=== PATIENT | female | born 1970 | race African-American/Black ===

== ENCOUNTER 2017-01-29 14:23 | Observation (INO) | payer OTHER ==
[2017-01-29 15:45] LABS: ABSOLUTE BASOPHILS # (AUTO) 0.1 10^3/uL (0.0-0.2); ABSOLUTE EOSINOPHILS # (AUTO) 0.2 10^3/uL (0.0-0.6); ABSOLUTE MONOCYTES (AUTO) 0.5 10^3/uL (0.1-1.4); ABSOLUTE NEUT (AUTO) 2.2 10^3/uL (1.7-8.2); BASOPHILS % (AUTO) 1.7 % (0-2); EOSINOPHILS % (AUTO) 3.6 % (0-6); HEMATOCRIT 23.4 % (36.0-47.0); HGB HCT DIFFERENCE -2.4; LYMPHOCYTES % (AUTO) 39.6 % (13-45); MEAN CORPUSCULAR HEMOGLOBIN 16.6 pg (27.0-33.4); MONOCYTES % (AUTO) 10.8 % (3-13); RED BLOOD COUNT 4.22 10^6/uL (3.72-5.28); RED CELL DISTRIBUTION WIDTH 20.4 % (11.5-14.0); SEGMENTED NEUTROPHILS % (AUTO) 44.3 % (42-78); WHITE BLOOD COUNT 5.1 10^3/uL (4.0-10.5)
[2017-01-29 16:16] LABS: ANISOCYTOSIS 2+; MICROCYTOSIS 3+
[2017-01-29 16:17] LABS: BURR CELLS SLIGHT; HYPOCHROMASIA 2+; OVALOCYTES 2+; POIKILOCYTOSIS 3+; ROULEAUX SLIGHT; TARGET CELLS SLIGHT
[2017-01-29 16:18] LABS: MEAN CORPUSCULAR VOLUME 55 fl (80-97)
[2017-01-29 16:24] LABS: FERRITIN 3.46 ng/mL (6.2-137.0)
[2017-01-29] MEDS ORDERED: NORMAL SALINE 250 ML IV PRN ×2 (16:26)
[2017-01-29 16:55] LABS: FOLATE 9.53 ng/mL (>2.76)
[2017-01-29] MEDS ORDERED: FUROSEMIDE INJ/PF 20 MG/2 ML SDV IV PRN (18:34)
[2017-01-30 02:00] LABS: ABSOLUTE BASOPHILS # (AUTO) 0.1 10^3/uL (0.0-0.2); ABSOLUTE EOSINOPHILS # (AUTO) 0.2 10^3/uL (0.0-0.6); ABSOLUTE LYMPHOCYTES (AUTO) 2.7 10^3/uL (0.5-4.7); ABSOLUTE MONOCYTES (AUTO) 0.8 10^3/uL (0.1-1.4); ABSOLUTE NEUT (AUTO) 3.2 10^3/uL (1.7-8.2); BASOPHILS % (AUTO) 1.6 % (0-2); EOSINOPHILS % (AUTO) 2.6 % (0-6); HEMOGLOBIN 8.4 g/dL (12.0-15.5); HGB HCT DIFFERENCE -1.8; LYMPHOCYTES % (AUTO) 38.1 % (13-45); MEAN CORPUSCULAR HEMOGLOBIN 18.5 pg (27.0-33.4); MEAN CORPUSCULAR HGB CONC 31.1 g/dL (32.0-36.0); RED BLOOD COUNT 4.55 10^6/uL (3.72-5.28); RED CELL DISTRIBUTION WIDTH 22.3 % (11.5-14.0); SEGMENTED NEUTROPHILS % (AUTO) 45.7 % (42-78)
[2017-01-30 02:41] LABS: MEAN CORPUSCULAR VOLUME 59 fl (80-97)
[2017-01-30 02:54] LABS: ACANTHOCYTES 1+; ANISOCYTOSIS 3+; BURR CELLS SLIGHT; MICROCYTOSIS 4+; OVALOCYTES 2+; POIKILOCYTOSIS 3+; TOXIC GRANULATION 1+
[2017-01-30 02:55] LABS: TARGET CELLS 1+; TEAR DROP CELLS SLIGHT
[2017-01-30 04:26] VITALS: BP 125/58
[2017-01-30 15:04] LABS: PATH REVIEW PATHOLOGIST REVIEWED
== END 2017-01-30 04:35 | disposition home or self-care (01) ==
LOC: 2N 14:23
PROVIDERS: ADMIT Internal Medicine; ATTEND Internal Medicine
PROC: 30233N1 Transfusion of Nonautologous Red Blood Cells into Peripheral Vein, Percutaneous Approach (ICD-10-PCS; principal; 2017-01-29)
DX: D64.9 Anemia, unspecified (principal)
CPT/HCPCS: 86900; 86901; 36415 ×2; 36430; 86850; 82607; 82728; 82746; 83540; 83550; 85025 ×2; 85045; 84466; 86920; G0378 ×2; G0379; P9016; J1940

== ENCOUNTER → 2017-05-22 | Outpatient (CLI) | payer OTHER ==
--- NOTE | 2017-05-22 09:21 | RADIOLOGY REPORT (SQ) ---
EXAM DESCRIPTION: U/S NON-OB PELVIS W/O DOP COMPLETED DATE/TIME: 05/22/2017 8:58 am REASON FOR STUDY: MENORRHAGIA (N92.4) N92.4 EXCESSIVE BLEEDING IN THE PREMENOPAUSAL PERIOD COMPARISON: None. TECHNIQUE: Dynamic and static grayscale images acquired of the pelvis via transabdominal approach an d recorded on PACS. Additional selected color Doppler and spectral images recorded. LIMITATIONS: None. FINDINGS: UTERUS: Enlarged. Markedly heterogenous with multiple nodular masses, the largest measuri ng 7.6 cm. ENDOMETRIAL STRIPE: Poorly visualized. CERVIX: No nabothian cysts. RIGHT OVARY: Ovary not visualized. RIGHT OVARY DOPPLER: Ovary not visualized. LEFT OVARY: Ovary not visualized. LEFT OVARY DOPPLER: Ovary not visualized. FREE FLUID: None noted. OTHER: No other significant finding. MEASUREMENTS: UTERUS: 8.6 x 10.7 x 12.0 cm. ENDOMETRIAL STRIPE: Not visualized. RIGHT OVARY: Not visualized. LEFT OVARY: Not visualized. IMPRESSION: ENLARGED UTERUS WITH MARKED HETEROGENEITY AND MULTIPLE LARGE MASSES, MOST LIKELY DUE TO UTERINE FIBROIDS. OVARIES NOT VISUALIZED. TECHNICAL DOCUMENTATION: JOB ID: [id number] [employer]- All Rights Reserved
== END ==
LOC: RAD 07:40
PROVIDERS: ATTEND Internal Medicine
DX: N92.4 Excessive bleeding in the premenopausal period (principal)
CPT/HCPCS: 76856

== ENCOUNTER → 2017-06-13 | Outpatient (CLI) | payer OTHER ==
--- NOTE | 2017-06-13 14:18 | WOMENS IMAGING REPORT ---
EXAM DESCRIPTION: 3D SCREENING MAMMO BILAT COMPLETED DATE/TIME: 06/13/2017 1:29 pm REASON FOR STUDY: ROUTINE SCREENING; Z12.31 Z12.31 ENCNTR SCREEN MAMMOGRAM FOR MALIGNANT NEOPLASM O F MARC COMPARISON: 01/01/2016 and 10/28/2014. TECHNIQUE: Standard craniocaudal and mediolateral oblique views of each breast recorded using digita l acquisition and breast tomosynthesis. LIMITATIONS: None. FINDINGS: Findings present which are benign by mammographic criteria. No suspicious masses, calcifi cations or architectural distortion. Pertinent benign findings: Stable circumscribed nodule in the right breast and stable benign dermal c alcifications. Read with the assistance of CAD. .[facility] - R2 Cenova Version 1.3 .[facility] Imaging - R2 Cenova Version 1.3 .[facility] Imaging - R2 Cenova Version 2.4 .[facility] - R2 Cenova Version 2.4 .[facility] - R2 Bottom Steep Tender Version 9.2 Benign mammographic findings may include one or more of the following: Smooth masses, popcorn/rim/co arse calcifications, asymmetries, post-procedure changes, and lesions with long-standing stability. IMPRESSION: BENIGN MAMMOGRAPHIC FINDINGS. BIRADS 2 BREAST DENSITY: b. There are scattered areas of fibroglandular density. BIRAD: 2 BENIGN FINDING(S) RECOMMENDATION: RECOMMENDATION: ROUTINE SCREENING COMMENT: The patient has been notified of the results by letter per SA requirements. Additional no tification policies are in place for contacting patient with suspicious or incomplete findings. Quality ID #[id number]: The [employer] recommends an annual screening mammogram for women aged 40 years or over. This facility utilizes a reminder system to ensure that all patients receive reminder letters, and/or direct phone calls for appointments. This includes reminders for routine scr eening mammograms, diagnostic mammograms, or other Breast Imaging Interventions when appropriate. Th is patient will be placed in the appropriate reminder system. The [employer] (ACR) has developed recommendations for screening MRI of the breast s in certain patient populations, to be used in conjunction with mammography. Breast MRI surveillanc e may be appropriate for women with more than 20% lifetime risk of developing breast cancer as deter mined by genetic testing, significant family history of the disease, or history of mantle radiation f or Hodgkins Disease. ACR Practice Guidelines 2008. DBT Technology DBT is a type of tomographic mammography. With conventional mammography, overlapping breast tissue ma y make lesions difficult to detect, even with good compression. DBT uses an x-ray tube that rotates a round the breast, taking images at different angles. These images are then combined to create thin sl ices of the breast that the radiologist can view as a 3D reconstruction. The Hologic unit can perform full-field digital mammograms (2D imaging); or DBT (3D imaging); or both, in a combination mode that quickly performs both the mammogram and the tomosynthesis scan while the breast is still compressed. PQRS 6045F: Fluoroscopic imaging is not utilized for breast tomosynthesis. TECHNICAL DOCUMENTATION: FINDING NUMBER: (1) ASSESSMENT: (1) JOB ID: [id number] [employer]- All Rights Reserved
== END ==
LOC: WI 13:17
PROVIDERS: ATTEND Internal Medicine
DX: Z12.31 Encounter for screening mammogram for malignant neoplasm of breast (principal)
CPT/HCPCS: 77063; G0202; 77067

== ENCOUNTER 2017-11-02 07:42 | Day surgery (SDC) | payer OTHER ==
--- NOTE | 2017-10-25 13:55 | EKG REPORT ---
SEVERITY:- ABNORMAL ECG - SINUS RHYTHM FIRST DEGREE AV BLOCK PROBABLE LEFT ATRIAL ABNORMALITY : Confirmed by: Marline Lindo 25-Oct-2017 13:54:21
[2017-10-25 14:19] LABS: HEMATOCRIT 35.7 % (36.0-47.0); HEMOGLOBIN 11.4 g/dL (12.0-15.5); MEAN CORPUSCULAR HEMOGLOBIN 23.4 pg (27.0-33.4); MEAN CORPUSCULAR HGB CONC 32.1 g/dL (32.0-36.0); MEAN CORPUSCULAR VOLUME 73 fl (80-97); PLATELET COUNT 326 10^3/uL (150-450); RED CELL DISTRIBUTION WIDTH 14.9 % (11.5-14.0)
[2017-10-25 14:31] LABS: APPEARANCE,URINE CLEAR; BILIRUBIN,URINE NEGATIVE (NEGATIVE); COLOR,URINE STRAW; GLUCOSE, URINE NEGATIVE (NEGATIVE); KETONES,URINE NEGATIVE (NEGATIVE); LEUKOCYTE ESTERASE,URINE NEGATIVE (NEGATIVE); NITRITE,URINE NEGATIVE (NEGATIVE); PROTEIN,URINE NEGATIVE (NEGATIVE); URINE SPECIFIC GRAVITY 1.009; UROBILINOGEN,URINE NEGATIVE mg/dL (<2.0)
[2017-10-25 14:42] LABS: ALANINE AMINOTRANSFERASE 30 U/L (9-52); ALBUMIN 4.1 g/dL (3.5-5.0); ALKALINE PHOSPHATASE 92 U/L (38-126); ANION GAP 11 (5-19); ASPARTATE AMINO TRANSFERASE 21 U/L (14-36); BILIRUBIN,DIRECT 0.2 mg/dL (0.0-0.4); BILIRUBIN,TOTAL 0.5 mg/dL (0.2-1.3); BLOOD UREA NITROGEN 9 mg/dL (7-20); CALCIUM 9.4 mg/dL (8.4-10.2); CARBON DIOXIDE 26 mmol/L (22-30); CHLORIDE 104 mmol/L (98-107); GLUCOSE 128 mg/dL (75-110); POTASSIUM 4.5 mmol/L (3.6-5.0); SODIUM 140.9 mmol/L (137-145); TOTAL PROTEIN 7.4 g/dL (6.3-8.2)
--- NOTE | 2017-10-30 15:41 | RADIOLOGY REPORT (SQ) ---
EXAM DESCRIPTION: CHEST PA/LATERAL COMPLETED DATE/TIME: 10/30/2017 3:19 pm REASON FOR STUDY: PRE OP COMPARISON: 04/07/2015 EXAM PARAMETERS: NUMBER OF VIEWS: two views TECHNIQUE: Digital Frontal and Lateral radiographic views of the chest acquired. RADIATION DOSE: NA LIMITATIONS: none FINDINGS: LUNGS AND PLEURA: No opacities, masses or pneumothorax. No pleural effusion. MEDIASTINUM AND HILAR STRUCTURES: No masses or contour abnormalities. HEART AND VASCULAR STRUCTURES: Heart normal size. No evidence for failure. BONES: No acute findings. HARDWARE: None in the chest. OTHER: No other significant finding. IMPRESSION: NO SIGNIFICANT RADIOGRAPHIC FINDING IN THE CHEST. TECHNICAL DOCUMENTATION: JOB ID: [id number] [employer]- All Rights Reserved
[2017-10-30 16:21] LABS: HEMOGLOBIN 10.5 g/dL (12.0-15.5); MEAN CORPUSCULAR HEMOGLOBIN 23.5 pg (27.0-33.4); MEAN CORPUSCULAR HGB CONC 32.7 g/dL (32.0-36.0); MEAN CORPUSCULAR VOLUME 72 fl (80-97); PLATELET COUNT 287 10^3/uL (150-450); RED BLOOD COUNT 4.46 10^6/uL (3.72-5.28); RED CELL DISTRIBUTION WIDTH 15.1 % (11.5-14.0); WHITE BLOOD COUNT 6.5 10^3/uL (4.0-10.5)
[2017-10-30 16:56] LABS: ALANINE AMINOTRANSFERASE 35 U/L (9-52); ALBUMIN 3.6 g/dL (3.5-5.0); ALKALINE PHOSPHATASE 87 U/L (38-126); ANION GAP 11 (5-19); ASPARTATE AMINO TRANSFERASE 26 U/L (14-36); BILIRUBIN,DIRECT 0.1 mg/dL (0.0-0.4); BILIRUBIN,TOTAL 0.2 mg/dL (0.2-1.3); BLOOD UREA NITROGEN 11 mg/dL (7-20); CALCIUM 8.9 mg/dL (8.4-10.2); CARBON DIOXIDE 23 mmol/L (22-30); CHLORIDE 108 mmol/L (98-107); GLUCOSE 132 mg/dL (75-110); POTASSIUM 4.2 mmol/L (3.6-5.0); SODIUM 141.9 mmol/L (137-145); TOTAL PROTEIN 6.5 g/dL (6.3-8.2)
[~2017-11-02 07:42] MED LIST: BUPIVACAINE HCL 0.25% /EPINEPHRINE INJ/PF 30 ML SDV ONE; CEFAZOLIN 1 GM/D5W RTU 1 GM/50 ML RTUPB IV PRN; LACTATED RINGERS 1000 ML IV PRN; LIDOCAINE 0.5% INJ-PF (5 MG/ML) 50 ML SDV SUBCUT PRN; METHYLENE BLUE 50 MG/10 ML AMPULE ONE
[2017-11-02 08:22] LABS: INTERNATIONAL RATION (INR) 0.89; PROTHROMBIN TIME 12.7 SEC (11.4-15.4)
[2017-11-02 08:23] LABS: PARTIAL THROMBOPLASTIN TIME 28.8 SEC (23.5-35.8)
[2017-11-02] MEDS ORDERED: ALBUTEROL SULFATE 0.083% NEB 2.5 MG/3 ML AMPUL NEB ONE ×2 (08:36→09:00)
[2017-11-02] MEDS ORDERED: FAMOTIDINE INJ/PF 20 MG/2 ML SDV IV ONE ×2 (08:37→09:00)
[2017-11-02] MEDS ORDERED: METOCLOPRAMIDE HCL INJ/PF 10 MG/2 ML SDV ONE (08:45)
[2017-11-02] MEDS ORDERED: METOCLOPRAMIDE HCL INJ/PF 10 MG/2 ML SDV IV ONE (09:00)
[2017-11-02] MEDS ORDERED: MIDAZOLAM 2 MG/2 ML INJ ONE (09:05)
[2017-11-02] MEDS ORDERED: DEXMEDETOMIDINE INJ 80 MCG/20 ML VIAL IV ONE (09:05)
[2017-11-02] MEDS ORDERED: ACETAMINOPHEN 100 ML IV ONE ×2 (09:05→15:30)
[2017-11-02] MEDS ORDERED: PROPOFOL INJ 200 MG/20 ML VIAL IV ONE (09:05)
[2017-11-02] MEDS ORDERED: FENTANYL CITRATE INJ/PF 100 MCG/2 ML AMPUL ONE ×2 (09:05→13:38)
[2017-11-02] MEDS ORDERED: HYDROMORPHONE HCL INJ/PF 2 MG/ML AMPULE ONE (09:06)
[2017-11-02] MEDS ORDERED: BUPIVACAINE HCL 0.25% /EPINEPHRINE INJ/PF 30 ML SDV ONE (09:18)
[2017-11-02] MEDS ORDERED: MEPERIDINE HCL/PF INJ 25 MG/1 ML DISP.SYRIN IV PRN (10:15)
[2017-11-02] MEDS ORDERED: ONDANSETRON HCL INJ/PF 4 MG/2 ML SDV IV PRN ×2 (10:15→18:24)
[2017-11-02] MEDS ORDERED: DIPHENHYDRAMINE HCL 50 MG/ML VIAL IV PRN (10:15)
[2017-11-02] MEDS ORDERED: LABETALOL HCL INJ 20 MG/4 ML DISP.SYRIN IV PRN (10:15)
[2017-11-02] MEDS ORDERED: PROMETHAZINE HCL INJ 25 MG/1 ML VIAL IV PRN ×2 (10:15)
[2017-11-02] MEDS ORDERED: FENTANYL CITRATE INJ/PF 100 MCG/2 ML AMPUL IV PRN ×3 (10:15)
[2017-11-02] MEDS ORDERED: EPHEDRINE SULFATE INJ 50 MG/1 ML AMPULE ONE (10:55)
[2017-11-02] MEDS ORDERED: IBUPROFEN 800 MG in NORMAL SALINE 250 ML IV ONE (13:30)
[2017-11-02] MEDS ORDERED: OXYCODONE-ACETAMINOPHEN 5-325 MG TABLET PO PRN (15:03)
[2017-11-02] MEDS: MORPHINE SULFATE 10 MG/ML INJ IV PRN ×2 (16:30→19:48)
[2017-11-02] MEDS ORDERED: ONDANSETRON HCL INJ/PF 4 MG/2 ML SDV ONE (16:39)
[2017-11-02] MEDS ORDERED: SUCCINYLCHOLINE CHLORIDE INJ 200 MG/10 ML VIAL ONE (16:39)
[2017-11-02] MEDS ORDERED: DEXAMETHASONE SOD PHOSPHATE INJ 4 MG/1 ML VIAL ONE (16:39)
[2017-11-02] MEDS ORDERED: ROCURONIUM BROMIDE INJ 50 MG/5 ML VIAL IV ONE (16:39)
[2017-11-02] MEDS ORDERED: LIDOCAINE 2% INJ-PF (20 MG/ML) 2 ML AMPUL ONE (16:39)
[2017-11-02] MEDS ORDERED: NEOSTIGMINE METHYLSULFATE 10 MG/10 ML VIAL ONE (16:39)
[2017-11-02] MEDS ORDERED: GLYCOPYRROLATE INJ 0.4 MG/2 ML VIAL ONE (16:39)
[2017-11-02] MEDS ORDERED: IBUPROFEN 800 MG TABLET PO PRN (16:59)
[2017-11-02] MEDS ORDERED: FUROSEMIDE 20 MG TABLET PO PRN ×2 (16:59→17:03)
[2017-11-02] MEDS ORDERED: ENOXAPARIN SODIUM 120 MG SUBCUT PRN (16:59)
[2017-11-02] MEDS: RINGERS SOLUTION,LACTATED 1,000 ML IV PRN (17:00)
[2017-11-02] MEDS: KETOROLAC TROMETHAMINE INJ/PF 30 MG/1 ML SDV IV SCH (18:41)
[2017-11-02] MEDS ORDERED: ENOXAPARIN SODIUM 120 MG SUBCUT SCH (21:00)
[2017-11-02] MEDS: ENOXAPARIN SODIUM INJ 40 MG/0.4 ML DISP.SYRIN SUBCUT SCH (22:22)
[2017-11-03] MEDS: KETOROLAC TROMETHAMINE INJ/PF 30 MG/1 ML SDV IV SCH ×2 (01:42→10:49)
[2017-11-03] MEDS: RINGERS SOLUTION,LACTATED 1,000 ML IV PRN (02:11)
[2017-11-03] MEDS: LANSOPRAZOLE 30 MG TAB.RAP.DR PO SCH ×2 (05:02→16:54)
[2017-11-03] MEDS: MORPHINE SULFATE 10 MG/ML INJ IV PRN (05:23)
[2017-11-03 05:26] LABS: HEMATOCRIT 28.5 % (36.0-47.0); HEMOGLOBIN 9.1 g/dL (12.0-15.5); MEAN CORPUSCULAR HGB CONC 31.9 g/dL (32.0-36.0); MEAN CORPUSCULAR VOLUME 72 fl (80-97); PLATELET COUNT 277 10^3/uL (150-450); RED BLOOD COUNT 3.96 10^6/uL (3.72-5.28); RED CELL DISTRIBUTION WIDTH 14.9 % (11.5-14.0); WHITE BLOOD COUNT 18.1 10^3/uL (4.0-10.5)
[2017-11-03] MEDS ORDERED: NALOXONE HCL INJ/PF 0.4 MG/1 ML SDV ONE (06:48)
[2017-11-03 06:58] LABS: HEMATOCRIT 26.9 % (36.0-47.0); HEMOGLOBIN 8.6 g/dL (12.0-15.5); MEAN CORPUSCULAR HEMOGLOBIN 23.1 pg (27.0-33.4); MEAN CORPUSCULAR HGB CONC 32.1 g/dL (32.0-36.0); MEAN CORPUSCULAR VOLUME 72 fl (80-97); PLATELET COUNT 265 10^3/uL (150-450); RED BLOOD COUNT 3.73 10^6/uL (3.72-5.28); RED CELL DISTRIBUTION WIDTH 15.2 % (11.5-14.0); WHITE BLOOD COUNT 19.1 10^3/uL (4.0-10.5)
[2017-11-03 07:09] LABS: BLOOD UREA NITROGEN 11 mg/dL (7-20); CALCIUM 8.7 mg/dL (8.4-10.2); GLUCOSE 128 mg/dL (75-110)
[2017-11-03 07:10] LABS: ANION GAP 8 (5-19); CARBON DIOXIDE 24 mmol/L (22-30); CHLORIDE 108 mmol/L (98-107); POTASSIUM 4.1 mmol/L (3.6-5.0); SODIUM 139.6 mmol/L (137-145)
[2017-11-03 07:12] LABS: INTERNATIONAL RATION (INR) 1.05; PARTIAL THROMBOPLASTIN TIME 28.6 SEC (23.5-35.8); PROTHROMBIN TIME 14.4 SEC (11.4-15.4)
[2017-11-03] MEDS ORDERED: NALOXONE HCL INJ/PF 0.4 MG/1 ML SDV IV ONE (07:15)
[2017-11-03 07:22] LABS: CREATINE KINASE MB 1.08 ng/mL (<4.55); NT PRO BNP 301 pg/mL (<125)
[2017-11-03 07:23] LABS: TROPONIN I < 0.012 ng/mL
[2017-11-03 07:47] LABS: ABSOLUTE LYMPHOCYTES# (MANUAL) 2.7 10^3/uL (0.5-4.7); ABSOLUTE MONOCYTES # (MANUAL) 1.1 10^3/uL (0.1-1.4); ABSOLUTE NEUTROPHILS# (MANUAL) 15.3 10^3/uL (1.7-8.2); BASOPHILS % (MANUAL) 0 % (0-2); EOSINOPHILS % (MANUAL) 0 % (0-6); LYMPHOCYTES % (MANUAL) 14 % (13-45); MONOCYTES % (MANUAL) 6 % (3-13); SEGMENTED NEUTROPHILS % (MAN) 80 % (42-78); TOTAL CELLS COUNTED 100
[2017-11-03 07:48] LABS: BURR CELLS SLIGHT; HYPOCHROMASIA SLIGHT; OVALOCYTES 2+; PLATELET COMMENT ADEQUATE; POIKILOCYTOSIS 2+; POLYCHROMASIA 1+; TOXIC VACUOLATION PRESENT
--- NOTE | 2017-11-03 07:53 | EKG REPORT ---
SEVERITY:- ABNORMAL ECG - SINUS RHYTHM FIRST DEGREE AV BLOCK : Confirmed by: Liborio Min MD 03-Nov-2017 07:53:29
[2017-11-03] MEDS ORDERED: (PENDING PHARMACY ID) (Losartan Potassium [Losartan Potassium] 100 MG) PO SCH (10:00)
[2017-11-03] MEDS ORDERED: ENOXAPARIN SODIUM INJ 120 MG/0.8 ML DISP.SYRIN SUBCUT SCH (10:00)
--- NOTE | 2017-11-03 10:30 | RADIOLOGY REPORT (SQ) ---
EXAM DESCRIPTION: CTA CHEST COMPLETED DATE/TIME: 11/03/2017 10:14 am REASON FOR STUDY: rule out pE N92.1 EXCESSIVE AND FREQUENT MENSTRUATION WITH IRREGULAR CYC D25.9 L EIOMYOMA OF UTERUS, UNSPECIFIED COMPARISON: CT chest 05/26/2016 TECHNIQUE: CT scan of the chest performed using helical scanning technique with dynamic intravenous contrast injection. Images reviewed with lung, soft tissue and bone windows. Reconstructed coronal and sagittal MPR images reviewed. Additional 3 dimensional post-processing performed to develop Maximal Intensity Projection images (UT P). All images stored on PACS. All CT scanners at this facility use dose modulation, iterative reconstruction, and/or weight based d osing when appropriate to reduce radiation dose to as low as reasonably achievable (ALARA). [facility]: Dose Right [facility]: CareDose [facility]: Dose Right [facility]: Teradose 4D [facility]: [place] CONTRAST TYPE AND DOSE: contrast/concentration: Isovue 370.00 mg/ml; Total Contrast Delivered: 79.0 ml; Total Saline Delivered: 110.0 ml Contrast bolus adequate for pulmonary arteries and aorta. RENAL FUNCTION: Creatinine 0.72 RADIATION DOSE: CT Rad equipment meets quality standard of care and radiation dose reduction techniq ues were employed. CTDIvol: 2.8 - 39.4 mGy. DLP: 3089 mGy-cm. . LIMITATIONS: None. FINDINGS: LUNGS AND PLEURA: There is atelectasis in the posterior costophrenic sulci bilaterally, an d in the posterior aspect of the right upper lobe. No pleural effusions. No pneumothorax. No pulmonary nodules. Airways are patent. AORTA AND GREAT VESSELS: No aneurysm. No gross evidence of thoracic aortic dissection HEART: No pericardial effusion. No significant coronary artery calcifications. Mild cardiomegaly. PULMONARY ARTERIES: No emboli to the main, right or left lobar, or proximal segmental pulmonary arter ies. HILAR AND MEDIASTINAL STRUCTURES: No identified masses or abnormal nodes. HARDWARE: None in the chest. UPPER ABDOMEN: Post gastric sleeve procedure. Small hiatal hernia. Clips right upper quadrant post cholecystectomy. THYROID AND OTHER SOFT TISSUES: Mild diffuse thyromegaly BONES: No acute or significant finding. 3D MIPS: Confirm above findings. OTHER: No other significant finding. IMPRESSION: No CT angio evidence of acute pulmonary emboli or thoracic aortic dissection Dependent atelectasis bilaterally Mild cardiomegaly COMMENT: Quality ID # 436: Final reports with documentation of one or more dose reduction techniques (e.g., Automated exposure control, adjustment of the mA and/or kV according to patient size, use of iterative reconstruction technique) TECHNICAL DOCUMENTATION: JOB ID: [id number] [employer]- All Rights Reserved
--- NOTE | 2017-11-03 10:36 | RADIOLOGY REPORT (SQ) ---
EXAM DESCRIPTION: CT ABD/PELVIS WITH IV ONLY COMPLETED DATE/TIME: 11/03/2017 10:19 am REASON FOR STUDY: bleeding, operative site N92.1 EXCESSIVE AND FREQUENT MENSTRUATION WITH IRREGULAR CYC D25.9 LEIOMYOMA OF UTERUS, UNSPECIFIED COMPARISON: CT angio chest same date Pelvic ultrasound 05/22/2017 TECHNIQUE: CT scan of the abdomen and pelvis performed using helical scanning technique with dynamic intravenous contrast injection. No oral contrast. Images reviewed with lung, soft tissue, and bone windows. Reconstructed coronal and sagittal MPR images reviewed. Delayed images for evaluation of the urinary system also acquired. All images stored on PACS. All CT scanners at this facility use dose modulation, iterative reconstruction, and/or weight based d osing when appropriate to reduce radiation dose to as low as reasonably achievable (ALARA). [facility]: Dose Right [facility]: CareDose [facility]: Dose Right [facility]: Teradose 4D [facility]: Netpulse CONTRAST TYPE AND DOSE: 79 mm Isovue 370- low osmolar. RENAL FUNCTION: Creatinine 0.72 RADIATION DOSE: 46 mGy. LIMITATIONS: None. FINDINGS: Patient is post hysterectomy. There are benign postsurgical air bubbles along the anterio r abdominal wall fat and inferior aspect of the rectus muscle sheath. Few tiny air bubbles in the sp terrie of Retzius. No incisional or pelvic hematoma. Uterus is surgically absent. Normal size ovaries bilaterally adjacent to the external iliac artery a nd vein on axial image 80. There is an air bubble in the urinary bladder likely from prior Cole catheter. No free pelvic fluid. LOWER CHEST: Bibasilar atelectasis. Mild cardiomegaly. LIVER: Normal size. No masses. No dilated ducts. SPLEEN: Normal size. No focal lesions. PANCREAS: No masses. No significant calcifications. No adjacent inflammation or peripancreatic fluid collections. Pancreatic duct not dilated. GALLBLADDER: Surgically absent ADRENAL GLANDS: No significant masses or asymmetry. RIGHT KIDNEY AND URETER: No solid masses. 2 mm right lower pole intrarenal nonobstructive stone. No hydronephrosis or hydroureter. LEFT KIDNEY AND URETER: No solid masses. 10 mm right lower pole intrarenal nonobstructive stone. No hydronephrosis or hydroureter. AORTA AND VESSELS: No aneurysm. No dissection. Renal arteries, SMA, celiac without stenosis. RETROPERITONEUM: No retroperitoneal adenopathy, hemorrhage or masses. BOWEL AND PERITONEAL CAVITY: No masses or inflammatory changes. No free fluid or peritoneal masses. Post gastric sleeve procedure APPENDIX: Normal. PELVIS: As above ABDOMINAL WALL: No masses. No hernias. BONES: No significant or acute findings. OTHER: No other significant finding. IMPRESSION: Expected benign postoperative changes over the pelvis and low anterior abdominal wall po st recent hysterectomy. No CT findings worrisome for abscess or hematoma. TECHNICAL DOCUMENTATION: JOB ID: [id number] Quality ID # [id number]: Final reports with documentation of one or more dose reduction techniques (e.g., Au tomated exposure control, adjustment of the mA and/or kV according to patient size, use of iterative reconstruction technique) 2010 [employer]- All Rights Reserved
--- NOTE | 2017-11-03 10:45 | PDOC PROGRESS REPORT ---
Subjective Progress Note for:: 11/03/17 Subjective:: had episode of unresponsiveness earlier today after administration of morphine. Now feeling well except for normal post operative pain at incision and some mild nausea. no flatus as yet. Reason For Visit: N92.1 EXCESSIVE AND FREQUENT MENSTRUATION W, D25.9 Physical Exam - Physical Exam Vital Signs: Temp Pulse Resp BP Pulse Ox 98.5 F 82 20 137/68 H 100 11/03/17 08:00 11/03/17 08:00 11/03/17 08:00 11/03/17 08:00 11/03/17 08:00 Pulse Oximeter Continuous Start: 11/02/17 16: 55 Freq: Status: Active Document 11/03/17 04:39 EAL (Rec: 11/03/17 04:39 EAL [email or web address]) Pulse Oximetry Assessment Oxygen Saturation (92-100) 100 Oxygen Flow Rate (L/min) 2 Oxygen Delivery Method Nasal Cannula Fraction of Inspired Oxygen (FIO2) 28 Equipment Usage Equipment in Use Continuous SpO2 Machine # n1 Intake & Output 11/02/17 11/03/17 11/04/17 06:59 06:59 06:59 Intake Total 2750 Output Total 1900 Balance 850 Weight 127.01 kg General appearance: PRESENT: no acute distress, cooperative - abdomen soft and appropriately tender at incision. + BS that are soft. Result Laboratory Results: 11/03/17 06:47 11/03/17 06:47 11/03/17 11/03/17 11/03/17 05:02 06:47 06:47 WBC 18.1 H 19.1 H RBC 3.96 3.73 Hgb 9.1 L 8.6 L Hct 28.5 L 26.9 L MCV 72 L 72 L MCH 23.0 L 23.1 L MCHC 31.9 L 32.1 RDW 14.9 H 15.2 H Plt Count 277 265 Seg Neutrophils % Not Reportable Lymphocytes % Not Reportable Monocytes % Not Reportable Eosinophils % Not Reportable Basophils % Not Reportable Absolute Neutrophils Not Reportable Absolute Lymphocytes Not Reportable Absolute Monocytes Not Reportable Absolute Eosinophils Not Reportable Absolute Basophils Not Reportable Sodium Potassium Chloride Carbon Dioxide Anion Gap BUN Creatinine Est GFR ( Amer) Est GFR (Non-Af Amer) Glucose Calcium Blood Type O POSITIVE Antibody Screen NEGATIVE 11/03/17 06:47 WBC RBC Hgb Hct MCV MCH MCHC RDW Plt Count Seg Neutrophils % Lymphocytes % Monocytes % Eosinophils % Basophils % Absolute Neutrophils Absolute Lymphocytes Absolute Monocytes Absolute Eosinophils Absolute Basophils Sodium 139.6 Potassium 4.1 Chloride 108 H Carbon Dioxide 24 Anion Gap 8 BUN 11 Creatinine 0.72 Est GFR ( Amer) > 60 Est GFR (Non-Af Amer) > 60 Glucose 128 H Calcium 8.7 Blood Type Antibody Screen 11/03/17 06:47 CK-MB (CK-2) 1.08 Troponin I < 0.012 NT-Pro-B Natriuret Pep 301 H Impressions: Chest X-Ray 10/30/17 15:07 IMPRESSION: NO SIGNIFICANT RADIOGRAPHIC FINDING IN THE CHEST. Abdomen/Pelvis CT 11/03/17 00:00 IMPRESSION: Expected benign postoperative changes over the pelvis and low anterior abdominal wall post recent hysterectomy. No CT findings worrisome for abscess or hematoma. Chest/Abdomen CTA 11/03/17 00:00 IMPRESSION: No CT angio evidence of acute pulmonary emboli or thoracic aortic dissection Dependent atelectasis bilaterally Mild cardiomegaly Assessment & Plan - Diagnosis (1) Abnormal uterine bleeding Is this a current diagnosis for this admission?: Yes (2) Leiomyoma of body of uterus Qualifiers: Uterine leiomyoma location: intramural, submucous, and subserous Qualified Code(s): D25.1 - Intramural leiomyoma of uterus; D25.0 - Submucous leiomyoma of uterus; D25.0 - Submucous leiomyoma of uterus; D25.2 - Subserosal leiomyoma of uterus; D25.2 - Subserosal leiomyoma of uterus Is this a current diagnosis for this admission?: Yes (3) Pelvic pain Is this a current diagnosis for this admission?: Yes (4) Anemia Qualifiers: Iron deficiency anemia type: chronic blood loss Is this a current diagnosis for this admission?: Yes (5) Morbid obesity due to excess calories Is this a current diagnosis for this admission?: No - Plan Summary Plan Summary: CT scans both negative for PE or post op hematoma/abscess. Other labs appropriate. Hypotensive event most likely from recent Morphine administration. Continue current managment. Will continue to plan for discharge in AM unless otherwise indicated.
[2017-11-03] MEDS: LOSARTAN POTASSIUM 50 MG TABLET PO SCH (10:49)
[2017-11-03] MEDS: ENOXAPARIN SODIUM INJ 40 MG/0.4 ML DISP.SYRIN SUBCUT SCH ×2 (10:49→21:31)
[2017-11-03] MEDS: IBUPROFEN 800 MG TABLET PO PRN (18:18)
[2017-11-04] MEDS: IBUPROFEN 800 MG TABLET PO PRN ×2 (01:04→11:27)
[2017-11-04] MEDS: LANSOPRAZOLE 30 MG TAB.RAP.DR PO SCH (07:19)
[2017-11-04] MEDS: LOSARTAN POTASSIUM 50 MG TABLET PO SCH (09:50)
[2017-11-04] MEDS: ENOXAPARIN SODIUM INJ 40 MG/0.4 ML DISP.SYRIN SUBCUT SCH (09:51)
[2017-11-04 10:53] VITALS: BP 138/67
--- NOTE | 2017-11-04 10:54 | PDOC DISCHARGE SUMMARY ---
General - Admit/Disc Date/PCP Admission Date/Primary Care Provider: CARRIE HERNANDEZ MD Discharge Date: 11/04/17 - Discharge Diagnosis (1) Abnormal uterine bleeding Is this a current diagnosis for this admission?: Yes (2) Leiomyoma of body of uterus Is this a current diagnosis for this admission?: Yes (3) Pelvic pain Is this a current diagnosis for this admission?: Yes (4) Anemia Is this a current diagnosis for this admission?: Yes (5) Morbid obesity due to excess calories Is this a current diagnosis for this admission?: No - Additional Information Home Medications: Furosemide [Lasix 20 mg Tablet] 1 cap PO DAILY PRN 05/27/16 Esomeprazole Magnesium [Nexium] 40 mg PO BID 10/25/17 Ibuprofen [Motrin 800 mg Tablet] 800 mg PO TID PRN 10/25/17 Enoxaparin Sodium [Lovenox Inj 120 mg/0.8 ml Disp.syrin] 120 mg SUBCUT ASDIR PRN 11/01/17 Losartan Potassium 100 mg PO DAILY 11/01/17 History of Present Illness History of Present Illness: STEVEN CORREIA is a 47 year old female Hospital Course Hospital Course: underwent SHERON w/ b/l salpingectomy. Post operative episode of syncope with negative PE w/u. Otherwise, normal post operative course. Physical Exam - Physical Exam Vital Signs: Temp Pulse Resp BP Pulse Ox 98.4 F 77 20 143/72 H 97 11/04/17 08:40 11/04/17 08:40 11/04/17 08:40 11/04/17 08:40 11/04/17 08:40 Pulse Oximeter Continuous Start: 11/02/17 16: 55 Freq: RTQ4 Status: Active Document 11/04/17 04:00 SFL (Rec: 11/04/17 05:13 SFL [email or web address]) Pulse Oximetry Assessment Oxygen Saturation (92-100) 100 Oxygen Flow Rate (L/min) 2 Oxygen Delivery Method Nasal Cannula Equipment Usage Equipment in Use Continuous Pulse Oximeter 24 Hour Charge Charge Now Continuous SpO2 Machine # 1 Intake & Output 11/03/17 11/04/17 11/05/17 06:59 06:59 06:59 Intake Total 2750 620 Output Total 1900 500 Balance 850 120 Weight 127.01 kg General appearance: PRESENT: no acute distress, cooperative GI/Abdominal exam: PRESENT: soft, tenderness - appropriate post op pain. dressing partially stained. No signs of infection. Result Laboratory Results: 11/03/17 06:47 11/03/17 06:47 11/03/17 06:47 CK-MB (CK-2) 1.08 Troponin I < 0.012 NT-Pro-B Natriuret Pep 301 H Impressions: Chest X-Ray 10/30/17 15:07 IMPRESSION: NO SIGNIFICANT RADIOGRAPHIC FINDING IN THE CHEST. Abdomen/Pelvis CT 11/03/17 00:00 IMPRESSION: Expected benign postoperative changes over the pelvis and low anterior abdominal wall post recent hysterectomy. No CT findings worrisome for abscess or hematoma. Chest/Abdomen CTA 11/03/17 00:00 IMPRESSION: No CT angio evidence of acute pulmonary emboli or thoracic aortic dissection Dependent atelectasis bilaterally Mild cardiomegaly Plan Discharge Plan: will discharge home with normal post operative instructions and precautions. To follow up in 1 week at [facility] for dressing removal and incision check. Time Spent: Less than 30 Minutes
--- NOTE | 2017-11-30 17:09 | OPERATIVE REPORT E ---
Operative Report NAME: STEVEN CORREIA : 1970 AGE: 47Y DATE OF SURGERY: 11/02/2017 ROOM: 212 PREOPERATIVE DIAGNOSES: 1. Abnormal uterine bleeding. 2. Symptomatic fibroids. 3. Anemia. POSTOPERATIVE DIAGNOSES: 1. Abnormal uterine bleeding. 2. Symptomatic fibroids. 3. Anemia. SURGEON: CRISTA REES M.D. ANESTHESIA: Dr. Valerio with general. FINDINGS: A 12-week uterus with multiple fibroids. COMPLICATIONS: None. ESTIMATED BLOOD LOSS: 500 mL. SPECIMENS REMOVED: Uterus, cervix, and fallopian tubes x2. PROCEDURE: Total abdominal hysterectomy with bilateral salpingectomy. PROCEDURE IN DETAIL: Attempt was made for a vaginal approach; however, it was quickly ascertained that the uterus was too large. Therefore, a switch to an open laparotomy approach was taken and the patient was placed in supine position with Cole catheter to gravity. The skin incision was made in a Pfannenstiel fashion and carried through to the underlying layer of fascia with the same scalpel. The fascia was excised and extended laterally. The fascia was dissected from the rectus muscle sharply with Alejandre's. The rectus muscle was divided and the peritoneal cavity was entered bluntly. The bowel was then packed away with moist laparotomy sponges and the patient was placed in Trendelenburg. An Case retractor was placed to assist with visualization. The uterus was grasped on the fundus with a couple of towel clips for manipulation, and beginning with the left fallopian tube, this was transected using the LigaSure. The utero-ovarian ligament was then transected using the LigaSure and the uterine arteries were skeletonized and transected using the LigaSure on the left. This procedure was repeated on the right adnexa, removing the fallopian tube and then transecting the utero-ovarian ligament with the LigaSure and continuing transection and skeletonization of the uterine artery again with the LigaSure until the cervix was palpable. The upper portion of the uterus and all the fibroids were then amputated using a 10-blade scalpel and the cervical stump was grasped with a couple of Ford's. The vaginal cuff angles were then tied off with 2 sutures of 0 Vicryl until the cervix was palpable underneath in the mucosa and the rest of the specimen was then amputated with Adrián's using the cervix as a guide. The vaginal cuff was then closed with interrupted sutures of 0 Vicryl. The pedicles were reinspected and found to be hemostatic. The held sutures were cut and the bowel was unpacked and the fascia was closed in with 0 Vicryl. The subcutaneous layer was closed with plain catgut and the skin was closed with 4-0 Vicryl. Patient tolerated procedure well. Sponge, lap, and needle counts were correct x2, and the patient was taken to recovery in stable condition. DICTATING PHYSICIAN: CRISTA REES M.D. [id number] PHY#: [id number] ID: [id number] JOB#: [id number] ACCT: [id number] cc:CRISTA REES M.D. >
== END 2017-11-04 12:40 | disposition home or self-care (01) ==
LOC: OROUT 07:42 → 2N 14:29 → OROUT 11-04 12:40
PROVIDERS: ATTEND Obstetrics & Gynecology
PROC: 0UT70ZZ Resection of Bilateral Fallopian Tubes, Open Approach (ICD-10-PCS; 2017-11-02)
PROC: 0UT97ZZ Resection of Uterus, Via Natural or Artificial Opening (ICD-10-PCS; 2017-11-02)
PROC: 0UT90ZZ Resection of Uterus, Open Approach (ICD-10-PCS; principal; 2017-11-02 09:30)
DX: N92.1 Excessive and frequent menstruation with irregular cycle (principal); D25.9 Leiomyoma of uterus, unspecified; N80.0 Endometriosis of uterus; N84.0 Polyp of corpus uteri; N83.8 Other noninflammatory disorders of ovary, fallopian tube and broad ligament; R10.2 Pelvic and perineal pain; D50.9 Iron deficiency anemia, unspecified; E11.9 Type 2 diabetes mellitus without complications; I10 Essential (primary) hypertension; G47.33 Obstructive sleep apnea (adult) (pediatric); D86.9 Sarcoidosis, unspecified; K21.9 Gastro-esophageal reflux disease without esophagitis; J45.909 Unspecified asthma, uncomplicated; I51.7 Cardiomegaly; J98.11 Atelectasis; E66.01 Morbid (severe) obesity due to excess calories; Z68.42 Body mass index [BMI] 45.0-49.9, adult; Z79.899 Other long term (current) drug therapy; Z79.1 Long term (current) use of non-steroidal anti-inflammatories (NSAID); Z79.01 Long term (current) use of anticoagulants; Z86.711 Personal history of pulmonary embolism
CPT/HCPCS: 58150; 58260; 93005 ×2; 86900 ×2; 86901 ×2; 36415 ×3; 82553; 86850 ×2; 82962; 84132; 85025; 85027 ×3; 85610; 85730; 81025; 80048; 80053 ×2; 81001; 84484; 83880; 88307 ×2; 71020; 71275; 74177; 93010 ×2; 94762 ×3; J2250; J3490 ×4; J0690; J1100; J3010; J1885 ×2; J2765; J2270 ×2; J2310; J1650 ×3; J1170; J0330; J2405; J7050; J7120 ×2; J2704; S0028; J0131; J1741; Q9968; 944

== ENCOUNTER 2017-11-09 21:52 | Inpatient (IN) | payer OTHER ==
--- NOTE | 2017-11-09 22:14 | ER Document Report ---
ED General - General Chief Complaint: Shortness Of Breath Stated Complaint: SHORTNESS OF BREATH Time Seen by Provider: 11/09/17 22:13 Notes: Patient is a 47 year old female who is POD 7 from a SHERON with Dr Coleman. She presents today complaining of chest pain, shortness of breath and generalized weakness that started today. She admits to a h/o PE's and is on home lovenox. She states today she woke up from a nap and felt like her BP was really low and felt drained. She states she took a nap and then woke up this evening with chest discomfort and tightness in her chest. She states given her history of PE she wanted to come to the ED. She also admits to a h/o anemia requiring Fe and blood transfusions over the past year PMH: HTN, anemia, h/o PE PSH: gastric bypass, SHERON, right ankle reconstruction SH: denies tobacco use, etoh or drug use TRAVEL OUTSIDE OF THE [place] IN LAST 30 DAYS: No - Related Data Allergies/Adverse Reactions: No Known Allergies Allergy (Verified 11/09/17 21:53) Past Medical History - Social History Smoking Status: Unknown if Ever Smoked Family History: Reviewed & Not Pertinent, Other Patient has suicidal ideation: No Patient has homicidal ideation: No - Past Medical History Cardiac Medical History: Reports: Hx Hypertension Denies: Hx Coronary Artery Disease, Hx Heart Attack Pulmonary Medical History: Reports: Hx Pneumonia Denies: Hx Asthma, Hx Bronchitis, Hx COPD - SARCOID Neurological Medical History: Denies: Hx Cerebrovascular Accident, Hx Seizures Endocrine Medical History: Reports: Hx Diabetes Mellitus Type 2 Renal/ Medical History: Reports: Hx Kidney Stones. Denies: Hx Peritoneal Dialysis GI Medical History: Reports: Hx Gastroesophageal Reflux Disease Musculoskeltal Medical History: Reports Hx Arthritis Past Surgical History: Reports: Hx Abdominal Surgery, Hx Breast Surgery, Hx Cholecystectomy, Hx Gastric Bypass Surgery, Hx Orthopedic Surgery - steel plate to rle. - Immunizations Immunizations up to date: Yes Hx Diphtheria, Pertussis, Tetanus Vaccination: Yes Review of Systems - Review of Systems Constitutional: See HPI EENT: No symptoms reported Cardiovascular: No symptoms reported Respiratory: See HPI Gastrointestinal: See HPI Female Genitourinary: See HPI Neurological/Psychological: No symptoms reported -: Yes All other systems reviewed and negative Physical Exam - Vital signs Vitals: Pulse Ox 100 11/09/17 22:23 - Notes Notes: PHYSICAL EXAM GENERAL: Alert, interacts well. HEAD: Normocephalic, atraumatic. NECK: Full range of motion. Supple. Trachea midline. LUNGS: Clear to auscultation bilaterally, no wheezes, rales, or rhonchi. No respiratory distress. HEART: Regular rate and rhythm. No murmurs, gallops, or rubs. ABDOMEN: Soft, obese, nondistended, minimal tendnerss over incision without induration, purulent drainage or erythema. No guarding, rebound, or rigidity.. Bowel sounds present in all 4 quadrants. EXTREMITIES: Moves all 4 extremities spontaneously. No edema, radial and dorsalis pedis pulses 2/4 bilaterally. No cyanosis. NEUROLOGICAL: Alert and oriented x4. Normal speech. PSYCH: Normal affect, normal mood. SKIN: Warm, dry, normal turgor. No rashes or lesions noted. Course - Re-evaluation Re-evalutation: 11/10/17 02:30 Patient is a 47 year old female who is hemodynamically stable, no acute distress and afebrile. Vital signs stable without evidence of tachycardia, hypotension. CBC with anemia at hgb of 7.7 down from 8.4 at discharge. No indication for transfusion at this time. Chemistry stable without electrolyte abnormalities, troponins negative without EKG changes. Low clinical suspicion for ACS given clinical history, exam, EKG without ST elevations or depressions, and negative initial troponin. HEART score less than or equal to 3. CXR without evidence of pneumothorax or pneumonia. No widened mediastinum. Aortic dissection also seems unlikely given history, symmetric pulses, CXR, and vitals. CTA negative, patient resting comfortablly without evidence of tachypnea , tachycardia or hypoxia. Given patiens anemia and presentation, she is preferring admission. She has been admitted to Dr. Bell on OBGYN - Vital Signs Vital signs: Temp Pulse Resp BP Pulse Ox 83 20 112/68 100 11/10/17 03:54 11/10/17 03:54 11/10/17 03:54 11/10/17 03:54 - Laboratory Result Diagrams: 11/09/17 22:45 11/09/17 22:45 Laboratory results interpreted by me: 11/09/17 11/09/17 22:45 22:45 RBC 3.33 L Hgb 7.7 L Hct 23.8 L MCV 72 L MCH 23.1 L RDW 15.5 H Glucose 124 H Creatine Kinase 385 H Albumin 3.2 L - Diagnostic Test Radiology reviewed: Image reviewed, Reports reviewed - EKG Interpretation by Me EKG shows normal: Sinus rhythm Rate: Normal Rhythm: NSR When compared to previous EKG there are: No significant change Discharge - Discharge Clinical Impression: Anemia Qualifiers: Anemia type: unspecified type Qualified Code(s): D64.9 - Anemia, unspecified Condition: Stable Disposition: ADMITTED INPATIENT Admitting Provider: [facility] Admitted: Post
--- NOTE | 2017-11-09 22:42 | RADIOLOGY REPORT (SQ) ---
EXAM DESCRIPTION: CHEST SINGLE VIEW COMPLETED DATE/TIME: 11/09/2017 10:32 pm REASON FOR STUDY: chest pain COMPARISON: 10/30/2017 EXAM PARAMETERS: NUMBER OF VIEWS: One view. TECHNIQUE: Single frontal radiographic view of the chest acquired. RADIATION DOSE: NA LIMITATIONS: None. FINDINGS: LUNGS AND PLEURA: No acute opacities, masses or pneumothorax. No pleural effusion. MEDIASTINUM AND HILAR STRUCTURES: Stable. HEART AND VASCULAR STRUCTURES: Stable. BONES: No acute findings. HARDWARE: None in the chest. OTHER: No other significant finding. IMPRESSION: NO ACUTE RADIOGRAPHIC FINDING IN THE CHEST. TECHNICAL DOCUMENTATION: JOB ID: [id number] [place]-72 2010 [employer]- All Rights Reserved
[2017-11-09 23:02] LABS: ABSOLUTE BASOPHILS # (AUTO) 0.1 10^3/uL (0.0-0.2); ABSOLUTE EOSINOPHILS # (AUTO) 0.4 10^3/uL (0.0-0.6); ABSOLUTE LYMPHOCYTES (AUTO) 2.3 10^3/uL (0.5-4.7); ABSOLUTE MONOCYTES (AUTO) 0.8 10^3/uL (0.1-1.4); ABSOLUTE NEUT (AUTO) 5.2 10^3/uL (1.7-8.2); BASOPHILS % (AUTO) 1.3 % (0-2); EOSINOPHILS % (AUTO) 4.5 % (0-6); HEMATOCRIT 23.8 % (36.0-47.0); LYMPHOCYTES % (AUTO) 25.8 % (13-45); MEAN CORPUSCULAR HEMOGLOBIN 23.1 pg (27.0-33.4); MEAN CORPUSCULAR HGB CONC 32.4 g/dL (32.0-36.0); MEAN CORPUSCULAR VOLUME 72 fl (80-97); MONOCYTES % (AUTO) 8.9 % (3-13); PLATELET COUNT 357 10^3/uL (150-450); RED BLOOD COUNT 3.33 10^6/uL (3.72-5.28); RED CELL DISTRIBUTION WIDTH 15.5 % (11.5-14.0); SEGMENTED NEUTROPHILS % (AUTO) 59.5 % (42-78); TOTAL CELLS COUNTED % (AUTO) 100 %; WHITE BLOOD COUNT 8.7 10^3/uL (4.0-10.5)
[2017-11-09 23:07] LABS: HEMOGLOBIN 7.7 g/dL (12.0-15.5)
[2017-11-09 23:16] LABS: ALANINE AMINOTRANSFERASE 21 U/L (9-52); ALBUMIN 3.2 g/dL (3.5-5.0); ALKALINE PHOSPHATASE 73 U/L (38-126); ANION GAP 6 (5-19); ASPARTATE AMINO TRANSFERASE 22 U/L (14-36); BILIRUBIN,DIRECT 0.3 mg/dL (0.0-0.4); BILIRUBIN,TOTAL 0.4 mg/dL (0.2-1.3); BLOOD UREA NITROGEN 9 mg/dL (7-20); CALCIUM 8.8 mg/dL (8.4-10.2); CARBON DIOXIDE 30 mmol/L (22-30); CHLORIDE 105 mmol/L (98-107); CREATINE KINASE 385 U/L (30-135); GLUCOSE 124 mg/dL (75-110); POTASSIUM 3.8 mmol/L (3.6-5.0); SODIUM 140.6 mmol/L (137-145); TOTAL PROTEIN 6.3 g/dL (6.3-8.2)
[2017-11-09 23:27] LABS: CREATINE KINASE MB 0.66 ng/mL (<4.55); TROPONIN I 0.015 ng/mL
[2017-11-10] MEDS ORDERED: OXYCODONE-ACETAMINOPHEN 5-325 MG TABLET PO ONE (00:35)
--- NOTE | 2017-11-10 01:58 | RADIOLOGY REPORT (SQ) ---
EXAM DESCRIPTION: CTA of the chest per PE protocol with contrast. CLINICAL HISTORY: post op(hysterectomy), h/o PE, shortness of breath and chest pain. COMPARISON: None Available. TECHNIQUE: CTA of the chest obtained following the uncomplicated intravenous administration of 98.4 mL Isovue-370. 3-D/MIP reformatted images of the chest available for evaluation. FINDINGS: Chest: Mediastinal windows demonstrate an adequate contrast bolus. No pulmonary embolus identified in the main, left, right, or lobar pulmonary arterial branches. Suboptimal evaluation of the segmental and subsegmental pulmonary arterial branch arterial branches due to contrast bolus timing and respiratory motion artifact. Visualized thyroid gland is unremarkable. Great vessels have normal anatomic configuration. No cardiomegaly, coronary artery atherosclerosis, or pericardial effusion. No abnormalities of the esophagus. Scattered mediastinal lymph nodes are not enlarged by CT criteria. Lung windows demonstrate mild dependent atelectasis. No lobar consolidation, pneumothorax, or pleural effusion. No abnormalities of the visualized trachea or airways. Limited images of the upper abdomen demonstrate no abnormalities of the visualized liver, spleen, pancreas, or right adrenal gland. No destructive osseous lesions. DLP: 1426.74 mGycm IMPRESSION: 1. No acute pulmonary embolus identified. Suboptimal evaluation of the segmental and subsegmental pulmonary dural branches due to contrast bolus timing and respiratory motion artifact. This exam was performed according to our departmental dose-optimization program, which includes automated exposure control, adjustment of the mA and/or kV according to patient size and/or use of iterative reconstruction technique.
[2017-11-10] MEDS ORDERED: OXYCODONE-ACETAMINOPHEN 5-325 MG TABLET PO PRN ×2 (05:21→06:17)
[2017-11-10] MEDS ORDERED: RINGERS SOLUTION,LACTATED 1,000 ML IV PRN (05:23)
[2017-11-10] MEDS ORDERED: IBUPROFEN 800 MG TABLET PO PRN ×2 (06:17)
[2017-11-10] MEDS ORDERED: ENOXAPARIN SODIUM 120 MG SUBCUT PRN (06:17)
[2017-11-10] MEDS ORDERED: FUROSEMIDE 20 MG TABLET PO PRN (06:17)
[2017-11-10] MEDS ORDERED: NORMAL SALINE 250 ML IV PRN (06:29)
[2017-11-10] MEDS ORDERED: DIPHENHYDRAMINE HCL 50 MG CAPSULE PO ONE (06:35)
[2017-11-10] MEDS ORDERED: LANSOPRAZOLE 30 MG TAB.RAP.DR PO ONE (07:00)
--- NOTE | 2017-11-10 07:08 | HISTORY AND PHYSICAL E ---
History and Physical NAME: STEVEN CORREIA : 1970 AGE: 47Y ADMITTED: 11/10/2017 ROOM: 209 HISTORY OF PRESENT ILLNESS: She is a 47-year-old female who is 7 days out from abdominal hysterectomy with Dr. Coleman. She presents complaining of chest pain, shortness of breath, weakness, and feeling drained. PAST MEDICAL HISTORY: Significant for: 1. Anemia. 2. History of pulmonary embolism. PAST SURGICAL HISTORY: Includes: 1. Gastric bypass. 2. SHERON. 3. Right ankle surgery. SOCIAL HISTORY: She denies alcohol or drug use. ALLERGIES: No known drug allergies. FAMILY HISTORY: Not relevant. CARDIAC HISTORY: Includes a history of hypertension. PULMONARY HISTORY: Includes history of pneumonia and PE. REVIEW OF SYSTEMS: CARDIAC: Above mentioned PE and pneumonia. LUNGS: Likewise. PHYSICAL EXAMINATION: VITAL SIGNS: Pulse is 83, respirations 20, blood pressure 112/68, pulse ox is 100. GENERAL: She is alert, oriented, appropriate. HEENT: Unremarkable. NECK: Supple. LUNGS: Clear. HEART: Regular rate and rhythm. ABDOMEN: Obese with tenderness around the incision as expected. EXTREMITIES: No clubbing, cyanosis, or edema. NEUROLOGICAL: She is intact. LABORATORY WORK: Anemia of 7.7, hemoglobin and hematocrit of 23.8. EKG is normal sinus rhythm. CT shows no PE. ASSESSMENT: Anemia after hysterectomy. PLAN: The patient desires to be admitted. We will do that and evaluate the need for blood transfusion versus iron transfusion. DICTATING PHYSICIAN: RICHARDSON RAMÍREZ M.D. [id number] Y#: [id number] ID: [id number] JOB#: [id number] ACCT: [id number] cc:RICHARSDON RAMÍREZ M.D. >
--- NOTE | 2017-11-10 09:11 | PDOC CONSULTATION ---
Consultation Consult Date: 11/10/17 Attending physician:: RICHARDSON RAMÍREZ Consult reason:: Severe anemia History of Present Illness Admission Date/PCP: 11/10/17 03:15 CARRIE HERNANDEZ MD Patient complains of: Fatigue, weakness, shortness of breath History of Present Illness: STEVEN CORREIA is a 47 year old female with known history of heavy periods and fibroids, she also has strong family history of breast cancer so she had genetic testing indicating a variant that was concerning for a familial cause of cancer, so ultimately she was plan for hysterectomy because of the menorrhagia, but we recommended bilateral oophorectomy as well to prevent the possibility of ovarian cancer in the future. We saw her initially about 4 months ago when she was severely iron deficient, she was given IV iron in the last few months, her hemoglobin most recently with us in August was 10. But even then she was still iron deficient. She underwent surgery about 1 week ago , had SHERON/BSO, after she got home she felt very weak and tired, she was short of breath, she was brought in, hemoglobin was 7.7. CTA of the chest was done to rule out PE and it did rule that out. Past Medical History Cardiac Medical History: Reports: Hypertension Denies: Congestive Heart Failure, Coronary Artery Disease, Myocardial Infarction Pulmonary Medical History: Reports: Pneumonia Denies: Asthma, Bronchitis, Chronic Obstructive Pulmonary Disease (COPD), Tuberculosis Neurological Medical History: Denies: Seizures Endocrine Medical History: Reports: Diabetes Mellitus Type 2 Renal/ Medical History: Denies: End Stage Renal Disease Malignancy Medical History: Reports: None GI Medical History: Reports: Gastroesophageal Reflux Disease Denies: Cirrhosis Musculoskeltal Medical History: Reports: Arthritis Psychiatric Medical History: Reports: Depression Denies: Bipolar Disorder Hematology: Reports: Anemia, Bleeding Tendencies - Fibroids Past Surgical History Past Surgical History: Reports: Cholecystectomy, Gastric Bypass Surgery, Orthopedic Surgery - steel plate to rle., Other - SHERON/BSO Social History Smoking Status: Never Smoker Frequency of Alcohol Use: None Hx Recreational Drug Use: No Drugs: None Hx Prescription Drug Abuse: No - Advance Directive Resuscitation Status: Full Code Family History Family History: Reviewed & Not Pertinent, Other Parental Family History Reviewed: Yes Children Family History Reviewed: Yes Sibling(s) Family History Reviewed.: Yes Medication/Allergy Home Medications: Furosemide [Lasix 20 mg Tablet] 1 cap PO DAILY PRN 05/27/16 Esomeprazole Magnesium [Nexium] 40 mg PO BID 10/25/17 Ibuprofen [Motrin 800 mg Tablet] 800 mg PO TID PRN 10/25/17 Enoxaparin Sodium [Lovenox Inj 120 mg/0.8 ml Disp.syrin] 120 mg SUBCUT ASDIR PRN 11/01/17 Losartan Potassium 100 mg PO DAILY 11/01/17 Ibuprofen [Motrin 800 mg Tablet] 800 mg PO Q8HP PRN #60 tablet 11/04/17 Oxycodone HCl/Acetaminophen [Percocet 5-325 mg Tablet] 2 tab PO Q6HP PRN #30 tablet 11/04/17 Allergies/Adverse Reactions: No Known Allergies Allergy (Verified 11/10/17 04:52) Review of Systems Constitutional: PRESENT: fatigue, weakness Cardiovascular: PRESENT: dyspnea on exertion Respiratory: PRESENT: dyspnea Gastrointestinal: PRESENT: abdominal pain Integumentary: PRESENT: diaphoresis Neurological: PRESENT: weakness Physical Exam Vital Signs: Temp Pulse Resp BP Pulse Ox 98.8 F 75 16 139/66 H 100 11/10/17 07:37 11/10/17 07:37 11/10/17 07:37 11/10/17 07:37 11/10/17 07:37 General appearance: PRESENT: no acute distress Eye exam: PRESENT: conjunctiva pale Mouth exam: PRESENT: other - OM pale Respiratory exam: PRESENT: clear to auscultation caden. ABSENT: rales, rhonchi, wheezes Cardiovascular exam: PRESENT: RRR. ABSENT: diastolic murmur, rubs, systolic murmur GI/Abdominal exam: PRESENT: normal bowel sounds, soft. ABSENT: distended, guarding, mass, organolmegaly, rebound, tenderness Rectal exam: PRESENT: deferred Neurological exam: PRESENT: alert, awake, oriented to person, oriented to place , oriented to time, oriented to situation, CN II-XII grossly intact. ABSENT: motor sensory deficit Results Impressions: Chest X-Ray 11/09/17 21:53 IMPRESSION: NO ACUTE RADIOGRAPHIC FINDING IN THE CHEST. Chest/Abdomen CTA 11/10/17 00:00 IMPRESSION: 1. No acute pulmonary embolus identified. Suboptimal evaluation of the segmental and subsegmental pulmonary dural branches due to contrast bolus timing and respiratory motion artifact. This exam was performed according to our departmental dose-optimization program, which includes automated exposure control, adjustment of the mA and/or kV according to patient size and/or use of iterative reconstruction technique. 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 If all is stable by tomorrow she should be able to be discharged home with follow-up in our office. She does have follow-up in about 2 weeks anyway. Will follow. - Time Time Spent: Greater than 70 Minutes - Inpatient Certification Based on my medical assessment, after consideration of the patient's comorbidities, presenting symptoms, or acuity I expect that the services needed warrant INPATIENT care.: Yes I certify that my determination is in accordance with my understanding of Medicare's requirements for reasonable and necessary INPATIENT services [42 CFR 412.3e].: Yes Medical Necessity: Other - Transfusion, IV iron, monitoring
[2017-11-10 09:48] LABS: ABSOLUTE RETICS # 0.089 10^6/uL (0.028-0.122); RETICULOCYTE COUNT (AUTO) 2.71 % (0.66-2.85)
[2017-11-10] MEDS ORDERED: FUROSEMIDE INJ/PF 20 MG/2 ML SDV IV PRN (10:00)
[2017-11-10] MEDS ORDERED: ACETAMINOPHEN 325 MG TABLET PO PRN (10:00)
[2017-11-10] MEDS ORDERED: (PENDING PHARMACY ID) (Losartan Potassium [Losartan Potassium] 100 MG) PO SCH (10:00)
[2017-11-10] MEDS ORDERED: FERUMOXYTOL (NON-ESRD) 510 MG/NS 100 ML IV ONE ×2 (10:00)
[2017-11-10] MEDS: LOSARTAN POTASSIUM 50 MG TABLET PO SCH (10:45)
[2017-11-10 11:01] LABS: IRON(TIBC) 26.7 ug/dL (37-170)
[2017-11-10 11:37] LABS: FERRITIN 8.58 ng/mL (6.2-137.0)
[2017-11-10 16:54] LABS: HEMATOCRIT 24.8 % (36.0-47.0); HEMOGLOBIN 8.1 g/dL (12.0-15.5); MEAN CORPUSCULAR HEMOGLOBIN 23.9 pg (27.0-33.4); MEAN CORPUSCULAR HGB CONC 32.7 g/dL (32.0-36.0); MEAN CORPUSCULAR VOLUME 73 fl (80-97); PLATELET COUNT 334 10^3/uL (150-450); RED BLOOD COUNT 3.39 10^6/uL (3.72-5.28); RED CELL DISTRIBUTION WIDTH 16.2 % (11.5-14.0); WHITE BLOOD COUNT 8.4 10^3/uL (4.0-10.5)
[2017-11-10] MEDS: LANSOPRAZOLE 30 MG TAB.RAP.DR PO SCH (18:12)
[2017-11-11] MEDS: OXYCODONE-ACETAMINOPHEN 5-325 MG TABLET PO PRN ×3 (02:22→21:04)
[2017-11-11] MEDS ORDERED: ASPIRIN 81 MG TABLET, CHEWABLE PO ONE (02:42)
[2017-11-11] MEDS ORDERED: ASPIRIN 81 MG TABLET, CHEWABLE ONE (02:58)
[2017-11-11] MEDS ORDERED: ENOXAPARIN SODIUM INJ 40 MG/0.4 ML DISP.SYRIN SUBCUT SCH ×3 (03:30→10:00)
[2017-11-11 03:39] LABS: CREATINE KINASE MB 0.23 ng/mL (<4.55); TROPONIN I 0.013 ng/mL
[2017-11-11] MEDS ORDERED: NORMAL SALINE 250 ML IV PRN (03:39)
[2017-11-11 03:41] LABS: ALANINE AMINOTRANSFERASE 26 U/L (9-52); ALBUMIN 3.1 g/dL (3.5-5.0); ALKALINE PHOSPHATASE 76 U/L (38-126); ANION GAP 7 (5-19); ASPARTATE AMINO TRANSFERASE 20 U/L (14-36); BILIRUBIN,DIRECT 0.2 mg/dL (0.0-0.4); BILIRUBIN,TOTAL 0.7 mg/dL (0.2-1.3); BLOOD UREA NITROGEN 9 mg/dL (7-20); CALCIUM 9.4 mg/dL (8.4-10.2); CARBON DIOXIDE 27 mmol/L (22-30); CHLORIDE 108 mmol/L (98-107); GLUCOSE 113 mg/dL (75-110); SODIUM 142.4 mmol/L (137-145)
--- NOTE | 2017-11-11 03:57 | PDOC PROGRESS REPORT ---
Subjective Progress Note for:: 11/11/17 Subjective:: RN called to eval patient due to Chest pain. No SOB. pt reports heaviness in her chest Reason For Visit: ANEMIA Physical Exam - Physical Exam Vital Signs: Temp Pulse Resp BP Pulse Ox 98.2 F 69 18 143/72 H 100 11/11/17 00:03 11/11/17 00:03 11/11/17 00:03 11/11/17 00:03 11/11/17 00:03 Intake & Output 11/09/17 11/10/17 11/11/17 06:59 06:59 06:59 Intake Total 300 Balance 300 Weight 121.563 kg General appearance: PRESENT: cooperative, mild distress, morbidly obese, well- developed, well-nourished Head exam: PRESENT: atraumatic, normocephalic Cardiovascular exam: PRESENT: irregular rhythm, +S1, +S2, tachycardia Pulses: PRESENT: normal dorsalis pedis pul, +2 pedal pulses bilateral Vascular exam: PRESENT: normal capillary refill GI/Abdominal exam: PRESENT: normal bowel sounds, soft, other - approp ttp. ABSENT: distended, guarding, mass, organolmegaly, rebound, tenderness Rectal exam: PRESENT: deferred Extremities exam: PRESENT: full ROM. ABSENT: calf tenderness, clubbing, pedal edema Musculoskeletal exam: PRESENT: ambulatory Neurological exam: PRESENT: alert, awake, oriented to person, oriented to place , oriented to time, oriented to situation, CN II-XII grossly intact. ABSENT: motor sensory deficit Psychiatric exam: PRESENT: appropriate affect, normal mood. ABSENT: homicidal ideation, suicidal ideation Result Laboratory Results: 11/10/17 16:47 11/11/17 02:58 11/10/17 11/11/17 16:47 02:58 WBC 8.4 RBC 3.39 L Hgb 8.1 L Hct 24.8 L MCV 73 L MCH 23.9 L MCHC 32.7 RDW 16.2 H Plt Count 334 Sodium 142.4 Potassium 4.0 Chloride 108 H Carbon Dioxide 27 Anion Gap 7 BUN 9 Creatinine 0.66 Est GFR ( Amer) > 60 Est GFR (Non-Af Amer) > 60 Glucose 113 H Calcium 9.4 Magnesium Cancelled Total Bilirubin 0.7 AST 20 ALT 26 Alkaline Phosphatase 76 Total Protein 6.0 L Albumin 3.1 L 11/11/17 11/11/17 02:58 02:58 Creatine Kinase 243 H CK-MB (CK-2) 0.23 Troponin I 0.013 NT-Pro-B Natriuret Pep 231 H Impressions: Chest X-Ray 11/09/17 21:53 IMPRESSION: NO ACUTE RADIOGRAPHIC FINDING IN THE CHEST. Chest/Abdomen CTA 11/10/17 00:00 IMPRESSION: 1. No acute pulmonary embolus identified. Suboptimal evaluation of the segmental and subsegmental pulmonary dural branches due to contrast bolus timing and respiratory motion artifact. This exam was performed according to our departmental dose-optimization program, which includes automated exposure control, adjustment of the mA and/or kV according to patient size and/or use of iterative reconstruction technique. Assessment & Plan - Diagnosis (1) Chest pain Qualifiers: Chest pain type: other chest pain Qualified Code(s): R07.89 - Other chest pain; R07.8 - Other chest pain Is this a current diagnosis for this admission?: Yes Plan: EKG done. Cardiac labs done. Dr. Wallace called. Denice noted. REcommend transfer to Tele FLoor. Transfer to Tele Floor. Attempted to contact to Alley (who is carbon dioxide operator for [facility]). RN given orders until I arrived on to see patient. Still unable to reach Dr. Hager since [phone] - now [phone]. We very much appreciate Dr. Wallace's assistance with this patient. (2) Morbid obesity Is this a current diagnosis for this admission?: Yes (3) History of pulmonary embolism Is this a current diagnosis for this admission?: Yes Plan: Recent SHERON/Bilateral Salpingectomy. REviewed with Dr. Harris - recommended Lovenox 120mg BID. (4) Anemia Qualifiers: Anemia type: iron deficiency Iron deficiency anemia type: chronic blood loss Qualified Code(s): D50.0 - Iron deficiency anemia secondary to blood loss (chronic) Is this a current diagnosis for this admission?: Yes Plan: Chronic Anemia - IV iron infusion. Pt given one unit of blood earlier today with good response. S/w Dr. Hanson and recommended to give 2nd unit of blood. I very much appreciate Dr. Hanson for his assistance with this patient. - Time Time Spent with patient: 55minutes Time Spent with patient: 35 or more minutes Medications reviewed and adjusted accordingly: Yes Anticipated discharge: Home - Inpatient Certification Based on my medical assessment, after consideration of the patient's comorbidities, presenting symptoms, or acuity I expect that the services needed warrant INPATIENT care.: Yes I certify that my determination is in accordance with my understanding of Medicare's requirements for reasonable and necessary INPATIENT services [42 CFR 412.3e].: Yes Medical Necessity: Need Close Monitoring Due to Risk of Patient Decompensation, Need For Continuous Telemetry Monitoring, Risk of Complication if Not Cared For in Hospital 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
[2017-11-11 04:09] LABS: INTERNATIONAL RATION (INR) 0.96; PROTHROMBIN TIME 13.4 SEC (11.4-15.4)
[2017-11-11 04:10] LABS: PARTIAL THROMBOPLASTIN TIME 27.3 SEC (23.5-35.8)
[2017-11-11] MEDS ORDERED: CEFAZOLIN 2 GM/D5W RTU 2 GM/50 ML RTUPB IV SCH (06:00)
[2017-11-11] MEDS: LANSOPRAZOLE 30 MG TAB.RAP.DR PO SCH ×2 (08:42→17:27)
[2017-11-11 09:29] LABS: CREATINE KINASE MB 0.32 ng/mL (<4.55); NT PRO BNP 307 pg/mL (<125)
[2017-11-11 09:31] LABS: TROPONIN I < 0.012 ng/mL
[2017-11-11] MEDS: FUROSEMIDE 20 MG TABLET PO SCH (09:39)
[2017-11-11] MEDS: LOSARTAN POTASSIUM 50 MG TABLET PO SCH ×2 (09:40→17:27)
[2017-11-11] MEDS ORDERED: ENOXAPARIN SODIUM INJ 120 MG/0.8 ML DISP.SYRIN SUBCUT ONE (10:30)
--- NOTE | 2017-11-11 11:47 | PDOC PROGRESS REPORT ---
Subjective Progress Note for:: 11/11/17 Subjective:: Yesterday patient received 1 unit of blood as well as IV iron, hemoglobin posttransfusion was in the 8 range, she felt better and is a full walk around the [place] on the second floor, soon after she got back to the room she had fairly severe crushing chest pain and shortness of breath, she was having tachycardia, she appeared in stable to the staff there, JEWEL[employer]DEL [employer]KER was called and patient was transferred to the fourth floor under the medical service, Dr. Hager. Today had a long discussion about her history, she originally had PE in 2015 post gastric sleeve procedure, she was on anticoagulation for over a year and came to us about 4 months ago when she was having severe iron deficiency anemia , at that time we decided on holding anticoagulation because of the bleeding, she had fibroids and was having severe menorrhagia. Ultimately we gave her IV iron, improved her hemoglobin to greater than 10 she was taken for surgery about a week ago for hysterectomy as well as bilateral oophorectomy. The reason we did the oophorectomy was we did genetic testing and she had a concerning mutation that would increase her risk for ovarian cancer in the future, so we decided on recommending bilateral nephrectomy at the time of hysterectomy. She was placed on prophylactic anticoagulation prior to the hysterectomy and she had it after hysterectomy. Reason For Visit: MORBID OBESITY, DM, HTN, POSTOP FROM HYSTERECTOMY Physical Exam Vital Signs: Temp Pulse Resp BP Pulse Ox 98.4 F 69 17 130/72 H 97 11/11/17 10:58 11/11/17 10:58 11/11/17 10:58 11/11/17 10:58 11/11/17 10:58 Intake & Output 11/10/17 11/11/17 11/12/17 06:59 06:59 06:59 Intake Total 418 300 Balance 418 300 Weight 121.563 kg General appearance: PRESENT: no acute distress, well-developed, well-nourished Head exam: PRESENT: atraumatic, normocephalic Eye exam: PRESENT: conjunctiva pink, EOMI, PERRLA. ABSENT: scleral icterus Ear exam: PRESENT: normal external ear exam Mouth exam: PRESENT: moist, tongue midline Neck exam: ABSENT: carotid bruit, JVD, lymphadenopathy, thyromegaly Respiratory exam: PRESENT: clear to auscultation caden. ABSENT: rales, rhonchi, wheezes Cardiovascular exam: PRESENT: RRR. ABSENT: diastolic murmur, rubs, systolic murmur Pulses: PRESENT: normal dorsalis pedis pul Vascular exam: PRESENT: normal capillary refill GI/Abdominal exam: PRESENT: normal bowel sounds, soft. ABSENT: distended, guarding, mass, organolmegaly, rebound, tenderness Rectal exam: PRESENT: deferred Extremities exam: PRESENT: full ROM. ABSENT: calf tenderness, clubbing, pedal edema Neurological exam: PRESENT: alert, awake, oriented to person, oriented to place , oriented to time, oriented to situation, CN II-XII grossly intact. ABSENT: motor sensory deficit Psychiatric exam: PRESENT: appropriate affect, normal mood. ABSENT: homicidal ideation, suicidal ideation Skin exam: PRESENT: dry, intact, warm. ABSENT: cyanosis, rash Results Laboratory Results: 11/10/17 16:47 11/11/17 02:58 11/10/17 11/11/17 11/11/17 16:47 02:58 02:58 WBC 8.4 RBC 3.39 L Hgb 8.1 L Hct 24.8 L MCV 73 L MCH 23.9 L MCHC 32.7 RDW 16.2 H Plt Count 334 Sodium 142.4 Potassium 4.0 Chloride 108 H Carbon Dioxide 27 Anion Gap 7 BUN 9 Creatinine 0.66 Est GFR ( Amer) > 60 Est GFR (Non-Af Amer) > 60 Glucose 113 H Calcium 9.4 Magnesium Cancelled 1.8 Total Bilirubin 0.7 AST 20 ALT 26 Alkaline Phosphatase 76 Total Protein 6.0 L Albumin 3.1 L 11/11/17 11/11/17 11/11/17 02:58 02:58 08:53 Creatine Kinase 243 H 236 H CK-MB (CK-2) 0.23 Troponin I 0.013 NT-Pro-B Natriuret Pep 231 H 11/11/17 08:53 Creatine Kinase CK-MB (CK-2) 0.32 Troponin I < 0.012 NT-Pro-B Natriuret Pep 307 H Impressions: Chest X-Ray 11/09/17 21:53 IMPRESSION: NO ACUTE RADIOGRAPHIC FINDING IN THE CHEST. Chest/Abdomen CTA 11/10/17 00:00 IMPRESSION: 1. No acute pulmonary embolus identified. Suboptimal evaluation of the segmental and subsegmental pulmonary dural branches due to contrast bolus timing and respiratory motion artifact. This exam was performed according to our departmental dose-optimization program, which includes automated exposure control, adjustment of the mA and/or kV according to patient size and/or use of iterative reconstruction technique. Assessment & Plan - Diagnosis (1) Anemia Qualifiers: Anemia type: iron deficiency Iron deficiency anemia type: chronic blood loss Qualified Code(s): D50.0 - Iron deficiency anemia secondary to blood loss (chronic) Is this a current diagnosis for this admission?: Yes Plan: She was given 1 more unit of packed red blood cells this morning because of the continued chest pain, I ordered a repeat CBC, if it is in the 9 range and she is able to walk around the [place] without severe chest pain shortness of breath, that she probably can be discharged tomorrow, she will have follow-up in our office in 2 weeks for repeat labs and further IV iron if needed. Now that she has had a hysterectomy, once we fully normalize her ferritin, she probably will not continue to be anemic. (2) Other pulmonary embolism without acute cor pulmonale Qualifiers: Chronicity: chronic Qualified Code(s): I27.82 - Chronic pulmonary embolism Is this a current diagnosis for this admission?: Yes Plan: She did have PE history in 2015, I have discontinued her full anticoagulation and transition to prophylactic anticoagulation only. She did have a CTA of the chest when she presented on this admission she does not have a current PE. The previous PE was provoked so she was appropriately treated and as long she is prophylaxed while she is inpatient she should not have a repeat occurrence of this. Upon discharge she should not require any anticoagulation. - Time Time Spent with patient: 35 or more minutes Total Critical Time (Minutes): 40 - Inpatient Certification Based on my medical assessment, after consideration of the patient's comorbidities, presenting symptoms, or acuity I expect that the services needed warrant INPATIENT care.: Yes I certify that my determination is in accordance with my understanding of Medicare's requirements for reasonable and necessary INPATIENT services [42 CFR 412.3e].: Yes Medical Necessity: Need Close Monitoring Due to Risk of Patient Decompensation, Need For Continuous Telemetry Monitoring, Risk of Complication if Not Cared For in Hospital
--- NOTE | 2017-11-11 12:44 | PDOC CONSULTATION ---
Consultation Consult Date: 11/11/17 Attending physician:: CARRIE HERNANDEZ Consult reason:: Chest pain History of Present Illness Admission Date/PCP: 11/10/17 04:15 CARRIE HERNANDEZ MD Patient complains of: Chest pain History of Present Illness: STEVEN CORREIA is a 47 year old female with known history of heavy periods and fibroids, she also has strong family history of breast cancer so she had genetic testing indicating a variant that was concerning for a familial cause of cancer, so ultimately she was plan for hysterectomy because of the menorrhagia, but we recommended bilateral oophorectomy as well to prevent the possibility of ovarian cancer in the future. We saw her initially about 4 months ago when she was severely iron deficient, she was given IV iron in the last few months, her hemoglobin most recently with us in August was 10. But even then she was still iron deficient. She underwent surgery about 1 week ago , had SHERON/BSO, after she got home she felt very weak and tired, she was short of breath, she was brought in, hemoglobin was 7.7. CTA of the chest was done to rule out PE and it did rule that out. This history was reviewed and confirmed. Patient describes having had a stress test within the last 1 year which apparently was unremarkable and therefore was cleared for surgery. Patient also describes having had a ultrasound of her heart. Past Medical History Cardiac Medical History: Reports: Hypertension Denies: Congestive Heart Failure, Coronary Artery Disease, Myocardial Infarction Pulmonary Medical History: Reports: Pneumonia Denies: Asthma, Bronchitis, Chronic Obstructive Pulmonary Disease (COPD), Tuberculosis Neurological Medical History: Denies: Seizures Endocrine Medical History: Reports: Diabetes Mellitus Type 2 Renal/ Medical History: Denies: End Stage Renal Disease Malignancy Medical History: Reports: None GI Medical History: Reports: Gastroesophageal Reflux Disease Denies: Cirrhosis Musculoskeltal Medical History: Reports: Arthritis Psychiatric Medical History: Reports: Depression Denies: Bipolar Disorder Hematology: Reports: Anemia, Bleeding Tendencies - Fibroids Past Surgical History Past Surgical History: Reports: Cholecystectomy, Gastric Bypass Surgery, Orthopedic Surgery - steel plate to rle. Social History Information Source: Patient Smoking Status: Never Smoker Frequency of Alcohol Use: None Hx Recreational Drug Use: No Drugs: None Hx Prescription Drug Abuse: No - Advance Directive Resuscitation Status: Full Code Surrogate healthcare decision maker:: Currently full code, patient's daughter, eldest is the surrogate decision-maker Family History Family History: Hypertension, Malignancy, Other - Family history of cancer Parental Family History Reviewed: Yes Children Family History Reviewed: Yes Sibling(s) Family History Reviewed.: Yes Medication/Allergy Home Medications: Enoxaparin Sodium [Lovenox Inj 120 mg/0.8 ml Disp.syrin] 120 mg SUBCUT Q12 11/10 Ibuprofen [Motrin 800 mg Tablet] 800 mg PO Q8HP PRN MDD filled 11/04 for 20ds Losartan Potassium [Cozaar 50 mg Tablet] 100 mg PO DAILY 11/10/17 Oxycodone HCl/Acetaminophen [Percocet 5-325 mg Tablet] 2 tab PO Q6HP PRN MDD filled 11/04 for 4ds 11/10/17 Allergies/Adverse Reactions: No Known Allergies Allergy (Verified 11/10/17 04:52) Review of Systems Review of Systems: Please see history of present illness and past medical history as wall. Constitutional: No fever or chills reported. Head : No recent chronic headaches, recent head injury. Eyes: No recent eye pain, diplopia, redness, discharge, acute visual changes. Ears: No recent chronic ear pain, acute hearing loss, ear discharge. Oral cavity: No recent ulcerations, bleeding, oral cavity discomfort. Neck: No recent acute neck pain reported. Hematologic: No recent easy bruising or bleeding or hematologic malignancy reported. Lymphatic: No recent lymphatic malignancy, chronic lymphadenopathy reported yet Cardiovascular system review: See history of present illness. Respiratory system review: No recent chronic cough, hemoptysis, blood clots in the lungs reported. Mild Shortness of breath on exertion Gastrointestinal system review: Negative for any recent acute or chronic abdominal pain, hematemesis, melena, recent change in bowel habits. History of acid reflux. Genitourinary system review: No recent acute or chronic hematuria, flank pain, UTI etc. reported. History of menorrhagia and is status post surgery now Skin system review: Negative for any recent abnormal bruising, no rash, no pruritus reported. Neurologic: No prior history of strokes, mini strokes, seizure disorder. Psychologic: No history of major psychosis or major depression reported. Musculoskeletal: Minor aches and pains reported. No acute joint swelling reported. Endocrine: No recent polyuria, polydipsia, recent heat or cold intolerance. Physical Exam Vital Signs: Temp Pulse Resp BP Pulse Ox 98.4 F 69 17 130/72 H 97 11/11/17 10:58 11/11/17 10:58 11/11/17 10:58 11/11/17 10:58 11/11/17 10:58 Intake & Output 11/10/17 11/11/17 11/12/17 06:59 06:59 06:59 Intake Total 418 300 Balance 418 300 Weight 121.563 kg Exam: GENERAL: well-nourished and in no acute distress. Alert and oriented x3 HEAD: Atraumatic, normocephalic. EYES: Pupils equal round and reactive to light, extraocular movements intact, sclera anicteric, conjunctiva are normal. ENT: TMs normal, nares patent, oropharynx clear without exudates. Moist mucous membranes. No oral ulcerations or bleeding gums noted NECK: supple without lymphadenopathy. Trachea is central. No cervical or axillary lymphadenopathy noted. Carotids are 2+, JVD WNL LUNGS: Respiration seems nonlabored, no significant accessory muscle action noted. Breath sounds clear to auscultation bilaterally and equal noted. No wheezes rales or rhonchi noted. No significant dullness noted on percussion. CHEST: Palpation of the chest wall shows no significant chest wall tenderness. No other significant abnormalities noted. HEART: [place] [employer], No PSH, 1/6 WALLY aortic area, 1/6 reynolds systolic murmur mitral area, no rubs, no gallops. ABDOMEN: Soft, no significant tenderness appreciated, normoactive bowel sounds. No guarding, no rebound. No rigidity noted . No masses appreciated. EXTREMITIES: Pedal pulses are 1-2+, no calf tenderness noted. No clubbing or cyanosis.trace to 1+ pedal edema noted NEUROLOGICAL: Focused neurological exam showed no significant neurologic deficit. Normal speech, no focal weakness appreciated. PSYCH: Normal mood, normal affect. Judgment and insight within normal limits. SKIN: No significant ecchymosis, rash, ulcerations or signs of pruritus noted. MUSCULOSKELETAL EXAM: No significant joint swelling noted. Results Laboratory Results: 11/10/17 16:47 11/11/17 02:58 11/10/17 11/11/17 11/11/17 16:47 02:58 02:58 WBC 8.4 RBC 3.39 L Hgb 8.1 L Hct 24.8 L MCV 73 L MCH 23.9 L MCHC 32.7 RDW 16.2 H Plt Count 334 Sodium 142.4 Potassium 4.0 Chloride 108 H Carbon Dioxide 27 Anion Gap 7 BUN 9 Creatinine 0.66 Est GFR ( Amer) > 60 Est GFR (Non-Af Amer) > 60 Glucose 113 H Calcium 9.4 Magnesium Cancelled 1.8 Total Bilirubin 0.7 AST 20 ALT 26 Alkaline Phosphatase 76 Total Protein 6.0 L Albumin 3.1 L 11/11/17 11/11/17 11/11/17 02:58 02:58 08:53 Creatine Kinase 243 H 236 H CK-MB (CK-2) 0.23 Troponin I 0.013 NT-Pro-B Natriuret Pep 231 H 11/11/17 08:53 Creatine Kinase CK-MB (CK-2) 0.32 Troponin I < 0.012 NT-Pro-B Natriuret Pep 307 H EKG Comments: Sinus rhythm, no acute ST-T wave changes noted Impressions: Chest X-Ray 11/09/17 21:53 IMPRESSION: NO ACUTE RADIOGRAPHIC FINDING IN THE CHEST. Chest/Abdomen CTA 11/10/17 00:00 IMPRESSION: 1. No acute pulmonary embolus identified. Suboptimal evaluation of the segmental and subsegmental pulmonary dural branches due to contrast bolus timing and respiratory motion artifact. This exam was performed according to our departmental dose-optimization program, which includes automated exposure control, adjustment of the mA and/or kV according to patient size and/or use of iterative reconstruction technique. Assessment & Plan - Diagnosis (1) Chest pain Qualifiers: Chest pain type: other chest pain Qualified Code(s): R07.89 - Other chest pain; R07.8 - Other chest pain Is this a current diagnosis for this admission?: Yes (2) Anemia Qualifiers: Anemia type: iron deficiency Iron deficiency anemia type: chronic blood loss Qualified Code(s): D50.0 - Iron deficiency anemia secondary to blood loss (chronic) Is this a current diagnosis for this admission?: Yes (3) Obesity Qualifiers: Obesity type: unspecified obesity type Obesity classification: unspecified obesity classification Serious obesity comorbidity presence: unspecified whether serious comorbidity present Qualified Code(s): E66.9 - Obesity, unspecified Is this a current diagnosis for this admission?: Yes (4) Gastroesophageal reflux disease Qualifiers: Esophagitis presence: esophagitis presence not specified Qualified Code(s) : K21.9 - Gastro-esophageal reflux disease without esophagitis Is this a current diagnosis for this admission?: Yes - Notes Notes: Chest pain: This is felt to be possibly noncardiac and related to gastroesophageal reflux. Pulmonary embolism was in the differential diagnosis and has been ruled out by a CTA to a reasonable degree. At this point recommend double dose proton pump inhibitor. Will review previous cardiac evaluations. Gastroesophageal reflux disease: Start double dose proton pump inhibitor. Patient will benefit from aggressive weight loss. Patient will also benefit from evaluation of sleep apnea syndrome if this has not been performed in the past. Anemia: Agree with hematology oncology consult and correction of anemia as deemed necessary. Obesity: Patient will benefit from weight loss. This was explained. - Time Time Spent: 30 to 50 Minutes - CODE STATUS was discussed, patient remains full code. Surrogate decision-maker unchanged. Multiple medical problems were addressed. More than 50% of the time spent coordinating care, discussing management plans with involved caregivers. Management plans discussed with involved personnels. Medical decision making was of moderate to high complexity , patient's has multiple comorbidities. Medications reviewed and adjusted accordingly: Yes
[2017-11-11] MEDS ORDERED: GLUCAGON,HUMAN RECOMB 1 MG INJ IM PRN (13:57)
[2017-11-11] MEDS ORDERED: INSULIN LISPRO 100 UNIT/ML 3 ML VIAL SUBCUT PRN (13:57)
[2017-11-11] MEDS ORDERED: DEXTROSE 50%-WATER 25 GM/50 ML DISP.SYRIN IV PRN ×2 (13:57)
[2017-11-11] MEDS ORDERED: DEXTROSE 40% GEL 15 GM TUBE PO PRN ×2 (13:57)
--- NOTE | 2017-11-11 13:57 | PDOC PROGRESS REPORT ---
Subjective Progress Note for:: 11/11/17 Subjective:: Patient was transferred to Dr Argueta service due to GUARD DRIVER service uncomfortable with further management in view of concern regarding bigamy on telemetry and EKG. Patient reported episode of chest pain and fluttering of her heart after walking exercise. She reported similar episode after bowel movement. She described pain as a blow to left side of her chest. She claimed associated difficulty with breathing that resolved after resting for awhile. She denied similar episodes in the past. She admitted to issues of acid reflux, There is history of MJ and she has been without her CPAP machine for awhile. She reported that she was cleared cardiac reese for SHERON with BSO surgery about 1 week ago. Reason For Visit: MORBID OBESITY, DM, HTN, POSTOP FROM HYSTERECTOMY Physical Exam Vital Signs: Temp Pulse Resp BP Pulse Ox 98.4 F 69 17 130/72 H 97 11/11/17 10:58 11/11/17 10:58 11/11/17 10:58 11/11/17 10:58 11/11/17 10:58 Intake & Output 11/10/17 11/11/17 11/12/17 06:59 06:59 06:59 Intake Total 418 300 Balance 418 300 Weight 121.563 kg General appearance: PRESENT: morbidly obese Head exam: PRESENT: atraumatic, normocephalic Mouth exam: PRESENT: moist Respiratory exam: PRESENT: clear to auscultation caden Cardiovascular exam: PRESENT: RRR. ABSENT: diastolic murmur, rubs, systolic murmur Vascular exam: PRESENT: normal capillary refill. ABSENT: pallor GI/Abdominal exam: PRESENT: normal bowel sounds, soft. ABSENT: distended, guarding, mass, organolmegaly, rebound, tenderness Extremities exam: ABSENT: pedal edema Musculoskeletal exam: PRESENT: normal inspection Neurological exam: PRESENT: alert, awake, oriented to person, oriented to place , oriented to time, oriented to situation, CN II-XII grossly intact. ABSENT: motor sensory deficit Psychiatric exam: PRESENT: appropriate affect, normal mood. ABSENT: homicidal ideation, suicidal ideation Skin exam: PRESENT: dry, warm, other - operative site healing satisfactorily Results Laboratory Results: 11/10/17 16:47 11/11/17 02:58 11/10/17 11/11/17 11/11/17 16:47 02:58 02:58 WBC 8.4 RBC 3.39 L Hgb 8.1 L Hct 24.8 L MCV 73 L MCH 23.9 L MCHC 32.7 RDW 16.2 H Plt Count 334 Sodium 142.4 Potassium 4.0 Chloride 108 H Carbon Dioxide 27 Anion Gap 7 BUN 9 Creatinine 0.66 Est GFR ( Amer) > 60 Est GFR (Non-Af Amer) > 60 Glucose 113 H Calcium 9.4 Magnesium Cancelled 1.8 Total Bilirubin 0.7 AST 20 ALT 26 Alkaline Phosphatase 76 Total Protein 6.0 L Albumin 3.1 L 11/11/17 11/11/17 11/11/17 02:58 02:58 08:53 Creatine Kinase 243 H 236 H CK-MB (CK-2) 0.23 Troponin I 0.013 NT-Pro-B Natriuret Pep 231 H 11/11/17 08:53 Creatine Kinase CK-MB (CK-2) 0.32 Troponin I < 0.012 NT-Pro-B Natriuret Pep 307 H Impressions: Chest X-Ray 11/09/17 21:53 IMPRESSION: NO ACUTE RADIOGRAPHIC FINDING IN THE CHEST. Chest/Abdomen CTA 11/10/17 00:00 IMPRESSION: 1. No acute pulmonary embolus identified. Suboptimal evaluation of the segmental and subsegmental pulmonary dural branches due to contrast bolus timing and respiratory motion artifact. This exam was performed according to our departmental dose-optimization program, which includes automated exposure control, adjustment of the mA and/or kV according to patient size and/or use of iterative reconstruction technique. Assessment & Plan - Diagnosis (1) Chest pain Qualifiers: Chest pain type: other chest pain Qualified Code(s): R07.89 - Other chest pain; R07.8 - Other chest pain Is this a current diagnosis for this admission?: Yes Plan: May be due to reflux process but in view of her initial elevated total CK and Troponin I we will rule out for ACS. Also, this may be due to cardia leakage from associated symptomatic arrhythmia. (2) Gastroesophageal reflux disease Qualifiers: Esophagitis presence: esophagitis presence not specified Qualified Code(s) : K21.9 - Gastro-esophageal reflux disease without esophagitis Is this a current diagnosis for this admission?: Yes Plan: May be related to her morbid obesity and MJ. She will benefit from PPI therapy , lifestyle and postural changes (3) MJ on CPAP Is this a current diagnosis for this admission?: Yes Plan: We will institute use of CPAP machine. Patient does not know much about her pressure settings and will not be able to bring her machine for use while in the hospital. (4) Morbid obesity due to excess calories Is this a current diagnosis for this admission?: Yes Plan: She will benefit from caloric restriction and nutritional counseling as well as exercise program for weight management. (5) Diabetes mellitus type 2 in obese Is this a current diagnosis for this admission?: Yes Plan: See covering attending physician orders. (6) HTN (hypertension) Qualifiers: Hypertension type: essential hypertension Qualified Code(s): I10 - Essential (primary) hypertension Is this a current diagnosis for this admission?: Yes Plan: See covering attending physician orders. - Time Time Spent with patient: 35 or more minutes Medications reviewed and adjusted accordingly: Yes Anticipated discharge: Home Within: Other - Inpatient Certification Based on my medical assessment, after consideration of the patient's comorbidities, presenting symptoms, or acuity I expect that the services needed warrant INPATIENT care.: Yes I certify that my determination is in accordance with my understanding of Medicare's requirements for reasonable and necessary INPATIENT services [42 CFR 412.3e].: Yes Medical Necessity: Need Close Monitoring Due to Risk of Patient Decompensation, Need For Continuous Telemetry Monitoring, Risk of Complication if Not Cared For in Hospital Post Hospital Care: D/C Blocker Polishing Documentation - Plan Summary Plan Summary: Rule out for ACS with serial cardiac enzymes. Cardiology input appreciated. Start on CPAP machine usage for MJ management.
[2017-11-11] MEDS ORDERED: NORMAL SALINE 1000 ML 1,000 ML IV PRN (14:01)
[2017-11-11 18:33] LABS: ABSOLUTE BASOPHILS # (AUTO) 0.1 10^3/uL (0.0-0.2); ABSOLUTE EOSINOPHILS # (AUTO) 0.4 10^3/uL (0.0-0.6); ABSOLUTE MONOCYTES (AUTO) 0.7 10^3/uL (0.1-1.4); BASOPHILS % (AUTO) 0.8 % (0-2); EOSINOPHILS % (AUTO) 3.3 % (0-6); HEMATOCRIT 29.3 % (36.0-47.0); HEMOGLOBIN 9.6 g/dL (12.0-15.5); LYMPHOCYTES % (AUTO) 17.6 % (13-45); MEAN CORPUSCULAR HEMOGLOBIN 23.9 pg (27.0-33.4); MEAN CORPUSCULAR HGB CONC 32.8 g/dL (32.0-36.0); MEAN CORPUSCULAR VOLUME 73 fl (80-97); PLATELET COUNT 293 10^3/uL (150-450); RED BLOOD COUNT 4.01 10^6/uL (3.72-5.28); SEGMENTED NEUTROPHILS % (AUTO) 72.3 % (42-78); TOTAL CELLS COUNTED % (AUTO) 100 %; WHITE BLOOD COUNT 11.1 10^3/uL (4.0-10.5)
[2017-11-11 20:59] LABS: CREATINE KINASE MB 0.29 ng/mL (<4.55); TROPONIN I 0.014 ng/mL
[2017-11-11] MEDS ORDERED: ENOXAPARIN SODIUM INJ 120 MG/0.8 ML DISP.SYRIN SUBCUT SCH (22:00)
[2017-11-12] MEDS: OXYCODONE-ACETAMINOPHEN 5-325 MG TABLET PO PRN (04:08)
[2017-11-12 04:50] LABS: ANION GAP 8 (5-19); BLOOD UREA NITROGEN 9 mg/dL (7-20); CALCIUM 9.2 mg/dL (8.4-10.2); CARBON DIOXIDE 27 mmol/L (22-30); CHLORIDE 107 mmol/L (98-107); CHOLESTEROL 166.08 mg/dL (0-200); GLUCOSE 97 mg/dL (75-110); SODIUM 141.6 mmol/L (137-145); TRIGLYCERIDES 122 mg/dL (<150)
[2017-11-12 05:01] LABS: DIRECT LDL 111 mg/dL (<100)
[2017-11-12] MEDS: LANSOPRAZOLE 30 MG TAB.RAP.DR PO SCH ×2 (05:21→17:12)
[2017-11-12 05:53] LABS: ABSOLUTE BASOPHILS # (AUTO) 0.1 10^3/uL (0.0-0.2); ABSOLUTE EOSINOPHILS # (AUTO) 0.3 10^3/uL (0.0-0.6); ABSOLUTE LYMPHOCYTES (AUTO) 2.3 10^3/uL (0.5-4.7); ABSOLUTE MONOCYTES (AUTO) 0.9 10^3/uL (0.1-1.4); ABSOLUTE NEUT (AUTO) 6.7 10^3/uL (1.7-8.2); BASOPHILS % (AUTO) 1.3 % (0-2); EOSINOPHILS % (AUTO) 2.9 % (0-6); HEMATOCRIT 28.6 % (36.0-47.0); HEMOGLOBIN 9.4 g/dL (12.0-15.5); LYMPHOCYTES % (AUTO) 22.2 % (13-45); MEAN CORPUSCULAR HEMOGLOBIN 24.8 pg (27.0-33.4); MEAN CORPUSCULAR HGB CONC 32.9 g/dL (32.0-36.0); MEAN CORPUSCULAR VOLUME 75 fl (80-97); MONOCYTES % (AUTO) 8.5 % (3-13); PLATELET COUNT 355 10^3/uL (150-450); SEGMENTED NEUTROPHILS % (AUTO) 65.1 % (42-78); TOTAL CELLS COUNTED % (AUTO) 100 %; WHITE BLOOD COUNT 10.3 10^3/uL (4.0-10.5)
[2017-11-12 06:23] LABS: CREATINE KINASE MB < 0.22 ng/mL (<4.55); TROPONIN I < 0.012 ng/mL
[2017-11-12] MEDS: ENOXAPARIN SODIUM INJ 40 MG/0.4 ML DISP.SYRIN SUBCUT SCH (09:25)
[2017-11-12] MEDS: FUROSEMIDE 20 MG TABLET PO SCH (09:25)
--- NOTE | 2017-11-12 10:56 | PDOC PROGRESS REPORT ---
Subjective Progress Note for:: 11/12/17 Subjective:: No acute events overnight, patient walked the nguyen yesterday and did well after another unit of blood, she feels pretty good this morning. She really is not passing much blood per vagina at present. Reason For Visit: MORBID OBESITY, DM, HTN, POSTOP FROM HYSTERECTOMY Physical Exam Vital Signs: Temp Pulse Resp BP Pulse Ox 97.5 F 64 19 145/68 H 96 11/12/17 07:12 11/12/17 07:12 11/12/17 07:12 11/12/17 07:12 11/12/17 07:12 Intake & Output 11/11/17 11/12/17 11/13/17 06:59 06:59 06:59 Intake Total 418 1240 Output Total 1000 Balance 418 240 Weight 121.563 kg 121.563 kg General appearance: PRESENT: no acute distress, well-developed, well-nourished Head exam: PRESENT: atraumatic, normocephalic Eye exam: PRESENT: conjunctiva pink, EOMI, PERRLA. ABSENT: scleral icterus Ear exam: PRESENT: normal external ear exam Mouth exam: PRESENT: moist, tongue midline Neck exam: ABSENT: carotid bruit, JVD, lymphadenopathy, thyromegaly Respiratory exam: PRESENT: clear to auscultation caden. ABSENT: rales, rhonchi, wheezes Cardiovascular exam: PRESENT: RRR. ABSENT: diastolic murmur, rubs, systolic murmur Pulses: PRESENT: normal dorsalis pedis pul Vascular exam: PRESENT: normal capillary refill GI/Abdominal exam: PRESENT: normal bowel sounds, soft. ABSENT: distended, guarding, mass, organolmegaly, rebound, tenderness Rectal exam: PRESENT: deferred Extremities exam: PRESENT: full ROM. ABSENT: calf tenderness, clubbing, pedal edema Neurological exam: PRESENT: alert, awake, oriented to person, oriented to place , oriented to time, oriented to situation, CN II-XII grossly intact. ABSENT: motor sensory deficit Psychiatric exam: PRESENT: appropriate affect, normal mood. ABSENT: homicidal ideation, suicidal ideation Skin exam: PRESENT: dry, intact, warm. ABSENT: cyanosis, rash Results Laboratory Results: 11/12/17 05:23 11/12/17 04:05 11/11/17 11/12/17 11/12/17 17:55 04:05 04:05 WBC 11.1 H Cancelled RBC 4.01 Cancelled Hgb 9.6 L Cancelled Hct 29.3 L Cancelled MCV 73 L Cancelled MCH 23.9 L Cancelled MCHC 32.8 Cancelled RDW 18.0 H Cancelled Plt Count 293 Cancelled Seg Neutrophils % 72.3 Cancelled Lymphocytes % 17.6 Cancelled Monocytes % 6.0 Cancelled Eosinophils % 3.3 Cancelled Basophils % 0.8 Cancelled Absolute Neutrophils 8.0 Cancelled Absolute Lymphocytes 2.0 Cancelled Absolute Monocytes 0.7 Cancelled Absolute Eosinophils 0.4 Cancelled Absolute Basophils 0.1 Cancelled Sodium 141.6 Potassium 4.0 Chloride 107 Carbon Dioxide 27 Anion Gap 8 BUN 9 Creatinine 0.63 Est GFR ( Amer) > 60 Est GFR (Non-Af Amer) > 60 Glucose 97 Calcium 9.2 Triglycerides 122 Cholesterol 166.08 LDL Cholesterol Direct 111 H VLDL Cholesterol 24.0 HDL Cholesterol 31 L 11/12/17 05:23 WBC 10.3 RBC 3.80 Hgb 9.4 L Hct 28.6 L MCV 75 L MCH 24.8 L MCHC 32.9 RDW 18.0 H Plt Count 355 Seg Neutrophils % 65.1 Lymphocytes % 22.2 Monocytes % 8.5 Eosinophils % 2.9 Basophils % 1.3 Absolute Neutrophils 6.7 Absolute Lymphocytes 2.3 Absolute Monocytes 0.9 Absolute Eosinophils 0.3 Absolute Basophils 0.1 Sodium Potassium Chloride Carbon Dioxide Anion Gap BUN Creatinine Est GFR ( Amer) Est GFR (Non-Af Amer) Glucose Calcium Triglycerides Cholesterol LDL Cholesterol Direct VLDL Cholesterol HDL Cholesterol 11/11/17 11/11/17 11/11/17 02:58 02:58 08:53 Creatine Kinase 243 H 236 H CK-MB (CK-2) 0.23 Troponin I 0.013 NT-Pro-B Natriuret Pep 231 H 11/11/17 11/11/17 11/11/17 08:53 20:25 20:25 Creatine Kinase 165 H CK-MB (CK-2) 0.32 0.29 Troponin I < 0.012 0.014 NT-Pro-B Natriuret Pep 307 H 11/12/17 11/12/17 11/12/17 04:05 04:05 05:23 Creatine Kinase Cancelled CK-MB (CK-2) Cancelled < 0.22 Troponin I Cancelled < 0.012 NT-Pro-B Natriuret Pep 11/12/17 05:23 Creatine Kinase 123 CK-MB (CK-2) Troponin I NT-Pro-B Natriuret Pep Impressions: Chest X-Ray 11/09/17 21:53 IMPRESSION: NO ACUTE RADIOGRAPHIC FINDING IN THE CHEST. Chest/Abdomen CTA 11/10/17 00:00 IMPRESSION: 1. No acute pulmonary embolus identified. Suboptimal evaluation of the segmental and subsegmental pulmonary dural branches due to contrast bolus timing and respiratory motion artifact. This exam was performed according to our departmental dose-optimization program, which includes automated exposure control, adjustment of the mA and/or kV according to patient size and/or use of iterative reconstruction technique. Assessment & Plan - Diagnosis (1) Anemia Qualifiers: Anemia type: iron deficiency Iron deficiency anemia type: chronic blood loss Qualified Code(s): D50.0 - Iron deficiency anemia secondary to blood loss (chronic) Is this a current diagnosis for this admission?: Yes Plan: Greatly improved, hemoglobin stable over 24 hours, patient should be able to discharge home today with follow-up in our office. (2) Other pulmonary embolism without acute cor pulmonale Qualifiers: Chronicity: chronic Qualified Code(s): I27.82 - Chronic pulmonary embolism Is this a current diagnosis for this admission?: Yes Plan: No further anticoagulation planned
--- NOTE | 2017-11-12 12:00 | PDOC PROGRESS REPORT ---
Subjective Progress Note for:: 11/12/17 Subjective:: Patient seems to be doing better with significant improvement. Patient had received blood transfusion last night. Pt is denying any chest arm or neck discomfort. Patient denying any PND, orthopnea. Patient denied any sustained palpitations, dizziness, syncope, near syncope. Patient denying any fever chills. Patient denying any other significant discomfort. Patient is maintaining sinus rhythm. Occasional VPCs noted but no sustained tachycardia or bradycardia arrhythmias noted. Review of systems: Rest review of systems negative. Medications: Medications have been reviewed. Reason For Visit: MORBID OBESITY, DM, HTN, POSTOP FROM HYSTERECTOMY Physical Exam Vital Signs: Temp Pulse Resp BP Pulse Ox 97.5 F 64 19 145/68 H 96 11/12/17 07:12 11/12/17 07:12 11/12/17 07:12 11/12/17 07:12 11/12/17 07:12 Intake & Output 11/11/17 11/12/17 11/13/17 06:59 06:59 06:59 Intake Total 418 1240 Output Total 1000 Balance 418 240 Weight 121.563 kg 121.563 kg Exam: GENERAL: well-nourished and in no acute distress. Alert and oriented x3 HEAD: Atraumatic, normocephalic. EYES: Pupils equal round and reactive to light, extraocular movements intact, sclera anicteric, conjunctiva are normal. ENT: TMs normal, nares patent, oropharynx clear without exudates. Moist mucous membranes. No oral ulcerations or bleeding gums noted NECK: supple without lymphadenopathy. Trachea is central. No cervical or axillary lymphadenopathy noted. Carotids are 2+, JVD WNL LUNGS: Respiration seems nonlabored, no significant accessory muscle action noted. Breath sounds clear to auscultation bilaterally and equal noted. No wheezes rales or rhonchi noted. No significant dullness noted on percussion. CHEST: Palpation of the chest wall shows no significant chest wall tenderness. No other significant abnormalities noted. HEART: [facility] [employer] SPECIALIST, No PSH, 1/6 WALLY aortic area, 1/6 reynolds systolic murmur mitral area, no rubs, no gallops. ABDOMEN: Soft, no significant tenderness appreciated, normoactive bowel sounds. No guarding, no rebound. No rigidity noted . No masses appreciated. EXTREMITIES: Pedal pulses are 1-2+, no calf tenderness noted. No clubbing or cyanosis.trace to 1+ pedal edema noted NEUROLOGICAL: Focused neurological exam showed no significant neurologic deficit. Normal speech, no focal weakness appreciated. PSYCH: Normal mood, normal affect. Judgment and insight within normal limits. SKIN: No significant ecchymosis, rash, ulcerations or signs of pruritus noted. MUSCULOSKELETAL EXAM: No significant joint swelling noted. Results Laboratory Results: 11/12/17 05:23 11/12/17 04:05 11/11/17 11/12/17 11/12/17 17:55 04:05 04:05 WBC 11.1 H Cancelled RBC 4.01 Cancelled Hgb 9.6 L Cancelled Hct 29.3 L Cancelled MCV 73 L Cancelled MCH 23.9 L Cancelled MCHC 32.8 Cancelled RDW 18.0 H Cancelled Plt Count 293 Cancelled Seg Neutrophils % 72.3 Cancelled Lymphocytes % 17.6 Cancelled Monocytes % 6.0 Cancelled Eosinophils % 3.3 Cancelled Basophils % 0.8 Cancelled Absolute Neutrophils 8.0 Cancelled Absolute Lymphocytes 2.0 Cancelled Absolute Monocytes 0.7 Cancelled Absolute Eosinophils 0.4 Cancelled Absolute Basophils 0.1 Cancelled Sodium 141.6 Potassium 4.0 Chloride 107 Carbon Dioxide 27 Anion Gap 8 BUN 9 Creatinine 0.63 Est GFR ( Amer) > 60 Est GFR (Non-Af Amer) > 60 Glucose 97 Calcium 9.2 Triglycerides 122 Cholesterol 166.08 LDL Cholesterol Direct 111 H VLDL Cholesterol 24.0 HDL Cholesterol 31 L 11/12/17 05:23 WBC 10.3 RBC 3.80 Hgb 9.4 L Hct 28.6 L MCV 75 L MCH 24.8 L MCHC 32.9 RDW 18.0 H Plt Count 355 Seg Neutrophils % 65.1 Lymphocytes % 22.2 Monocytes % 8.5 Eosinophils % 2.9 Basophils % 1.3 Absolute Neutrophils 6.7 Absolute Lymphocytes 2.3 Absolute Monocytes 0.9 Absolute Eosinophils 0.3 Absolute Basophils 0.1 Sodium Potassium Chloride Carbon Dioxide Anion Gap BUN Creatinine Est GFR ( Amer) Est GFR (Non-Af Amer) Glucose Calcium Triglycerides Cholesterol LDL Cholesterol Direct VLDL Cholesterol HDL Cholesterol 11/11/17 11/11/17 11/11/17 02:58 02:58 08:53 Creatine Kinase 243 H 236 H CK-MB (CK-2) 0.23 Troponin I 0.013 NT-Pro-B Natriuret Pep 231 H 11/11/17 11/11/17 11/11/17 08:53 20:25 20:25 Creatine Kinase 165 H CK-MB (CK-2) 0.32 0.29 Troponin I < 0.012 0.014 NT-Pro-B Natriuret Pep 307 H 11/12/17 11/12/17 11/12/17 04:05 04:05 05:23 Creatine Kinase Cancelled CK-MB (CK-2) Cancelled < 0.22 Troponin I Cancelled < 0.012 NT-Pro-B Natriuret Pep 11/12/17 05:23 Creatine Kinase 123 CK-MB (CK-2) Troponin I NT-Pro-B Natriuret Pep EKG Comments: Sinus rhythm without any sustained tacky or bradycardia arrhythmias. Impressions: Chest X-Ray 11/09/17 21:53 IMPRESSION: NO ACUTE RADIOGRAPHIC FINDING IN THE CHEST. Chest/Abdomen CTA 11/10/17 00:00 IMPRESSION: 1. No acute pulmonary embolus identified. Suboptimal evaluation of the segmental and subsegmental pulmonary dural branches due to contrast bolus timing and respiratory motion artifact. This exam was performed according to our departmental dose-optimization program, which includes automated exposure control, adjustment of the mA and/or kV according to patient size and/or use of iterative reconstruction technique. Assessment & Plan - Diagnosis (1) Chest pain Qualifiers: Chest pain type: other chest pain Qualified Code(s): R07.89 - Other chest pain; R07.8 - Other chest pain Is this a current diagnosis for this admission?: Yes (2) Anemia Qualifiers: Anemia type: iron deficiency Iron deficiency anemia type: chronic blood loss Qualified Code(s): D50.0 - Iron deficiency anemia secondary to blood loss (chronic) Is this a current diagnosis for this admission?: Yes (3) Obesity Qualifiers: Obesity type: unspecified obesity type Obesity classification: unspecified obesity classification Serious obesity comorbidity presence: unspecified whether serious comorbidity present Qualified Code(s): E66.9 - Obesity, unspecified Is this a current diagnosis for this admission?: Yes (4) Gastroesophageal reflux disease Qualifiers: Esophagitis presence: esophagitis presence not specified Qualified Code(s) : K21.9 - Gastro-esophageal reflux disease without esophagitis Is this a current diagnosis for this admission?: Yes - Notes Notes: Chest pain: This is felt to be possibly noncardiac and related to gastroesophageal reflux. Pulmonary embolism was in the differential diagnosis and has been ruled out by a CTA to a reasonable degree. At this point recommend double dose proton pump inhibitor. Patient stable without any recurrence. Feel that any further evaluation can be completed as an outpatient. Gastroesophageal reflux disease: Continue double dose proton pump inhibitor. Patient will benefit from aggressive weight loss. Patient will also benefit from evaluation of sleep apnea syndrome if this has not been performed in the past. Anemia: Patient being followed by hematology oncology and had received blood transfusion. Baseline hemoglobin has improved. Obesity: Patient will benefit from weight loss. This was explained. - Time Time with patient: 15-25 minutes - CODE STATUS was discussed, patient remains full code. Surrogate decision-maker unchanged. Multiple medical problems were addressed. More than 50% of the time spent coordinating care, discussing management plans with involved caregivers. Management plans discussed with involved personnels. Medical decision making was of moderate to high complexity , patient's has multiple comorbidities. Medications reviewed and adjusted accordingly: Yes
--- NOTE | 2017-11-12 12:44 | PDOC PROGRESS REPORT ---
Subjective Progress Note for:: 11/12/17 Subjective:: Patient reported feeling much better this morning. No recurrent fluttering feeling in her chest. She denied chest pain or difficulty with breathing. Post blood transfusion total 2 units PRBC. Reason For Visit: MORBID OBESITY, DM, HTN, POSTOP FROM HYSTERECTOMY Physical Exam Vital Signs: Temp Pulse Resp BP Pulse Ox 97.8 F 75 19 147/83 H 96 11/12/17 11:00 11/12/17 11:00 11/12/17 11:00 11/12/17 11:00 11/12/17 11:00 Intake & Output 11/11/17 11/12/17 11/13/17 06:59 06:59 06:59 Intake Total 418 1240 Output Total 1000 Balance 418 240 Weight 121.563 kg 121.563 kg Physical Exam: General appearance: PRESENT: morbidly obese Head exam: PRESENT: atraumatic, normocephalic Mouth exam: PRESENT: moist Respiratory exam: PRESENT: clear to auscultation caden Cardiovascular exam: PRESENT: RRR. ABSENT: diastolic murmur, rubs, systolic murmur Vascular exam: PRESENT: normal capillary refill. ABSENT: pallor GI/Abdominal exam: PRESENT: normal bowel sounds, soft. ABSENT: distended, guarding, mass, organomegaly, rebound, tenderness Extremities exam: ABSENT: pedal edema Musculoskeletal exam: PRESENT: normal inspection Neurological exam: PRESENT: alert, awake, oriented to person, oriented to place , oriented to time, oriented to situation, CN II-XII grossly intact. ABSENT: motor sensory deficit Psychiatric exam: PRESENT: appropriate affect, normal mood. ABSENT: homicidal ideation, suicidal ideation Skin exam: PRESENT: dry, warm, other - operative site healing satisfactorily Results Laboratory Results: 11/12/17 05:23 11/12/17 04:05 11/11/17 11/12/17 11/12/17 17:55 04:05 04:05 WBC 11.1 H Cancelled RBC 4.01 Cancelled Hgb 9.6 L Cancelled Hct 29.3 L Cancelled MCV 73 L Cancelled MCH 23.9 L Cancelled MCHC 32.8 Cancelled RDW 18.0 H Cancelled Plt Count 293 Cancelled Seg Neutrophils % 72.3 Cancelled Lymphocytes % 17.6 Cancelled Monocytes % 6.0 Cancelled Eosinophils % 3.3 Cancelled Basophils % 0.8 Cancelled Absolute Neutrophils 8.0 Cancelled Absolute Lymphocytes 2.0 Cancelled Absolute Monocytes 0.7 Cancelled Absolute Eosinophils 0.4 Cancelled Absolute Basophils 0.1 Cancelled Sodium 141.6 Potassium 4.0 Chloride 107 Carbon Dioxide 27 Anion Gap 8 BUN 9 Creatinine 0.63 Est GFR ( Amer) > 60 Est GFR (Non-Af Amer) > 60 Glucose 97 Calcium 9.2 Triglycerides 122 Cholesterol 166.08 LDL Cholesterol Direct 111 H VLDL Cholesterol 24.0 HDL Cholesterol 31 L 11/12/17 05:23 WBC 10.3 RBC 3.80 Hgb 9.4 L Hct 28.6 L MCV 75 L MCH 24.8 L MCHC 32.9 RDW 18.0 H Plt Count 355 Seg Neutrophils % 65.1 Lymphocytes % 22.2 Monocytes % 8.5 Eosinophils % 2.9 Basophils % 1.3 Absolute Neutrophils 6.7 Absolute Lymphocytes 2.3 Absolute Monocytes 0.9 Absolute Eosinophils 0.3 Absolute Basophils 0.1 Sodium Potassium Chloride Carbon Dioxide Anion Gap BUN Creatinine Est GFR ( Amer) Est GFR (Non-Af Amer) Glucose Calcium Triglycerides Cholesterol LDL Cholesterol Direct VLDL Cholesterol HDL Cholesterol 11/11/17 11/11/17 11/11/17 02:58 02:58 08:53 Creatine Kinase 243 H 236 H CK-MB (CK-2) 0.23 Troponin I 0.013 NT-Pro-B Natriuret Pep 231 H 11/11/17 11/11/17 11/11/17 08:53 20:25 20:25 Creatine Kinase 165 H CK-MB (CK-2) 0.32 0.29 Troponin I < 0.012 0.014 NT-Pro-B Natriuret Pep 307 H 11/12/17 11/12/17 11/12/17 04:05 04:05 05:23 Creatine Kinase Cancelled CK-MB (CK-2) Cancelled < 0.22 Troponin I Cancelled < 0.012 NT-Pro-B Natriuret Pep 11/12/17 05:23 Creatine Kinase 123 CK-MB (CK-2) Troponin I NT-Pro-B Natriuret Pep Impressions: Chest X-Ray 11/09/17 21:53 IMPRESSION: NO ACUTE RADIOGRAPHIC FINDING IN THE CHEST. Chest/Abdomen CTA 11/10/17 00:00 IMPRESSION: 1. No acute pulmonary embolus identified. Suboptimal evaluation of the segmental and subsegmental pulmonary dural branches due to contrast bolus timing and respiratory motion artifact. This exam was performed according to our departmental dose-optimization program, which includes automated exposure control, adjustment of the mA and/or kV according to patient size and/or use of iterative reconstruction technique. Assessment & Plan - Diagnosis (1) Chest pain Qualifiers: Chest pain type: other chest pain Qualified Code(s): R07.89 - Other chest pain; R07.8 - Other chest pain Is this a current diagnosis for this admission?: Yes Plan: Resolved. Less likely cardiac in origin. Remain on PPI therapy. (2) Gastroesophageal reflux disease Qualifiers: Esophagitis presence: esophagitis presence not specified Qualified Code(s) : K21.9 - Gastro-esophageal reflux disease without esophagitis Is this a current diagnosis for this admission?: Yes Plan: Continue PPI therapy. I discussed compliance with lifestyle and dietary modification to aide GERD management. (3) MJ on CPAP Is this a current diagnosis for this admission?: Yes Plan: Continue current management. (4) Morbid obesity due to excess calories Is this a current diagnosis for this admission?: Yes Plan: Continue current management. (5) Diabetes mellitus type 2 in obese Is this a current diagnosis for this admission?: Yes Plan: Continue current management. (6) HTN (hypertension) Qualifiers: Hypertension type: essential hypertension Qualified Code(s): I10 - Essential (primary) hypertension Is this a current diagnosis for this admission?: Yes Plan: Continue current management. - Time Time Spent with patient: 25-34 minutes Medications reviewed and adjusted accordingly: Yes Anticipated discharge: Home Within: Other - Inpatient Certification Based on my medical assessment, after consideration of the patient's comorbidities, presenting symptoms, or acuity I expect that the services needed warrant INPATIENT care.: Yes I certify that my determination is in accordance with my understanding of Medicare's requirements for reasonable and necessary INPATIENT services [42 CFR 412.3e].: Yes Medical Necessity: Need Close Monitoring Due to Risk of Patient Decompensation, Need For IV Fluids, Need For Continuous Telemetry Monitoring, Risk of Complication if Not Cared For in Hospital Post Hospital Care: D/C Manager Fine Documentation - Plan Summary Plan Summary: Continue current management. Repeat CBC in AM. See covering attending physician orders.
--- NOTE | 2017-11-12 12:48 | EKG REPORT ---
SEVERITY:- ABNORMAL ECG - SINUS RHYTHM FIRST DEGREE AV BLOCK : Confirmed by: Micheline Berger MD 12-Nov-2017 12:47:40
--- NOTE | 2017-11-12 12:48 | EKG REPORT ---
SEVERITY:- ABNORMAL ECG - SINUS RHYTHM VENTRICULAR BIGEMINY : Confirmed by: Micheline Berger MD 12-Nov-2017 12:47:45
--- NOTE | 2017-11-12 12:48 | EKG REPORT ---
SEVERITY:- ABNORMAL ECG - SINUS RHYTHM FIRST DEGREE AV BLOCK BORDERLINE T WAVE ABNORMALITIES : Confirmed by: Micheline Berger MD 12-Nov-2017 12:47:50
[2017-11-12] MEDS: LOSARTAN POTASSIUM 50 MG TABLET PO SCH (17:13)
[2017-11-13] MEDS: OXYCODONE-ACETAMINOPHEN 5-325 MG TABLET PO PRN (00:33)
[2017-11-13] MEDS: LANSOPRAZOLE 30 MG TAB.RAP.DR PO SCH (05:22)
[2017-11-13 06:02] LABS: ABSOLUTE BASOPHILS # (AUTO) 0.1 10^3/uL (0.0-0.2); ABSOLUTE EOSINOPHILS # (AUTO) 0.3 10^3/uL (0.0-0.6); ABSOLUTE LYMPHOCYTES (AUTO) 2.1 10^3/uL (0.5-4.7); ABSOLUTE MONOCYTES (AUTO) 0.8 10^3/uL (0.1-1.4); EOSINOPHILS % (AUTO) 2.2 % (0-6); HEMATOCRIT 27.4 % (36.0-47.0); HEMOGLOBIN 8.8 g/dL (12.0-15.5); LYMPHOCYTES % (AUTO) 18.6 % (13-45); MEAN CORPUSCULAR HEMOGLOBIN 23.9 pg (27.0-33.4); MEAN CORPUSCULAR HGB CONC 32.1 g/dL (32.0-36.0); MEAN CORPUSCULAR VOLUME 74 fl (80-97); MONOCYTES % (AUTO) 6.9 % (3-13); PLATELET COUNT 361 10^3/uL (150-450); RED BLOOD COUNT 3.68 10^6/uL (3.72-5.28); RED CELL DISTRIBUTION WIDTH 18.4 % (11.5-14.0); SEGMENTED NEUTROPHILS % (AUTO) 71.3 % (42-78); TOTAL CELLS COUNTED % (AUTO) 100 %; WHITE BLOOD COUNT 11.3 10^3/uL (4.0-10.5)
[2017-11-13] MEDS: FUROSEMIDE 20 MG TABLET PO SCH (09:20)
[2017-11-13] MEDS: ENOXAPARIN SODIUM INJ 40 MG/0.4 ML DISP.SYRIN SUBCUT SCH (09:21)
--- NOTE | 2017-11-13 14:14 | PDOC DISCHARGE SUMMARY ---
General - Admit/Disc Date/PCP Admission Date/Primary Care Provider: 11/10/17 04:15 CARRIE HERNANDEZ MD Discharge Date: 11/13/17 - Discharge Diagnosis (1) Chest pain Is this a current diagnosis for this admission?: Yes (2) Gastroesophageal reflux disease Is this a current diagnosis for this admission?: Yes (3) MJ on CPAP Is this a current diagnosis for this admission?: Yes (4) Morbid obesity due to excess calories Is this a current diagnosis for this admission?: Yes (5) Diabetes mellitus type 2 in obese Is this a current diagnosis for this admission?: Yes (6) HTN (hypertension) Is this a current diagnosis for this admission?: Yes - Additional Information Resuscitation Status: Full Code Prescriptions: Esomeprazole Magnesium [Nexium] 40 mg PO BID #60 capsule. Home Medications: Losartan Potassium [Cozaar 50 mg Tablet] 100 mg PO DAILY 11/10/17 Oxycodone HCl/Acetaminophen [Percocet 5-325 mg Tablet] 2 tab PO Q6HP PRN MDD filled 11/04 for 4ds 11/10/17 Esomeprazole Magnesium [Nexium] 40 mg PO BID #60 capsule. 11/13/17 History of Present Illness Patient complains of: Shortness of breath History of Present Illness: STEVEN CORREIA is a 47 year old female of Dr. Hernandez who presented to the ED with cc of shortness of breath 7 days post SHERON with BSO. Thre was concern for pulmonary embolism but her CTA chest and Abdomen was negative for pulmonary embolism. Hospital Course Hospital Course: Her evaluation was significant for anemia along with her compliant of chest pain , fluttering heart, shortness of breath and feeling drained there was concern for symptomatic anemia. She has history of iron deficiency anemia with uterine fibroid and menorrhagia that led to her surgery. She was transfused 2 units PRBC. She was was admitted to [facility] service initially but transferred to Dr Hernandez service due to observed ventricular bigeminy. Patient has history of MJ and has not been compliant with use of CPAP machine regularly. She was seen in consultation at the request of the [employer]PER[employer] team by Dr Hanson and Mitral, oncologist and pullman car clerk respectively. She may benefit from outpatient iron infusion therapy and if indicated Procrit to treat her iron deficiency anemia. Physical Exam Vital Signs: Temp Pulse Resp BP Pulse Ox 98.6 F 73 20 147/78 H 99 11/13/17 11:59 11/13/17 11:59 11/13/17 11:59 11/13/17 11:59 11/13/17 11:59 Intake & Output 11/12/17 11/13/17 11/14/17 06:59 06:59 06:59 Intake Total 1240 4192 Output Total 1000 425 Balance 240 3767 Weight 121.563 kg 131.2 kg Physical Exam: General appearance: PRESENT: morbidly obese Head exam: PRESENT: atraumatic, normocephalic Mouth exam: PRESENT: moist Respiratory exam: PRESENT: clear to auscultation caden Cardiovascular exam: PRESENT: RRR. ABSENT: diastolic murmur, rubs, systolic murmur Vascular exam: PRESENT: normal capillary refill. ABSENT: pallor GI/Abdominal exam: PRESENT: normal bowel sounds, soft. ABSENT: distended, guarding, mass, organomegaly, rebound, tenderness Extremities exam: ABSENT: pedal edema Musculoskeletal exam: PRESENT: normal inspection Neurological exam: PRESENT: alert, awake, oriented to person, oriented to place , oriented to time, oriented to situation, CN II-XII grossly intact. ABSENT: motor sensory deficit Psychiatric exam: PRESENT: appropriate affect, normal mood. ABSENT: homicidal ideation, suicidal ideation Skin exam: PRESENT: dry, warm, other - operative site healing satisfactorily Results Laboratory Results: 11/13/17 04:51 11/12/17 04:05 11/13/17 04:51 WBC 11.3 H RBC 3.68 L Hgb 8.8 L Hct 27.4 L MCV 74 L MCH 23.9 L MCHC 32.1 RDW 18.4 H Plt Count 361 Seg Neutrophils % 71.3 Lymphocytes % 18.6 Monocytes % 6.9 Eosinophils % 2.2 Basophils % 1.0 Absolute Neutrophils 8.0 Absolute Lymphocytes 2.1 Absolute Monocytes 0.8 Absolute Eosinophils 0.3 Absolute Basophils 0.1 11/11/17 11/11/17 11/11/17 02:58 02:58 08:53 Creatine Kinase 243 H 236 H CK-MB (CK-2) 0.23 Troponin I 0.013 NT-Pro-B Natriuret Pep 231 H 11/11/17 11/11/17 11/11/17 08:53 20:25 20:25 Creatine Kinase 165 H CK-MB (CK-2) 0.32 0.29 Troponin I < 0.012 0.014 NT-Pro-B Natriuret Pep 307 H 11/12/17 11/12/17 11/12/17 04:05 04:05 05:23 Creatine Kinase Cancelled CK-MB (CK-2) Cancelled < 0.22 Troponin I Cancelled < 0.012 NT-Pro-B Natriuret Pep 11/12/17 05:23 Creatine Kinase 123 CK-MB (CK-2) Troponin I NT-Pro-B Natriuret Pep Impressions: Chest X-Ray 11/09/17 21:53 IMPRESSION: NO ACUTE RADIOGRAPHIC FINDING IN THE CHEST. Chest/Abdomen CTA 11/10/17 00:00 IMPRESSION: 1. No acute pulmonary embolus identified. Suboptimal evaluation of the segmental and subsegmental pulmonary dural branches due to contrast bolus timing and respiratory motion artifact. This exam was performed according to our departmental dose-optimization program, which includes automated exposure control, adjustment of the mA and/or kV according to patient size and/or use of iterative reconstruction technique. Qualifiers PATEINT BEING DISCHARGED WITH ANY OF THE FOLLOWING DIAGNOSIS?: No Plan Discharge Plan: D/C home today with instruction to follow up with Dr Ramirez as instructed upon discharge.
--- NOTE | 2017-11-13 15:04 | PDOC PROGRESS REPORT ---
Subjective Progress Note for:: 11/13/17 Subjective:: Patient seems to be doing better with significant improvement. Patient had received blood transfusion last night. Pt is denying any chest arm or neck discomfort. Patient denying any PND, orthopnea. Patient denied any sustained palpitations, dizziness, syncope, near syncope. Patient denying any fever chills. Patient denying any other significant discomfort. Patient wanting to be discharged. Patient is maintaining sinus rhythm. Occasional VPCs noted but no sustained tachycardia or bradycardia arrhythmias noted. Review of systems: Rest review of systems negative. Medications: Medications have been reviewed. Reason For Visit: MORBID OBESITY, DM, HTN, POSTOP FROM HYSTERECTOMY Physical Exam Vital Signs: Temp Pulse Resp BP Pulse Ox 98.6 F 73 20 147/78 H 99 11/13/17 11:59 11/13/17 11:59 11/13/17 11:59 11/13/17 11:59 11/13/17 11:59 Intake & Output 11/12/17 11/13/17 11/14/17 06:59 06:59 06:59 Intake Total 1240 4192 Output Total 1000 425 Balance 240 3767 Weight 121.563 kg 131.2 kg Exam: GENERAL: well-nourished and in no acute distress. Alert and oriented x3 HEAD: Atraumatic, normocephalic. EYES: Pupils equal round and reactive to light, extraocular movements intact, sclera anicteric, conjunctiva are normal. ENT: TMs normal, nares patent, oropharynx clear without exudates. Moist mucous membranes. No oral ulcerations or bleeding gums noted NECK: supple without lymphadenopathy. Trachea is central. No cervical or axillary lymphadenopathy noted. Carotids are 2+, JVD WNL LUNGS: Respiration seems nonlabored, no significant accessory muscle action noted. Breath sounds clear to auscultation bilaterally and equal noted. No wheezes rales or rhonchi noted. No significant dullness noted on percussion. CHEST: Palpation of the chest wall shows no significant chest wall tenderness. No other significant abnormalities noted. 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 ABDOMEN: Soft, no significant tenderness appreciated, normoactive bowel sounds. No guarding, no rebound. No rigidity noted . No masses appreciated. EXTREMITIES: Pedal pulses are 1-2+, no calf tenderness noted. No clubbing or cyanosis.trace to 1+ pedal edema noted NEUROLOGICAL: Focused neurological exam showed no significant neurologic deficit. Normal speech, no focal weakness appreciated. PSYCH: Normal mood, normal affect. Judgment and insight within normal limits. SKIN: No significant ecchymosis, rash, ulcerations or signs of pruritus noted. MUSCULOSKELETAL EXAM: No significant joint swelling noted. Results Laboratory Results: 11/13/17 04:51 11/12/17 04:05 11/13/17 04:51 WBC 11.3 H RBC 3.68 L Hgb 8.8 L Hct 27.4 L MCV 74 L MCH 23.9 L MCHC 32.1 RDW 18.4 H Plt Count 361 Seg Neutrophils % 71.3 Lymphocytes % 18.6 Monocytes % 6.9 Eosinophils % 2.2 Basophils % 1.0 Absolute Neutrophils 8.0 Absolute Lymphocytes 2.1 Absolute Monocytes 0.8 Absolute Eosinophils 0.3 Absolute Basophils 0.1 11/11/17 11/11/17 11/11/17 02:58 02:58 08:53 Creatine Kinase 243 H 236 H CK-MB (CK-2) 0.23 Troponin I 0.013 NT-Pro-B Natriuret Pep 231 H 11/11/17 11/11/17 11/11/17 08:53 20:25 20:25 Creatine Kinase 165 H CK-MB (CK-2) 0.32 0.29 Troponin I < 0.012 0.014 NT-Pro-B Natriuret Pep 307 H 11/12/17 11/12/17 11/12/17 04:05 04:05 05:23 Creatine Kinase Cancelled CK-MB (CK-2) Cancelled < 0.22 Troponin I Cancelled < 0.012 NT-Pro-B Natriuret Pep 11/12/17 05:23 Creatine Kinase 123 CK-MB (CK-2) Troponin I NT-Pro-B Natriuret Pep Impressions: Chest X-Ray 11/09/17 21:53 IMPRESSION: NO ACUTE RADIOGRAPHIC FINDING IN THE CHEST. Chest/Abdomen CTA 11/10/17 00:00 IMPRESSION: 1. No acute pulmonary embolus identified. Suboptimal evaluation of the segmental and subsegmental pulmonary dural branches due to contrast bolus timing and respiratory motion artifact. This exam was performed according to our departmental dose-optimization program, which includes automated exposure control, adjustment of the mA and/or kV according to patient size and/or use of iterative reconstruction technique. Assessment & Plan - Diagnosis (1) Chest pain Qualifiers: Chest pain type: other chest pain Qualified Code(s): R07.89 - Other chest pain; R07.8 - Other chest pain Is this a current diagnosis for this admission?: Yes (2) Anemia Qualifiers: Anemia type: iron deficiency Iron deficiency anemia type: chronic blood loss Qualified Code(s): D50.0 - Iron deficiency anemia secondary to blood loss (chronic) Is this a current diagnosis for this admission?: Yes (3) Obesity Qualifiers: Obesity type: unspecified obesity type Obesity classification: unspecified obesity classification Serious obesity comorbidity presence: unspecified whether serious comorbidity present Qualified Code(s): E66.9 - Obesity, unspecified Is this a current diagnosis for this admission?: Yes (4) Gastroesophageal reflux disease Qualifiers: Esophagitis presence: esophagitis presence not specified Qualified Code(s) : K21.9 - Gastro-esophageal reflux disease without esophagitis Is this a current diagnosis for this admission?: Yes - Notes Notes: Chest pain: This is felt to be possibly noncardiac and related to gastroesophageal reflux. Pulmonary embolism was in the differential diagnosis and has been ruled out by a CTA to a reasonable degree. At this point recommend double dose proton pump inhibitor. Patient stable without any recurrence. Feel that any further evaluation can be completed as an outpatient. Patient encouraged to schedule a stress test as an outpatient. Gastroesophageal reflux disease: Continue double dose proton pump inhibitor. Patient will benefit from aggressive weight loss. Patient will also benefit from evaluation of sleep apnea syndrome if this has not been performed in the past. Anemia: Patient being followed by hematology oncology and had received blood transfusion. Baseline hemoglobin has improved. Obesity: Patient will benefit from weight loss. This was explained. Patient encouraged in regular walking program, weight loss, risk factor modification. Patient advised to follow-up with me for both chest pain, sleep apnea syndrome, obesity etc. - Time Time with patient: 15-25 minutes - CODE STATUS was discussed, patient remains full code. Surrogate decision-maker unchanged. Multiple medical problems were addressed. More than 50% of the time spent coordinating care, discussing management plans with involved caregivers. Management plans discussed with involved personnels. Medical decision making was of moderate to high complexity , patient's has multiple comorbidities. Medications reviewed and adjusted accordingly: Yes
[2017-11-13 15:31] VITALS: BP 149/76
== END 2017-11-13 15:56 | disposition home or self-care (01) | DRG 812 ==
LOC: ER 21:52 → EH 11-10 03:15 → UNDOADMOB 11-10 03:15 → INTOOBSV 11-10 03:15 → 2N 11-10 04:15 → OBSVTOIN 11-10 04:15 → EH 11-10 04:15 → 2N 11-10 04:15 → 4S 11-11 04:20
PROVIDERS: ADMIT Internal Medicine; ATTEND Internal Medicine
PROC: 30233N1 Transfusion of Nonautologous Red Blood Cells into Peripheral Vein, Percutaneous Approach (ICD-10-PCS; principal; 2017-11-10)
PROC: 30233N1 Transfusion of Nonautologous Red Blood Cells into Peripheral Vein, Percutaneous Approach (ICD-10-PCS; 2017-11-11)
DX: D50.0 Iron deficiency anemia secondary to blood loss (chronic) (principal); Z68.42 Body mass index [BMI] 45.0-49.9, adult; R07.9 Chest pain, unspecified; E66.01 Morbid (severe) obesity due to excess calories; I10 Essential (primary) hypertension; K21.9 Gastro-esophageal reflux disease without esophagitis; G47.33 Obstructive sleep apnea (adult) (pediatric); E11.9 Type 2 diabetes mellitus without complications; Z98.84 Bariatric surgery status; Z86.711 Personal history of pulmonary embolism; Z90.49 Acquired absence of other specified parts of digestive tract; Z90.710 Acquired absence of both cervix and uterus; Z90.722 Acquired absence of ovaries, bilateral
CPT/HCPCS: 36415; 36430; 71010; 71275; 80048; 80053; 80061; 82550; 82553; 82607; 82728; 82746; 82962; 83036; 83540; 83550; 83735; 83880; 84466; 84484; 85025; 85027; 85045; 85610; 85730; 86850; 86900; 86901; 86920; 93005; 93010; 99285; G0378; J1650; J7120; P9016; Q0138

== ENCOUNTER → 2018-02-08 | Outpatient (CLI) | payer OTHER ==
--- NOTE | 2018-02-08 16:56 | RADIOLOGY REPORT (SQ) ---
EXAM DESCRIPTION: ANKLE RIGHT AP/LATERAL COMPLETED DATE/TIME: 02/08/2018 4:41 pm REASON FOR STUDY: M25.571 PAIN IN RIGHT ANKLE AND JOINTS OF RIGHT FOOT COMPARISON: Foot x-ray dated 08/24/2016. NUMBER OF VIEWS: Three views. TECHNIQUE: AP, lateral, and oblique radiographic images acquired of the right ankle. LIMITATIONS: None. FINDINGS: MINERALIZATION: Normal. BONES: No acute fracture or dislocation. No worrisome bone lesions. JOINTS: Degenerative changes with osteophytes. No effusions. SOFT TISSUES: No soft tissue swelling. No foreign body. OTHER: Again seen is hardware in the distal fibula. The lowest screw traversing the fibula and tibia is broken which is a chronic finding, unchanged since at least August 2016. IMPRESSION: SURGICAL CHANGES AND HARDWARE WITH FINDINGS ABOVE. DEGENERATIVE CHANGES IN THE ANKLE . NO ACUTE FINDINGS. TECHNICAL DOCUMENTATION: JOB ID: [id number] [employer]- All Rights Reserved Reading location - IP/workstation name: [email or web address]
== END ==
LOC: OD 16:22
PROVIDERS: ATTEND Internal Medicine
DX: M25.571 Pain in right ankle and joints of right foot (principal)

== ENCOUNTER 2018-05-06 09:36 | Emergency (ER) | payer OTHER ==
--- NOTE | 2018-05-06 10:01 | ER Document Report ---
ED Medical Screen (RME) - General Chief Complaint: Back Pain Stated Complaint: LOWER BACK PAIN Mode of Arrival: Ambulatory Information source: Patient Notes: 48 yr old female presents with complaints of urinary pressure , urinating on herself when she sneezes and coughs pt notes pelvic pressure since she got injured by a shopping cart hitting her back I have greeted and performed a rapid initial assessment of this patient. A comprehensive ED assessment and evaluation of the patient, analysis of test results and completion of the medical decision making process will be conducted by additional ED providers. PHYSICAL EXAMINATION: GENERAL: Well-appearing, well-nourished and in no acute distress. HEAD: Atraumatic, normocephalic. EYES: Pupils equal round extraocular movements intact, conjunctiva are normal. ENT: Nares patent NECK: Normal range of motion LUNGS: No respiratory distress Musculoskeletal: Normal range of motion NEUROLOGICAL: Normal speech, normal gait. PSYCH: Normal mood, normal affect. SKIN: Warm, Dry, normal turgor, no rashes or lesions noted. TRAVEL OUTSIDE OF THE [place] IN LAST 30 DAYS: No - Related Data Allergies/Adverse Reactions: No Known Allergies Allergy (Verified 11/10/17 04:52) Past Medical History - Past Medical History Cardiac Medical History: Reports: Hx Hypertension Denies: Hx Congestive Heart Failure, Hx Coronary Artery Disease, Hx Heart Attack Pulmonary Medical History: Reports: Hx Pneumonia Denies: Hx Asthma, Hx Bronchitis, Hx COPD, Hx Tuberculosis Neurological Medical History: Denies: Hx Cerebrovascular Accident, Hx Seizures Endocrine Medical History: Reports: Hx Diabetes Mellitus Type 2 Renal/ Medical History: Denies: Hx End Stage Renal Disease, Hx Kidney Stones, Hx Peritoneal Dialysis GI Medical History: Reports: Hx Gastroesophageal Reflux Disease. Denies: Hx Cirrhosis, Hx Ulcer Musculoskeltal Medical History: Reports Hx Arthritis, Denies Hx Multiple Sclerosis Psychiatric Medical History: Reports: Hx Depression Denies: Hx Bipolar Disorder, Hx Schizophrenia Past Surgical History: Reports: Hx Abdominal Surgery, Hx Breast Surgery, Hx Cholecystectomy, Hx Gastric Bypass Surgery, Hx Orthopedic Surgery - steel plate to rle., Other - SHERON/BSO - Immunizations Immunizations up to date: Yes Hx Diphtheria, Pertussis, Tetanus Vaccination: Yes History of Influenza Vaccine for 08/2017 - 01/2018 Season: No Physical Exam - Vital signs Vitals: Temp Pulse Resp BP Pulse Ox 98.7 F 84 16 166/93 H 98 06/24/18 09:42 05/06/18 09:42 05/06/18 09:42 05/06/18 09:42 05/06/18 09:42 Course - Vital Signs Vital signs: Temp Pulse Resp BP Pulse Ox 98.7 F 84 16 166/93 H 98 05/06/18 09:42 05/06/18 09:42 05/06/18 09:42 05/06/18 09:42 05/06/18 09:42 Doctor's Discharge - Discharge Referrals: CARRIE HERNANDEZ MD [Primary Care Provider] - Follow up as needed
--- NOTE | 2018-05-06 10:32 | ER Document Report ---
ED General - General Chief Complaint: Back Pain Stated Complaint: LOWER BACK PAIN Time Seen by Provider: 05/06/18 10:00 Mode of Arrival: Ambulatory Information source: Patient Notes: 48-year-old female presents emergency department with complaints of nausea, dysuria, suprapubic fullness, increased urinary frequency, stress incontinence over the last week. Patient says that about 2 weeks ago she was hit in the L back by a shopping cart. Went to a ED and had XR done that did not show an acute process. Patient says that the L back pain has been constant and she has now developed urinary symptoms. Back pain is located in the Left flank. No radiation. No alleviating or exacerbating factors. Patient denies numbness, tingling, weakness, bowel incontinence. Patient is able to ambulate. She denies vaginal discharge or vaginal bleeding. Not concerned about STDs. Does not want STD testing. Says had hysterectomy done a few months ago. TRAVEL OUTSIDE OF THE [place] IN LAST 30 DAYS: No - HPI Patient complains to provider of: dysuria Onset: Last week Onset/Duration: Sudden Quality of pain: Dull, Fullness, Pressure Severity: None Pain Level: Denies Exacerbated by: Coughing, Other - laughing, lifting Relieved by: Denies Similar symptoms previously: No Recently seen / treated by doctor: Yes - Related Data Allergies/Adverse Reactions: No Known Allergies Allergy (Verified 11/10/17 04:52) Past Medical History - General Information source: Patient - Social History Smoking Status: Never Smoker Chew tobacco use (# tins/day): No Frequency of alcohol use: None Drug Abuse: None Family History: Hypertension, Malignancy, Other - Family history of cancer Patient has suicidal ideation: No Patient has homicidal ideation: No - Past Medical History Cardiac Medical History: Reports: Hx Hypertension Denies: Hx Congestive Heart Failure, Hx Coronary Artery Disease, Hx Heart Attack Pulmonary Medical History: Reports: Hx Pneumonia Denies: Hx Asthma, Hx Bronchitis, Hx COPD, Hx Tuberculosis Neurological Medical History: Denies: Hx Cerebrovascular Accident, Hx Seizures Endocrine Medical History: Reports: Hx Diabetes Mellitus Type 2 Renal/ Medical History: Denies: Hx End Stage Renal Disease, Hx Kidney Stones, Hx Peritoneal Dialysis GI Medical History: Reports: Hx Gastroesophageal Reflux Disease. Denies: Hx Cirrhosis, Hx Ulcer Musculoskeltal Medical History: Reports Hx Arthritis, Denies Hx Multiple Sclerosis Psychiatric Medical History: Reports: Hx Depression Denies: Hx Bipolar Disorder, Hx Schizophrenia Past Surgical History: Reports: Hx Abdominal Surgery, Hx Breast Surgery, Hx Cholecystectomy, Hx Gastric Bypass Surgery, Hx Hysterectomy, Hx Orthopedic Surgery - steel plate to rle., Other - SHERON/BSO - Immunizations Immunizations up to date: Yes Hx Diphtheria, Pertussis, Tetanus Vaccination: Yes Review of Systems - Review of Systems Constitutional: No symptoms reported EENT: No symptoms reported Cardiovascular: No symptoms reported Respiratory: No symptoms reported Gastrointestinal: No symptoms reported Genitourinary: Burning, Dysuria, Frequency, Incontinence, Pain, Urgency Female Genitourinary: No symptoms reported Musculoskeletal: No symptoms reported Skin: No symptoms reported Neurological/Psychological: No symptoms reported -: Yes All other systems reviewed and negative Physical Exam - Vital signs Vitals: Temp Pulse Resp BP Pulse Ox 98.7 F 84 16 166/93 H 98 05/06/18 09:42 05/06/18 09:42 05/06/18 09:42 05/06/18 09:42 05/06/18 09:42 Interpretation: Normal - Notes Notes: PHYSICAL EXAMINATION: GENERAL: Well-appearing, well-nourished and in no acute distress. HEAD: Atraumatic, normocephalic. EYES: Pupils equal round and reactive to light, extraocular movements intact, conjunctiva are normal. ENT: Nares patent, oropharynx clear without exudates. Moist mucous membranes. NECK: Normal range of motion, supple without lymphadenopathy LUNGS: Breath sounds clear to auscultation bilaterally and equal. No wheezes rales or rhonchi. HEART: Regular rate and rhythm without murmurs ABDOMEN: Soft, tenderness to palpation in the suprapubic area, nondistended abdomen. No guarding, no rebound. No masses appreciated. Female : No vaginal discharge. No prolapse. Musculoskeletal: Normal range of motion, no pitting or edema. No cyanosis. NEUROLOGICAL: Cranial nerves grossly intact. Normal speech, normal gait. Normal sensory, motor exams PSYCH: Normal mood, normal affect. SKIN: Warm, Dry, normal turgor, no rashes or lesions noted. Course - Re-evaluation Re-evalutation: 05/06/18 10:45 Pelvic exam done. Patient does not want STD testing. No prolapse appreciated. No vaginal discharge. Patient is having suprapubic tenderness. UA shows UTI. I discussed obtaining labs and CT with the patient to evaluate for pyelonephritis. She declines them at this time. Patient wants to try outpatient antibiotics. I gave the patient 1G of rocephin in the ED. I will discharge home on levofloxacin. Patient told to take the medication as directed, to follow up her PCP this week, and to return for worsening symptoms. - Vital Signs Vital signs: Temp Pulse Resp BP Pulse Ox 98.7 F 84 16 166/93 H 98 05/06/18 09:42 05/06/18 09:42 05/06/18 09:42 05/06/18 09:42 05/06/18 09:42 - Laboratory Laboratory results interpreted by me: 05/06/18 10:04 Urine Protein 30 H Urine Glucose (UA) 50 H Urine Blood SMALL H Urine Urobilinogen 2.0 H Ur Leukocyte Esterase LARGE H Discharge - Discharge Clinical Impression: Urinary tract infection Qualifiers: Urinary tract infection type: acute pyelonephritis Qualified Code(s): N10 - Acute pyelonephritis Condition: Good Disposition: HOME, SELF-CARE Instructions: Urinary Tract Infection ([facility]) Prescriptions: Levofloxacin 750 mg PO DAILY 5 Days #5 tablet Referrals: CARRIE HERNANDEZ MD [Primary Care Provider] - Follow up as needed
[2018-05-06 10:37] LABS: AMORPHOUS SEDIMENT,URINE TRACE /HPF; APPEARANCE,URINE CLOUDY; BILIRUBIN,URINE NEGATIVE (NEGATIVE); COLOR,URINE AMBER; GLUCOSE, URINE 50 mg/dL (NEGATIVE); KETONES,URINE NEGATIVE (NEGATIVE); LEUKOCYTE ESTERASE,URINE LARGE (NEGATIVE); NITRITE,URINE NEGATIVE (NEGATIVE); PROTEIN,URINE 30 mg/dL (NEGATIVE); URINE SPECIFIC GRAVITY 1.024
[2018-05-06] MEDS ORDERED: CEFTRIAXONE INJ 1000 MG VIAL IM ONE (10:42)
[2018-05-06] MEDS ORDERED: LIDOCAINE 1% INJ-PF (10 MG/ML) 30 ML SDV ONE (10:48)
[2018-05-06 11:03] VITALS: BP 158/84
== END 2018-05-06 11:00 | disposition home or self-care (01) ==
LOC: ER 09:36
DX: N10 Acute pyelonephritis (principal); M54.5 Low back pain; R11.0 Nausea; R30.0 Dysuria; R35.0 Frequency of micturition; N39.3 Stress incontinence (female) (male); R10.9 Unspecified abdominal pain; W22.8XXA Striking against or struck by other objects, initial encounter; Z90.710 Acquired absence of both cervix and uterus; I10 Essential (primary) hypertension; E11.9 Type 2 diabetes mellitus without complications
CPT/HCPCS: 99283; 96372; 81001; J3490; J0696

== ENCOUNTER 2018-11-18 00:35 | Emergency (ER) | payer OTHER ==
[2018-11-18] MEDS ORDERED: TETRACAINE HCL 0.5% OPH SOLN 0.6 ML DROPERETTE OU ONE (02:07)
[2018-11-18] MEDS ORDERED: TETRACAINE HCL 0.5% OPH SOLN 0.6 ML DROPERETTE ONE (02:19)
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
[2018-11-18] MEDS ORDERED: MAG HYDROX/AL HYDROX/SIMETH SUSP 30 ML UDCUP PO ONE (02:24)
[2018-11-18] MEDS ORDERED: METOCLOPRAMIDE HCL ORAL SOLN 10 MG/10 ML UDCUP PO ONE (02:24)
[2018-11-18] MEDS ORDERED: LIDOCAINE 2% VISCOUS SOLN 20 ML UDCUP PO ONE (02:24)
[2018-11-18] MEDS ORDERED: ERYTHROMYCIN 0.5% OPH OINT 1 GM UNIT DOSE OD ONE (02:30)
[2018-11-18] MEDS ORDERED: BACITRACIN ZINC OINTMENT 15 GM TP ONE (02:31)
[2018-11-18 02:46] VITALS: BP 145/83
== END 2018-11-18 02:46 | disposition home or self-care (01) ==
LOC: ER 00:35
DX: T20.10XA Burn of first degree of head, face, and neck, unspecified site, initial encounter (principal); X08.8XXA Exposure to other specified smoke, fire and flames, initial encounter; I10 Essential (primary) hypertension; E11.9 Type 2 diabetes mellitus without complications
CPT/HCPCS: 99283; J3490

== ENCOUNTER 2019-02-19 22:25 | Emergency (ER) | payer OTHER ==
[2019-02-19 22:46] VITALS: BP 157/91
== END 2019-02-20 01:05 | disposition left against medical advice (07) ==
LOC: ER 22:25
DX: Z53.21 Procedure and treatment not carried out due to patient leaving prior to being seen by health care provider (principal)

== ENCOUNTER → 2019-02-20 | Outpatient (CLI) | payer OTHER ==
[2019-02-20 12:46] LABS: ABSOLUTE EOSINOPHILS # (AUTO) 0.1 10^3/uL (0.0-0.6); ABSOLUTE LYMPHOCYTES (AUTO) 1.9 10^3/uL (0.5-4.7); ABSOLUTE MONOCYTES (AUTO) 0.4 10^3/uL (0.1-1.4); ABSOLUTE NEUT (AUTO) 1.9 10^3/uL (1.7-8.2); BASOPHILS % (AUTO) 0.7 % (0-2); EOSINOPHILS % (AUTO) 2.7 % (0-6); HEMATOCRIT 43.9 % (36.0-47.0); HEMOGLOBIN 14.8 g/dL (12.0-15.5); LYMPHOCYTES % (AUTO) 43.7 % (13-45); MEAN CORPUSCULAR HEMOGLOBIN 27.3 pg (27.0-33.4); MEAN CORPUSCULAR HGB CONC 33.6 g/dL (32.0-36.0); MEAN CORPUSCULAR VOLUME 81 fl (80-97); MONOCYTES % (AUTO) 9.2 % (3-13); PLATELET COUNT 270 10^3/uL (150-450); RED BLOOD COUNT 5.42 10^6/uL (3.72-5.28); RED CELL DISTRIBUTION WIDTH 14.2 % (11.5-14.0); SEGMENTED NEUTROPHILS % (AUTO) 43.7 % (42-78); TOTAL CELLS COUNTED % (AUTO) 100 %; WHITE BLOOD COUNT 4.4 10^3/uL (4.0-10.5)
[2019-02-20 12:53] LABS: APPEARANCE,URINE SLIGHTLY-CLOUDY; BILIRUBIN,URINE NEGATIVE (NEGATIVE); COLOR,URINE YELLOW; GLUCOSE, URINE NEGATIVE (NEGATIVE); KETONES,URINE NEGATIVE (NEGATIVE); LEUKOCYTE ESTERASE,URINE NEGATIVE (NEGATIVE); NITRITE,URINE NEGATIVE (NEGATIVE); PROTEIN,URINE NEGATIVE (NEGATIVE); URINE SPECIFIC GRAVITY 1.024
[2019-02-20 13:14] LABS: ALANINE AMINOTRANSFERASE 43 U/L (9-52); ALBUMIN 3.9 g/dL (3.5-5.0); ALKALINE PHOSPHATASE 96 U/L (38-126); ANION GAP 7 (5-19); ASPARTATE AMINO TRANSFERASE 25 U/L (14-36); BILIRUBIN,DIRECT 0.3 mg/dL (0.0-0.4); BILIRUBIN,TOTAL 0.5 mg/dL (0.2-1.3); BLOOD UREA NITROGEN 12 mg/dL (7-20); CALCIUM 9.8 mg/dL (8.4-10.2); CARBON DIOXIDE 30 mmol/L (22-30); CHLORIDE 105 mmol/L (98-107); GLUCOSE 104 mg/dL (75-110); POTASSIUM 4.4 mmol/L (3.6-5.0); SODIUM 141.9 mmol/L (137-145); TOTAL PROTEIN 7.3 g/dL (6.3-8.2); URIC ACID 4.7 mg/dL (2.5-7.5)
[2019-02-20 13:28] LABS: FREE T4 (FREE THYROXINE) 1.03 ng/dL (0.78-2.19)
[2019-02-20 13:42] LABS: THYROID STIMULATING HORMONE 1.15 uIU/mL (0.47-4.68)
[2019-02-21 12:38] LABS: CREATININE URINE 257.2 mg/dL (Not Estab.)
== END ==
LOC: OD 11:14
PROVIDERS: ATTEND Internal Medicine
DX: E11.42 Type 2 diabetes mellitus with diabetic polyneuropathy (principal); N95.1 Menopausal and female climacteric states
CPT/HCPCS: 36415; 80053; 81001; 82043; 82570; 82672; 83001; 83002; 83036; 84439; 84443; 84550; 85025

== ENCOUNTER 2019-02-28 23:27 | Emergency (ER) | payer OTHER ==
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
[2019-03-01 03:09] VITALS: BP 150/78
== END 2019-03-01 02:45 | disposition home or self-care (01) ==
LOC: ER 23:27
DX: S09.90XA Unspecified injury of head, initial encounter (principal); W51.XXXA Accidental striking against or bumped into by another person, initial encounter; Y93.67 Activity, basketball; I10 Essential (primary) hypertension; E11.9 Type 2 diabetes mellitus without complications
CPT/HCPCS: 99283

== ENCOUNTER 2019-08-24 17:16 | Emergency (ER) | payer OTHER ==
[2019-08-24] MEDS ORDERED: HYDROCODONE/ACETAMINOPHEN 5-325 MG TABLET PO ONE (18:15)
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
--- NOTE | 2019-08-24 18:53 | RADIOLOGY REPORT (SQ) ---
EXAM DESCRIPTION: FOOT RIGHT COMPLETE COMPLETED DATE/TIME: 08/24/2019 6:44 pm REASON FOR STUDY: crush injury, r midfoot pain/5th MT pain COMPARISON: 08/24/2016 NUMBER OF VIEWS: Three views. TECHNIQUE: AP, lateral and oblique radiographic images acquired of the right foot. LIMITATIONS: None. FINDINGS: MINERALIZATION: Normal. BONES: No acute fracture or dislocation. Ossicles seen adjacent to the medial malleoli are unchanged , and are consistent with sequela of remote trauma. Calcaneal enthesopathy is present. No worrisome bone lesions. JOINTS: No effusions. SOFT TISSUES: No soft tissue swelling. No foreign body. OTHER: Partially imaged plate and screw fixation of the distal fibula with a broken syndesmotic screw ; this is unchanged from that seen on 2016 comparison imaging. IMPRESSION: No evidence of acute osseous injury. Stable postsurgical and posttraumatic changes. TECHNICAL DOCUMENTATION: JOB ID: [id number] [employer]- All Rights Reserved Reading location - IP/workstation name: [email or web address]
[2019-08-24] MEDS ORDERED: HYDROCODONE/ACETAMINOPHEN 5-325 MG (6 TAB/ER DISP) PO PRN (19:03)
[2019-08-24 19:31] VITALS: BP 152/84
== END 2019-08-24 19:35 | disposition home or self-care (01) ==
LOC: ER 17:16
DX: S97.81XA Crushing injury of right foot, initial encounter (principal); W50.0XXA Accidental hit or strike by another person, initial encounter; I10 Essential (primary) hypertension; E11.9 Type 2 diabetes mellitus without complications; Z90.49 Acquired absence of other specified parts of digestive tract; Z98.84 Bariatric surgery status
CPT/HCPCS: 99283

== ENCOUNTER → 2019-10-01 | Outpatient (CLI) | payer OTHER ==
--- NOTE | 2019-10-02 10:04 | WOMENS IMAGING REPORT ---
EXAM DESCRIPTION: 3D SCREENING MAMMO BILAT COMPLETED DATE/TIME: 10/01/2019 3:39 pm REASON FOR STUDY: Z12.31 SCREENING MAMMO Z12.31 ENCNTR SCREEN MAMMOGRAM FOR MALIGNANT NEOPLASM OF B RE COMPARISON: Multiple since 2010 EXAM PARAMETERS: Views: Standard craniocaudal and mediolateral oblique views of each breast recorded using digital acquisition and breast tomosynthesis. Read with the assistance of CAD. .[facility] - [email or web address] Version 9.2 LIMITATIONS: None. FINDINGS: No suspicious masses, suspicious calcifications or architectural distortion. No areas of c oncern. IMPRESSION: NEGATIVE MAMMOGRAM. BIRADS 1. BREAST DENSITY: b. There are scattered areas of fibroglandular density. BIRAD: ASSESSMENT: 1 NEGATIVE RECOMMENDATION: ROUTINE SCREENING Please continue yearly bilateral screening mammography/tomosynthesis in September 2020 COMMENT: The patient has been notified of the results by letter per [facility] requirements. Additional no tification policies are in place for contacting patient with suspicious or incomplete findings. Quality ID #[id number]: The [employer] recommends an annual screening mammogram for women aged 40 years or over. This facility utilizes a reminder system to ensure that all patients receive reminder letters, and/or direct phone calls for appointments. This includes reminders for routine scr eening mammograms, diagnostic mammograms, or other Breast Imaging Interventions when appropriate. Th is patient will be placed in the appropriate reminder system. TECHNICAL DOCUMENTATION: FINDING NUMBER: (1) ASSESSMENT: (1) JOB ID: [id number] [employer]- All Rights Reserved Reading location - IP/workstation name: [email or web address]
== END ==
LOC: WI 15:20
PROVIDERS: ATTEND Internal Medicine
DX: Z12.31 Encounter for screening mammogram for malignant neoplasm of breast (principal)
CPT/HCPCS: 77063; 77067

== ENCOUNTER 2019-10-25 15:42 | Observation (INO) | payer OTHER ==
[2019-10-25] MEDS ORDERED: ASPIRIN 81 MG TABLET, CHEWABLE PO ONE ×2 (18:15→22:30)
[2019-10-25] MEDS ORDERED: CLOPIDOGREL BISULFATE 300 MG TABLET PO ONE (18:15)
[2019-10-25] MEDS: NITROGLYCERIN 50 MG/D5W 250 ML IV PRN ×2 (18:24→23:03)
[2019-10-25 19:14] LABS: ABSOLUTE EOSINOPHILS # (AUTO) 0.2 10^3/uL (0.0-0.6); ABSOLUTE LYMPHOCYTES (AUTO) 1.9 10^3/uL (0.5-4.7); ABSOLUTE MONOCYTES (AUTO) 0.5 10^3/uL (0.1-1.4); ABSOLUTE NEUT (AUTO) 4.2 10^3/uL (1.7-8.2); BASOPHILS % (AUTO) 0.7 % (0-2); EOSINOPHILS % (AUTO) 2.4 % (0-6); HEMATOCRIT 41.1 % (36.0-47.0); HEMOGLOBIN 13.5 g/dL (12.0-15.5); LYMPHOCYTES % (AUTO) 28.4 % (13-45); MEAN CORPUSCULAR HEMOGLOBIN 26.6 pg (27.0-33.4); MEAN CORPUSCULAR HGB CONC 32.9 g/dL (32.0-36.0); MEAN CORPUSCULAR VOLUME 81 fl (80-97); MONOCYTES % (AUTO) 7.7 % (3-13); PLATELET COUNT 225 10^3/uL (150-450); RED BLOOD COUNT 5.09 10^6/uL (3.72-5.28); SEGMENTED NEUTROPHILS % (AUTO) 60.8 % (42-78); TOTAL CELLS COUNTED % (AUTO) 100 %; WHITE BLOOD COUNT 6.9 10^3/uL (4.0-10.5)
[2019-10-25 19:35] LABS: ALBUMIN 3.6 g/dL (3.5-5.0); ALKALINE PHOSPHATASE 85 U/L (38-126); ANION GAP 9 (5-19); ASPARTATE AMINO TRANSFERASE 19 U/L (14-36); BILIRUBIN,DIRECT 0.1 mg/dL (0.0-0.4); BILIRUBIN,TOTAL 0.4 mg/dL (0.2-1.3); BLOOD UREA NITROGEN 11 mg/dL (7-20); CALCIUM 9.2 mg/dL (8.4-10.2); CARBON DIOXIDE 27 mmol/L (22-30); CHLORIDE 102 mmol/L (98-107); CREATINE KINASE 117 U/L (30-135); GLUCOSE 178 mg/dL (75-110); POTASSIUM 3.9 mmol/L (3.6-5.0); TOTAL PROTEIN 6.9 g/dL (6.3-8.2)
[2019-10-25 19:47] LABS: CREATINE KINASE MB 1.89 ng/mL (<4.55)
[2019-10-25 19:48] LABS: TROPONIN I < 0.012 ng/mL
[2019-10-25 19:51] LABS: FREE T4 (FREE THYROXINE) 0.99 ng/dL (0.78-2.19)
[2019-10-25 20:05] LABS: THYROID STIMULATING HORMONE 1.52 uIU/mL (0.47-4.68)
--- NOTE | 2019-10-25 20:58 | RADIOLOGY REPORT (SQ) ---
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 COMPARISON: 11/09/2017 FINDINGS: The cardiomediastinal silhouette is within normal limits. No focal consolidation, pleural effusion, or pneumothorax. No acute bony findings are seen. IMPRESSION: No evidence of acute cardiopulmonary disease.
[2019-10-25] MEDS ORDERED: DEXTROSE 40% GEL 15 GM TUBE PO PRN ×2 (21:12)
[2019-10-25] MEDS ORDERED: DEXTROSE 50%-WATER 25 GM/50 ML DISP.SYRIN IV PRN ×2 (21:12)
[2019-10-25] MEDS ORDERED: GLUCAGON,HUMAN RECOMB 1 MG INJ IM PRN (21:12)
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
--- NOTE | 2019-10-25 21:57 | EKG REPORT ---
SEVERITY:- ABNORMAL ECG - SINUS RHYTHM FIRST DEGREE AV BLOCK RIGHT BUNDLE BRANCH BLOCK : Confirmed by: Liborio Min MD 25-Oct-2019 21:57:03
[2019-10-25] MEDS: INSULIN LISPRO 100 UNIT/ML 3 ML VIAL SUBCUT SCH (22:35)
[2019-10-25 23:29] LABS: APPEARANCE,URINE CLOUDY; BILIRUBIN,URINE NEGATIVE (NEGATIVE); COLOR,URINE YELLOW; GLUCOSE, URINE 50 mg/dL (NEGATIVE); KETONES,URINE NEGATIVE (NEGATIVE); LEUKOCYTE ESTERASE,URINE LARGE (NEGATIVE); NITRITE,URINE NEGATIVE (NEGATIVE); PROTEIN,URINE 30 mg/dL (NEGATIVE); URINE SPECIFIC GRAVITY 1.025
[2019-10-26] MEDS ORDERED: PANTOPRAZOLE SODIUM 20 MG TABLET.DR PO ONE (00:45)
[2019-10-26] MEDS: NITROGLYCERIN 2% OINTMENT 1 GM PACKET TP SCH ×4 (05:48→23:15)
[2019-10-26] MEDS ORDERED: NITROGLYCERIN 2% OINTMENT 1 GM PACKET TP SCH (06:00)
[2019-10-26] MEDS ORDERED: PANTOPRAZOLE SODIUM 20 MG TABLET.DR PO SCH (06:00)
--- NOTE | 2019-10-26 08:32 | RADIOLOGY REPORT (SQ) ---
EXAM DESCRIPTION: CTA CHEST COMPLETED DATE/TIME: 10/26/2019 8:04 am REASON FOR STUDY: cp/elavated d dimer COMPARISON: 2017. Recent radiographs. TECHNIQUE: CT scan of the chest performed using helical scanning technique with dynamic intravenous contrast injection. Images reviewed with lung, soft tissue and bone windows. Reconstructed coronal and sagittal MPR images reviewed. Additional 3 dimensional post-processing performed to develop Maximal Intensity Projection images ([place] P). All images stored on PACS. All CT scanners at this facility use dose modulation, iterative reconstruction, and/or weight based d osing when appropriate to reduce radiation dose to as low as reasonably achievable (ALARA). [facility]: Dose Right [facility]: CareDose [facility]: Dose Right [facility]: Teradose 4D [facility]: Dittit CONTRAST TYPE AND DOSE: contrast/concentration: Isovue 350.00 mg/ml; Total Contrast Delivered: 75.0 ml; Total Saline Delivered: 80.0 ml RENAL FUNCTION: GFR > 60. RADIATION DOSE: CT Rad equipment meets quality standard of care and radiation dose reduction techniq ues were employed. CTDIvol: 6.6 - 39.7 mGy. DLP: 1269 mGy-cm. . LIMITATIONS: Mildly suboptimal contrast bolus for evaluation of the pulmonary arteries. FINDINGS: LUNGS AND PLEURA: No masses, infiltrates, or pneumothorax. No pleural effusions or pleura l calcifications. AORTA AND GREAT VESSELS: No dissection or aneurysm. Patent great vessel origins. HEART: Cardiomegaly without evidence of pericardial effusion. No significant coronary artery calcific ations. PULMONARY ARTERIES: Central pulmonary arteries are free of thrombus. Slightly diminished contrast pierre kami mildly limits evaluation of the peripheral branches. No gross clot. HILAR AND MEDIASTINAL STRUCTURES: No identified masses or abnormal nodes. HARDWARE: None in the chest. UPPER ABDOMEN: Status post gastric bypass. THYROID AND OTHER SOFT TISSUES: No masses. No adenopathy. BONES: No acute or significant finding. 3D MIPS: Confirm above findings. OTHER: No other significant finding. IMPRESSION: 1. No evidence of aortic aneurysm or dissection. 2. No gross pulmonary embolus, mildly limited contrast bolus. 3. Clear lungs. No active infiltrates or suspicious opacity. COMMENT: Quality ID # [id number]: Final reports with documentation of one or more dose reduction techniques (e.g., Automated exposure control, adjustment of the mA and/or kV according to patient size, use of iterative reconstruction technique) TECHNICAL DOCUMENTATION: JOB ID: [id number] [employer]- All Rights Reserved Reading location - IP/workstation name: [email or web address]
[2019-10-26] MEDS: INSULIN LISPRO 100 UNIT/ML 3 ML VIAL SUBCUT SCH ×4 (08:49→21:30)
[2019-10-26] MEDS: ENOXAPARIN SODIUM INJ 40 MG/0.4 ML DISP.SYRIN SUBCUT SCH (09:59)
[2019-10-26] MEDS: CLOPIDOGREL BISULFATE 75 MG TABLET PO SCH (09:59)
[2019-10-26 10:21] LABS: CREATINE KINASE MB 1.12 ng/mL (<4.55)
[2019-10-26 10:25] LABS: TROPONIN I < 0.012 ng/mL
--- NOTE | 2019-10-26 10:32 | PDOC PROGRESS REPORT ---
Subjective Progress Note for:: 10/26/19 Subjective:: He was admitted because of the chest pain Patient initial cardiac enzyme was negative but d-dimer was elevated Patient CT angiogram was ordered was negative for any PE Reason For Visit: CHEST PAIN,ABNORMALEKG Physical Exam Vital Signs: Temp Pulse Resp BP Pulse Ox 98.3 F 80 20 136/70 H 95 10/26/19 03:56 10/26/19 07:00 10/26/19 03:56 10/26/19 06:40 10/26/19 03:56 Intake & Output 10/25/19 10/26/19 10/27/19 06:59 06:59 06:59 Intake Total 544 Output Total 0 Balance 544 Weight 134.4 kg General appearance: PRESENT: no acute distress, well-developed, well-nourished Head exam: PRESENT: atraumatic, normocephalic Eye exam: PRESENT: conjunctiva pink, EOMI, PERRLA. ABSENT: scleral icterus Ear exam: PRESENT: normal external ear exam Mouth exam: PRESENT: moist, tongue midline Neck exam: PRESENT: full ROM. ABSENT: carotid bruit, JVD, lymphadenopathy, thyromegaly Respiratory exam: PRESENT: clear to auscultation caden Cardiovascular exam: PRESENT: RRR. ABSENT: diastolic murmur, rubs, systolic murmur Pulses: PRESENT: normal dorsalis pedis pul, +2 pedal pulses bilateral Vascular exam: PRESENT: normal capillary refill GI/Abdominal exam: PRESENT: normal bowel sounds, soft. ABSENT: distended, guarding, mass, organolmegaly, rebound, tenderness Rectal exam: PRESENT: deferred Musculoskeletal exam: PRESENT: ambulatory Neurological exam: PRESENT: alert, awake, oriented to person, oriented to place, oriented to time, oriented to situation, CN II-XII grossly intact. ABSENT: m otor sensory deficit Psychiatric exam: PRESENT: appropriate affect, normal mood. ABSENT: homicidal ideation, suicidal ideation Skin exam: PRESENT: dry, intact, warm. ABSENT: cyanosis, rash Results Laboratory Results: 10/25/19 18:56 10/25/19 18:56 10/25/19 10/25/19 10/25/19 18:56 18:56 18:56 WBC 6.9 RBC 5.09 Hgb 13.5 Hct 41.1 MCV 81 MCH 26.6 L MCHC 32.9 RDW 14.0 Plt Count 225 Seg Neutrophils % 60.8 Sodium 137.6 Potassium 3.9 Chloride 102 Carbon Dioxide 27 Anion Gap 9 BUN 11 Creatinine 0.76 Est GFR ( Amer) > 60 Glucose 178 H Calcium 9.2 Total Bilirubin 0.4 AST 19 Alkaline Phosphatase 85 Total Protein 6.9 Albumin 3.6 TSH 1.52 Free T4 0.99 Urine Color Urine Appearance Urine pH Ur Specific [place] Urine Protein Urine Glucose (UA) Urine Ketones Urine Blood Urine Nitrite Ur Leukocyte Esterase Urine WBC (Auto) Urine RBC (Auto) 10/25/19 23:00 WBC RBC Hgb Hct MCV MCH MCHC RDW Plt Count Seg Neutrophils % Sodium Potassium Chloride Carbon Dioxide Anion Gap BUN Creatinine Est GFR ( Amer) Glucose Calcium Total Bilirubin AST Alkaline Phosphatase Total Protein Albumin TSH Free T4 Urine Color YELLOW Urine Appearance CLOUDY Urine pH 5.0 Ur Specific [place] 1.025 Urine Protein 30 H Urine Glucose (UA) 50 H Urine Ketones NEGATIVE Urine Blood NEGATIVE Urine Nitrite NEGATIVE Ur Leukocyte Esterase LARGE H Urine WBC (Auto) 61 Urine RBC (Auto) 6 10/25/19 10/25/19 18:56 18:56 Creatine Kinase 117 CK-MB (CK-2) 1.89 Troponin I < 0.012 Impressions: Chest X-Ray 10/25/19 00:00 IMPRESSION: No evidence of acute cardiopulmonary disease. Chest/Abdomen CTA 10/26/19 00:00 IMPRESSION: 1. No evidence of aortic aneurysm or dissection. 2. No gross pulmonary embolus, mildly limited contrast bolus. 3. Clear lungs. No active infiltrates or suspicious opacity. Assessment & Plan - Diagnosis (1) Chest pain Qualifiers: Chest pain type: precordial pain Qualified Code(s): R07.2 - Precordial pain Is this a current diagnosis for this admission?: Yes Plan: Patient CT angiogram is negative Will wait for the cardiology evaluations Will increase the Protonix 40 mg twice a day (2) Diabetes mellitus type 2 in obese Is this a current diagnosis for this admission?: Yes Plan: To the sliding scale (3) Gastroesophageal reflux disease Qualifiers: Esophagitis presence: esophagitis presence not specified Qualified Code(s): K21.9 - Gastro-esophageal reflux disease without esophagitis Is this a current diagnosis for this admission?: Yes Plan: Continues the omeprazole increase twice a day (4) HTN (hypertension) Qualifiers: Hypertension type: essential hypertension Qualified Code(s): I10 - Essential (primary) hypertension Is this a current diagnosis for this admission?: Yes (5) Morbid obesity Is this a current diagnosis for this admission?: Yes (6) MJ on CPAP Is this a current diagnosis for this admission?: Yes - Time Time Spent with patient: 15-24 minutes Level of Care: IMCU Medications reviewed and adjusted accordingly: Yes Anticipated discharge: Other Within: Other - Plan Summary Plan Summary: The serial cardiac enzymes Wait for cardiology's evaluations Increase the PPI twice a day
--- NOTE | 2019-10-26 14:55 | EKG REPORT ---
SEVERITY:- ABNORMAL ECG - SINUS RHYTHM FIRST DEGREE AV BLOCK RIGHT BUNDLE BRANCH BLOCK : Confirmed by: Liborio Min MD 26-Oct-2019 14:54:53
--- NOTE | 2019-10-26 14:55 | EKG REPORT ---
SEVERITY:- ABNORMAL ECG - SINUS RHYTHM FIRST DEGREE AV BLOCK PROBABLE LEFT ATRIAL ABNORMALITY RIGHT BUNDLE BRANCH BLOCK : Confirmed by: Liborio Min MD 26-Oct-2019 14:54:37
[2019-10-26 15:38] LABS: CREATINE KINASE MB 1.12 ng/mL (<4.55); TROPONIN I < 0.012 ng/mL
[2019-10-26] MEDS: PANTOPRAZOLE SODIUM 20 MG TABLET.DR PO SCH (17:15)
[2019-10-26 21:51] LABS: CREATINE KINASE MB 0.82 ng/mL (<4.55)
[2019-10-26 21:55] LABS: TROPONIN I < 0.012 ng/mL
[2019-10-26] MEDS ORDERED: ASPIRIN 81 MG TABLET, CHEWABLE PO SCH (22:00)
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
[2019-10-26] MEDS ORDERED: ACETAMINOPHEN 325 MG TABLET ONE (23:09)
[2019-10-26] MEDS: ACETAMINOPHEN 325 MG TABLET PO PRN (23:15)
[2019-10-27] MEDS: PANTOPRAZOLE SODIUM 20 MG TABLET.DR PO SCH (06:55)
[2019-10-27] MEDS: NITROGLYCERIN 2% OINTMENT 1 GM PACKET TP SCH (06:59)
[2019-10-27] MEDS: CLOPIDOGREL BISULFATE 75 MG TABLET PO SCH (09:10)
[2019-10-27] MEDS: INSULIN LISPRO 100 UNIT/ML 3 ML VIAL SUBCUT SCH (09:10)
[2019-10-27] MEDS: ENOXAPARIN SODIUM INJ 40 MG/0.4 ML DISP.SYRIN SUBCUT SCH (09:11)
[2019-10-27] MEDS: ACETAMINOPHEN 325 MG TABLET PO PRN (09:11)
--- NOTE | 2019-10-27 11:05 | PDOC DISCHARGE SUMMARY ---
Impression - Admit/DC Date/PCP Admission Date/Primary Care Provider: 10/25/19 15:42 CARRIE HERNANDEZ MD Discharge Date: 10/27/19 - Discharge Diagnosis (1) Chest pain Is this a current diagnosis for this admission?: Yes (2) Diabetes mellitus type 2 in obese Is this a current diagnosis for this admission?: Yes (3) Gastroesophageal reflux disease Is this a current diagnosis for this admission?: Yes (4) HTN (hypertension) Is this a current diagnosis for this admission?: Yes (5) Morbid obesity Is this a current diagnosis for this admission?: Yes (6) MJ on CPAP Is this a current diagnosis for this admission?: Yes - Additional Information Discharge Diet: Diabetic Discharge Activity: Activity As Tolerated Referrals: CARRIE HERNANDEZ MD [Primary Care Provider] - Prescriptions: Pantoprazole Sodium [Protonix [address] Tablet] 40 mg PO BID@0600,1700 #60 tablet. Home Medications: Naproxen [Naprosyn 250 mg Tablet] 1 tab PO BID #14 tablet 08/24/19 Pantoprazole Sodium [Protonix [address] Tablet] 40 mg PO BID@0600,1700 #60 tablet. 10/27/19 History of Present Illiness History of Present Illness: STEVEN CORREIA is a 49 year old female This is a 49-year-old female admitting in the hospital for the chest pain to rule out acute coronary syndromes was present in the Dr. Hernandez's office Hospital Course Hospital Course: This is a 49-year-old patient of Dr. Hernandez with a history of the type 2 diabetes hyperlipidemia morbid obesity sleep apnea and hiatal hernia presents Dr. Hernandez's office with a complaint of chest pain and patient admitting in the hospital for further evaluations Patient's all cardiac enzyme is negative's patient CT angiogram was also negative's Patient seen by the cardiology and suggest most likely noncardiac and follow outpatients for the stress test Patient is otherwise giving the Protonix 40 mg twice a day Patient is continues the blood pressure medicine at home's [place] Patient is diet controlled with the diabetes I believe Patient is to follow with the Dr. Goff in a 1 week Follow with the Dr. Berger Physical Exam Vital Signs: Temp Pulse Resp BP Pulse Ox 98.2 F 81 18 131/68 H 99 10/27/19 09:09 10/27/19 09:09 10/27/19 09:09 10/27/19 09:09 10/27/19 09:09 Intake & Output 10/26/19 10/27/19 10/28/19 06:59 06:59 06:59 Intake Total 543 1520 Output Total 0 0 Balance 543 1520 Weight 134.4 kg 134.4 kg General appearance: PRESENT: no acute distress, well-developed, well-nourished Head exam: PRESENT: atraumatic, normocephalic Eye exam: PRESENT: conjunctiva pink, EOMI, PERRLA. ABSENT: scleral icterus Ear exam: PRESENT: normal external ear exam Mouth exam: PRESENT: moist, tongue midline Neck exam: ABSENT: carotid bruit, JVD, lymphadenopathy, thyromegaly Respiratory exam: PRESENT: clear to auscultation caden. ABSENT: rales, rhonchi, wheezes Cardiovascular exam: PRESENT: RRR. ABSENT: diastolic murmur, rubs, systolic murmur Pulses: PRESENT: normal dorsalis pedis pul Vascular exam: PRESENT: normal capillary refill GI/Abdominal exam: PRESENT: normal bowel sounds, soft. ABSENT: distended, guarding, mass, organolmegaly, rebound, tenderness Rectal exam: PRESENT: deferred Extremities exam: PRESENT: full ROM. ABSENT: calf tenderness, clubbing, pedal edema Neurological exam: PRESENT: alert, awake, oriented to person, oriented to place, oriented to time, oriented to situation, CN II-XII grossly intact. ABSENT: motor sensory deficit Psychiatric exam: PRESENT: appropriate affect, normal mood. ABSENT: homicidal ideation, suicidal ideation Skin exam: PRESENT: dry, intact, warm. ABSENT: cyanosis, rash Results Laboratory Results: WBC 6.9 10^3/uL (4.0-10.5) 10/25/19 18:56 RBC 5.09 10^6/uL (3.72-5.28) 10/25/19 18:56 Hgb 13.5 g/dL (12.0-15.5) 10/25/19 18:56 Hct 41.1 % (36.0-47.0) 10/25/19 18:56 MCV 81 fl (80-97) 10/25/19 18:56 MCH 26.6 pg (27.0-33.4) L 10/25/19 18:56 MCHC 32.9 g/dL (32.0-36.0) 10/25/19 18:56 RDW 14.0 % (11.5-14.0) 10/25/19 18:56 Plt Count 225 10^3/uL (150-450) 10/25/19 18:56 Lymph % (Auto) 28.4 % (13-45) 10/25/19 18:56 [place] % (Auto) 7.7 % (3-13) 10/25/19 18:56 Eos % (Auto) 2.4 % (0-6) 10/25/19 18:56 Baso % (Auto) 0.7 % (0-2) 10/25/19 18:56 Absolute Neuts (auto) 4.2 10^3/uL (1.7-8.2) 10/25/19 18:56 Absolute Lymphs (auto) 1.9 10^3/uL (0.5-4.7) 10/25/19 18:56 Absolute Monos (auto) 0.5 10^3/uL (0.1-1.4) 10/25/19 18:56 Absolute Eos (auto) 0.2 10^3/uL (0.0-0.6) 10/25/19 18:56 Absolute Basos (auto) 0.0 10^3/uL (0.0-0.2) 10/25/19 18:56 Seg Neutrophils % 60.8 % (42-78) 10/25/19 18:56 D-Dimer 0.61 ug/mL (0.00-0.50) H 10/25/19 18:56 Sodium 137.6 mmol/L (137-145) 10/25/19 18:56 Potassium 3.9 mmol/L (3.6-5.0) 10/25/19 18:56 Chloride 102 mmol/L (98-107) 10/25/19 18:56 Carbon Dioxide 27 mmol/L (22-30) 10/25/19 18:56 Anion Gap 9 (5-19) 10/25/19 18:56 BUN 11 mg/dL (7-20) 10/25/19 18:56 Creatinine 0.76 mg/dL (0.52-1.25) 10/25/19 18:56 Est GFR ( Amer) > 60 (>60) 10/25/19 18:56 Est GFR (MDRD) Non-Af > 60 (>60) 10/25/19 18:56 Glucose 178 mg/dL (75-110) H 10/25/19 18:56 POC Glucose 225 mg/dL (70-110) H 10/27/19 09:06 Hemoglobin A1c % 8.0 % (4.7-6.0) H 10/25/19 18:56 Calcium 9.2 mg/dL (8.4-10.2) 10/25/19 18:56 Total Bilirubin 0.4 mg/dL (0.2-1.3) 10/25/19 18:56 Direct Bilirubin 0.1 mg/dL (0.0-0.4) 10/25/19 18:56 Neonat Total Bilirubin Not Reportable 10/25/19 18:56 Neonat Direct Bilirubin Not Reportable 10/25/19 18:56 Neonat Indirect Bili Not Reportable 10/25/19 18:56 AST 19 U/L (14-36) 10/25/19 18:56 ALT 20 U/L (<35) 10/25/19 18:56 Alkaline Phosphatase 85 U/L (38-126) 10/25/19 18:56 Creatine Kinase 92 U/L (30-135) 10/26/19 21:09 CK-MB (CK-2) 0.82 ng/mL (<4.55) 10/26/19 21:09 Troponin I < 0.012 ng/mL 10/26/19 21:09 Total Protein 6.9 g/dL (6.3-8.2) 10/25/19 18:56 Albumin 3.6 g/dL (3.5-5.0) 10/25/19 18:56 TSH 1.52 uIU/mL (0.47-4.68) 10/25/19 18:56 Free T4 0.99 ng/dL (0.78-2.19) 10/25/19 18:56 Urine Color YELLOW 10/25/19 23:00 Urine Appearance CLOUDY 10/25/19 23:00 Urine pH 5.0 (5.0-9.0) 10/25/19 23:00 Ur Specific [place] 1.025 10/25/19 23:00 Urine Protein 30 mg/dL (NEGATIVE) H 10/25/19 23:00 Urine Glucose (UA) 50 mg/dL (NEGATIVE) H 10/25/19 23:00 Urine Ketones NEGATIVE mg/dL (NEGATIVE) 10/25/19 23:00 Urine Blood NEGATIVE (NEGATIVE) 10/25/19 23:00 Urine Nitrite NEGATIVE (NEGATIVE) 10/25/19 23:00 Urine Bilirubin NEGATIVE (NEGATIVE) 10/25/19 23:00 Urine Urobilinogen 2.0 mg/dL (<2.0) H 10/25/19 23:00 Ur Leukocyte Esterase LARGE (NEGATIVE) H 10/25/19 23:00 Urine WBC (Auto) 61 /HPF 10/25/19 23:00 Urine RBC (Auto) 6 /HPF 10/25/19 23:00 Squamous Epi Cells Auto 16 /HPF 10/25/19 23:00 Urine Mucus (Auto) RARE /LPF 10/25/19 23:00 Urine Ascorbic Acid NEGATIVE (NEGATIVE) 10/25/19 23:00 10/25/19 10/26/19 10/26/19 18:56 09:43 14:58 CK-MB (CK-2) 1.89 1.12 1.12 Troponin I < 0.012 < 0.012 < 0.012 10/26/19 21:09 CK-MB (CK-2) 0.82 Troponin I < 0.012 Impressions: Chest X-Ray 10/25/19 00:00 IMPRESSION: No evidence of acute cardiopulmonary disease. Chest/Abdomen CTA 10/26/19 00:00 IMPRESSION: 1. No evidence of aortic aneurysm or dissection. 2. No gross pulmonary embolus, mildly limited contrast bolus. 3. Clear lungs. No active infiltrates or suspicious opacity. Plan Time Spent: Greater than 30 Minutes - Follow-up with the Dr. Catalan as outpatients for the stress test Continues the PPI and continues to sleep apnea machines Stroke Is this a Stroke Patient?: No Acute Heart Failure - Is this a Heart Failure Patient?: No
[2019-10-27 11:14] VITALS: BP 136/70
== END 2019-10-27 11:36 | disposition home or self-care (01) ==
LOC: 3W 15:42 → OBSVTOIN 16:58 → INTOOBSV 16:58
PROVIDERS: ADMIT Internal Medicine; ATTEND Internal Medicine
DX: R07.2 Precordial pain (principal); E11.9 Type 2 diabetes mellitus without complications; K21.9 Gastro-esophageal reflux disease without esophagitis; I10 Essential (primary) hypertension; E66.01 Morbid (severe) obesity due to excess calories; G47.33 Obstructive sleep apnea (adult) (pediatric); M25.512 Pain in left shoulder; M13.812 Other specified arthritis, left shoulder; M13.811 Other specified arthritis, right shoulder; Z90.49 Acquired absence of other specified parts of digestive tract; I45.10 Unspecified right bundle-branch block; I44.0 Atrioventricular block, first degree; R79.89 Other specified abnormal findings of blood chemistry; Z79.899 Other long term (current) drug therapy; Z87.01 Personal history of pneumonia (recurrent); Z98.84 Bariatric surgery status; F32.9 Major depressive disorder, single episode, unspecified; Z82.49 Family history of ischemic heart disease and other diseases of the circulatory system
CPT/HCPCS: 36415 ×2; 84439; 82553 ×2; 82962 ×3; 82550 ×2; 84443; 85025; 80076; 80048; 81001; 84484 ×2; 83036; 85379; 71046; 71275; 93005 ×2; 93010 ×2; G0378 ×3; G0379; J3490 ×4; J1815 ×3; J1650 ×2

== ENCOUNTER → 2019-11-08 | Outpatient (CLI) | payer OTHER ==
[~2019-11-08] MED LIST changes: -BUPIVACAINE HCL 0.25% /EPINEPHRINE INJ/PF 30 ML SDV ONE; -CEFAZOLIN 1 GM/D5W RTU 1 GM/50 ML RTUPB IV PRN; -LACTATED RINGERS 1000 ML IV PRN; -LIDOCAINE 0.5% INJ-PF (5 MG/ML) 50 ML SDV SUBCUT PRN; -METHYLENE BLUE 50 MG/10 ML AMPULE ONE; +REGADENOSON INJ 0.4 MG/5 ML DISP.SYRIN IV ONE
--- NOTE | 2019-11-10 22:13 | DRAGON STRESS TEST REPORT ---
Intravenous Lexiscan Cardiolite stress test using single photon emmision computerized tomography. Date of procedure:11/08/2019.Ordering Provider:Dr. Micheline Berger. Patient's status: Outpatient. Indication: Chest pain patient with abnormal EKG.. Coronary risk factors: Age, diabetes mellitus, hypertension, and family history of coronary artery disease. Resting EKG: Sinus Rhythm. Right bundle branch block pattern. Stress EKG: No changes of ischemia. The patient had no chest pain or discomfort. There was no arrhythmias seen. Reason for termination: Protocol. Conclusions: Normal EKG and hemodynamic response to IV Lexiscan. Nuclear data: At rest the patient was given 15.74 millicuries of technetium 99m sestamibi injected intravenously. As per protocol rest non gated SPECT images were obtained. Subsequently the patient was given intravenous Lexiscan at a dose of 0.4 mg in 5 mL intravenously, followed by flush with normal saline. Subsequently the stress dose of 45.9 millicuries of technetium 99m sestamibi was injected intravenously. As per protocol stress gated images were obtained. Nuclear interpretation: Review of images showed that all segments of the myocardium had normal perfusion at rest, and normal perfusion post stress with IV Lexiscan. All segments of the myocardium had normal motion, contraction, and thickening by gated study. T. I D. ratio was normal at 1.13. There is no transient ischemic dilatation of the left ventricle. Computer read rest, and stress left ventricular ejection fraction were 61 %, and 60 %, respectively. Conclusion: 1. There is no scintigraphic evidence of Lexiscan induced myocardial ischemia. 2. There is no scintigraphic evidence of myocardial infarction/scar. Recommendations: Aggressive risk factor modification, and treating the underlying co- morbidities. [facility]
== END ==
LOC: RAD 07:56
PROVIDERS: ATTEND Specialist
DX: R07.9 Chest pain, unspecified (principal)
CPT/HCPCS: 93017; 78452; A9500; J2785; Q9969

== ENCOUNTER 2019-11-27 09:38 | Emergency (ER) | payer OTHER ==
[2019-11-27] MEDS ORDERED: HYDROCODONE/ACETAMINOPHEN 5-325 MG TABLET PO ONE (10:22)
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
[2019-11-27 14:18] VITALS: BP 148/78
== END 2019-11-27 14:00 | disposition home or self-care (01) ==
LOC: ER 09:38
DX: S16.1XXA Strain of muscle, fascia and tendon at neck level, initial encounter (principal); S39.012A Strain of muscle, fascia and tendon of lower back, initial encounter; S73.102A Unspecified sprain of left hip, initial encounter; R51 Headache; M53.3 Sacrococcygeal disorders, not elsewhere classified; M25.562 Pain in left knee; M25.561 Pain in right knee; R68.84 Jaw pain; V89.2XXA Person injured in unspecified motor-vehicle accident, traffic, initial encounter
CPT/HCPCS: 70110; 72110; 72170; 72192; 72220; 99284

== ENCOUNTER 2020-04-16 14:36 | Emergency (ER) | payer OTHER ==
[2020-04-16] MEDS ORDERED: KETOROLAC TROMETHAMINE 60 MG/2 ML SDV IM ONE (15:00)
--- NOTE | 2020-04-16 16:20 | RADIOLOGY REPORT (SQ) ---
EXAM DESCRIPTION: L SPINE WHOLE IMAGES COMPLETED DATE/TIME: 04/16/2020 3:50 pm REASON FOR STUDY: fall/back injury COMPARISON: 11/27/2019 NUMBER OF VIEWS: Five views including obliques. TECHNIQUE: AP, lateral, oblique, and sacral radiographic images acquired of the lumbar spine. LIMITATIONS: None. FINDINGS: MINERALIZATION: Normal. SEGMENTATION: Normal. No transitional anatomy. ALIGNMENT: Normal. VERTEBRAE: Maintained height. No fracture or worrisome bone lesion. DISCS: Mild disc space narrowing with osteophytes. POSTERIOR ELEMENTS: Pedicles and facets are intact. No pars defect or posterior arch defects. Facet arthropathy is present. HARDWARE: None in the spine. PARASPINAL SOFT TISSUES: Normal. PELVIS: Intact as visualized. No fractures or worrisome bone lesions. SI joints intact. OTHER: No other significant finding. IMPRESSION: Mild degenerative changes. No acute findings. TECHNICAL DOCUMENTATION: JOB ID: [id number] 2010 [facility] [employer]- All Rights Reserved Reading location - IP/workstation name: [email or web address]
[2020-04-16 16:26] VITALS: BP 150/81
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
== END 2020-04-16 16:29 | disposition home or self-care (01) ==
LOC: ER 14:36
DX: S20.229A Contusion of unspecified back wall of thorax, initial encounter (principal); M51.36 Other intervertebral disc degeneration, lumbar region; M54.5 Low back pain; W19.XXXA Unspecified fall, initial encounter; W11.XXXA Fall on and from ladder, initial encounter; I10 Essential (primary) hypertension; E11.9 Type 2 diabetes mellitus without complications; Z90.49 Acquired absence of other specified parts of digestive tract; Z95.1 Presence of aortocoronary bypass graft
CPT/HCPCS: 99283; 96372; 72110; J1885

== ENCOUNTER → 2020-04-30 | Outpatient (CLI) | payer OTHER ==
--- NOTE | 2020-04-30 15:17 | RADIOLOGY REPORT (SQ) ---
EXAM DESCRIPTION: MRI LT LOWER JOINT WITHOUT IMAGES COMPLETED DATE/TIME: 04/30/2020 2:18 pm REASON FOR STUDY: UNSPECIFIED INTERNAL DERANGEMENT OF LEFT KNEE (M23.92) M23.92 UNSPECIFIED INTERNA L DERANGEMENT OF LEFT KNEE COMPARISON: None. TECHNIQUE: Leftknee images acquired and stored on PACS. Multiplanar images include fat sensitive se quences as T1, water sensitive sequences as FST2 or STIR, cartilage sensitive sequences as FSPD, and gradient echo sequences. LIMITATIONS: Motion. Body habitus. FINDINGS: JOINT AND BURSAE: Joint effusion. BONE CORTEX AND MARROW: No alteration of signal to suggest marrow replacement. No worrisome bone lesi ons. No occult fracture. ACL: Intact. No degeneration or ganglion cyst. PCL: Intact. MCL: Intact. No periligamentous edema or fluid. LCL: Intact. No periligamentous edema or fluid. MEDIAL MENISCUS: Central intermediate T2 signal. No extension to the articular surface. LATERAL MENISCUS: No tears. No abnormal signal. MEDIAL COMPARTMENT: Mild osteoarthritis. No subchondral edema. LATERAL COMPARTMENT: Cartilage preserved. No bone bruises or reactive marrow edema. No osteophytes. PATELLA: Full-thickness fissuring of the patellar cartilage medial to midline. Intact retinaculum. EXTENSOR MECHANISM: Intact. Quadriceps and patella tendons normal. SOFT TISSUES: Adjacent muscles and subcutaneous tissues normal. Normal flow void in popliteal artery and vein. OTHER: No other significant finding. IMPRESSION: 1. Intrasubstance degeneration medial meniscus. No definite tear identified. 2. Chondromalacia. Mild osteoarthritis medial compartment. TECHNICAL DOCUMENTATION: JOB ID: [id number] 2010 [email or web address]- All Rights Reserved Reading location - IP/workstation name: [email or web address]
== END ==
LOC: RAD 12:25
PROVIDERS: ATTEND Family Medicine
DX: M23.92 Unspecified internal derangement of left knee (principal); M94.262 Chondromalacia, left knee; M17.12 Unilateral primary osteoarthritis, left knee

== ENCOUNTER 2020-05-02 18:43 | Emergency (ER) | payer OTHER ==
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
[2020-05-02 20:26] LABS: APPEARANCE,URINE SLIGHTLY-CLOUDY; BILIRUBIN,URINE NEGATIVE (NEGATIVE); COLOR,URINE YELLOW; GLUCOSE, URINE >=500 mg/dL (NEGATIVE); KETONES,URINE 20 mg/dL (NEGATIVE); LEUKOCYTE ESTERASE,URINE NEGATIVE (NEGATIVE); NITRITE,URINE NEGATIVE (NEGATIVE); PROTEIN,URINE NEGATIVE (NEGATIVE); URINE SPECIFIC GRAVITY 1.023
--- NOTE | 2020-05-02 21:15 | EKG REPORT ---
SEVERITY:- ABNORMAL ECG - SINUS RHYTHM FIRST DEGREE AV BLOCK RIGHT BUNDLE BRANCH BLOCK : Confirmed by: Liborio Min MD 02-May-2020 21:15:10
[2020-05-02 22:27] LABS: ABSOLUTE BASOPHILS # (AUTO) 0.1 10^3/uL (0.0-0.2); ABSOLUTE EOSINOPHILS # (AUTO) 0.1 10^3/uL (0.0-0.6); ABSOLUTE LYMPHOCYTES (AUTO) 1.4 10^3/uL (0.5-4.7); ABSOLUTE MONOCYTES (AUTO) 0.3 10^3/uL (0.1-1.4); ABSOLUTE NEUT (AUTO) 5.6 10^3/uL (1.7-8.2); EOSINOPHILS % (AUTO) 0.8 % (0-6); HEMATOCRIT 45.2 % (36.0-47.0); HEMOGLOBIN 14.9 g/dL (12.0-15.5); LYMPHOCYTES % (AUTO) 18.8 % (13-45); MEAN CORPUSCULAR HEMOGLOBIN 26.6 pg (27.0-33.4); MEAN CORPUSCULAR HGB CONC 32.9 g/dL (32.0-36.0); MEAN CORPUSCULAR VOLUME 81 fl (80-97); MONOCYTES % (AUTO) 4.4 % (3-13); PLATELET COUNT 146 10^3/uL (150-450); RED BLOOD COUNT 5.58 10^6/uL (3.72-5.28); RED CELL DISTRIBUTION WIDTH 14.2 % (11.5-14.0); TOTAL CELLS COUNTED % (AUTO) 100 %; WHITE BLOOD COUNT 7.5 10^3/uL (4.0-10.5)
--- NOTE | 2020-05-02 22:59 | RADIOLOGY REPORT (SQ) ---
EXAM DESCRIPTION: X-RAY CHEST- One View CLINICAL HISTORY: Weakness COMPARISON: October 25, 2019 TECHNIQUE: Single view of the chest. FINDINGS: There are overlying EKG leads. There are low lung volumes with compressive changes. There are no discrete air space infiltrates, pneumothoraces or pleural effusions. The pulmonary vascularity is normal. The cardiomediastinal silhouette is normal in size. See structures are stable in appearance. IMPRESSION: There are no acute lung parenchymal findings. Low lung volumes with compressive changes are noted.
[2020-05-03] MEDS ORDERED: CLONIDINE HCL 0.1 MG TABLET PO ONE (01:02)
[2020-05-03 01:17] LABS: ALBUMIN 3.6 g/dL (3.5-5.0); ALKALINE PHOSPHATASE 86 U/L (38-126); ANION GAP 6 (5-19); ASPARTATE AMINO TRANSFERASE 21 U/L (14-36); BILIRUBIN,TOTAL 0.5 mg/dL (0.2-1.3); BLOOD UREA NITROGEN 13 mg/dL (7-20); CALCIUM 9.1 mg/dL (8.4-10.2); CARBON DIOXIDE 27 mmol/L (22-30); CHLORIDE 103 mmol/L (98-107); CREATINE KINASE 155 U/L (30-135); GLUCOSE 250 mg/dL (75-110); POTASSIUM 4.3 mmol/L (3.6-5.0); TOTAL PROTEIN 6.7 g/dL (6.3-8.2)
[2020-05-03 01:50] VITALS: BP 169/109
== END 2020-05-03 01:49 | disposition home or self-care (01) ==
LOC: ER 18:43
DX: R42 Dizziness and giddiness (principal); R82.4 Acetonuria; I10 Essential (primary) hypertension; R53.1 Weakness; E11.9 Type 2 diabetes mellitus without complications
CPT/HCPCS: 36415; 71045; 80053; 81001; 82550; 83735; 84484; 85025; 93005; 93010; 99291; 99292

== ENCOUNTER 2020-05-03 22:14 | Emergency (ER) | payer OTHER ==
[2020-05-03] MEDS ORDERED: KETOROLAC TROMETHAMINE INJ/PF 30 MG/1 ML SDV IV ONE (23:31)
[2020-05-03] MEDS ORDERED: ONDANSETRON HCL INJ/PF 4 MG/2 ML SDV IV ONE (23:31)
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
[2020-05-04 00:09] LABS: ABSOLUTE BASOPHILS # (AUTO) 0.1 10^3/uL (0.0-0.2); ABSOLUTE EOSINOPHILS # (AUTO) 0.1 10^3/uL (0.0-0.6); ABSOLUTE LYMPHOCYTES (AUTO) 2.4 10^3/uL (0.5-4.7); ABSOLUTE MONOCYTES (AUTO) 0.5 10^3/uL (0.1-1.4); BASOPHILS % (AUTO) 1.1 % (0-2); EOSINOPHILS % (AUTO) 1.9 % (0-6); HEMATOCRIT 43.4 % (36.0-47.0); HEMOGLOBIN 14.6 g/dL (12.0-15.5); LYMPHOCYTES % (AUTO) 33.6 % (13-45); MEAN CORPUSCULAR HEMOGLOBIN 27.1 pg (27.0-33.4); MEAN CORPUSCULAR HGB CONC 33.6 g/dL (32.0-36.0); MEAN CORPUSCULAR VOLUME 81 fl (80-97); MONOCYTES % (AUTO) 7.6 % (3-13); PLATELET COUNT 228 10^3/uL (150-450); RED BLOOD COUNT 5.37 10^6/uL (3.72-5.28); SEGMENTED NEUTROPHILS % (AUTO) 55.8 % (42-78); TOTAL CELLS COUNTED % (AUTO) 100 %; WHITE BLOOD COUNT 7.2 10^3/uL (4.0-10.5)
[2020-05-04 00:10] LABS: APPEARANCE,URINE CLEAR; BILIRUBIN,URINE NEGATIVE (NEGATIVE); COLOR,URINE YELLOW; GLUCOSE, URINE >=500 mg/dL (NEGATIVE); KETONES,URINE NEGATIVE (NEGATIVE); LEUKOCYTE ESTERASE,URINE NEGATIVE (NEGATIVE); NITRITE,URINE NEGATIVE (NEGATIVE); PROTEIN,URINE NEGATIVE (NEGATIVE); URINE SPECIFIC GRAVITY 1.015; UROBILINOGEN,URINE NEGATIVE mg/dL (<2.0)
[2020-05-04 00:20] LABS: ALBUMIN 4.2 g/dL (3.5-5.0); ALKALINE PHOSPHATASE 108 U/L (38-126); ANION GAP 6 (5-19); ASPARTATE AMINO TRANSFERASE 25 U/L (14-36); BILIRUBIN,DIRECT 0.2 mg/dL (0.0-0.4); BILIRUBIN,TOTAL 0.6 mg/dL (0.2-1.3); BLOOD UREA NITROGEN 12 mg/dL (7-20); CALCIUM 9.7 mg/dL (8.4-10.2); CARBON DIOXIDE 29 mmol/L (22-30); CHLORIDE 101 mmol/L (98-107); GLUCOSE 251 mg/dL (75-110); POTASSIUM 4.3 mmol/L (3.6-5.0); TOTAL PROTEIN 7.7 g/dL (6.3-8.2)
[2020-05-04] MEDS ORDERED: MORPHINE SULFATE 10 MG/ML INJ IV ONE (00:40)
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
--- NOTE | 2020-05-04 01:20 | RADIOLOGY REPORT (SQ) ---
EXAM DESCRIPTION: XR RIGHT HIP AND PELVIS, 2 VIEWS COMPLETED DATE/TME: 05/04/2020 00:39 CLINICAL HISTORY: 50 years, Female, right hip pain, ? injury COMPARISON: None. NUMBER OF VIEWS: TECHNIQUE: LIMITATIONS: None. FINDINGS: No fracture or dislocation. The sacroiliac and hip joints appear intact. There is atherosclerotic arterial calcification. IMPRESSION: No acute finding. copyright 2010 [employer]- All Rights Reserved
[2020-05-04] MEDS ORDERED: HYDROCODONE/ACETAMINOPHEN 5-325 MG (6 TAB/ER DISP) PO PRN (01:42)
[2020-05-04 02:07] VITALS: BP 138/89
== END 2020-05-04 02:08 | disposition home or self-care (01) ==
LOC: ER 22:14
DX: M25.551 Pain in right hip (principal); M54.5 Low back pain; M54.9 Dorsalgia, unspecified; M79.10 Myalgia, unspecified site; M79.604 Pain in right leg; Z79.899 Other long term (current) drug therapy; I10 Essential (primary) hypertension; E11.9 Type 2 diabetes mellitus without complications
CPT/HCPCS: 99283; 96374; 96375; 36415; 83690; 85025; 87070; 81001; 73502; J1885; J2270; J2405

== ENCOUNTER 2020-05-08 07:09 | Emergency (ER) | payer OTHER ==
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
[2020-05-08] MEDS ORDERED: FENTANYL CITRATE INJ/PF 100 MCG/2 ML AMPUL IM PRN (10:27)
--- NOTE | 2020-05-08 11:23 | RADIOLOGY REPORT (SQ) ---
EXAM DESCRIPTION: CT HEAD WITHOUT IMAGES COMPLETED DATE/TIME: 05/08/2020 11:04 am REASON FOR STUDY: loc COMPARISON: None. TECHNIQUE: Axial images acquired through the brain without intravenous contrast. Images reviewed wi th bone, brain and subdural windows. Additional sagittal and coronal reconstructions were generated. Images stored on PACS. All CT scanners at this facility use dose modulation, iterative reconstruction, and/or weight based d osing when appropriate to reduce radiation dose to as low as reasonably achievable (ALARA). [facility]: Dose Right [facility]: CareDose [facility]: Dose Right [facility]: Teradose 4D [facility]: STinser RADIATION DOSE: CT Rad equipment meets quality standard of care and radiation dose reduction techniq ues were employed. CTDIvol: 53.2 mGy. DLP: 964 mGy-cm. mGy. LIMITATIONS: None. FINDINGS: VENTRICLES: Normal size and contour. CEREBRUM: No masses. No hemorrhage. No midline shift. No evidence for acute infarction. Normal gra y/white matter differentiation. No areas of low density in the white matter. CEREBELLUM: No masses. No hemorrhage. No alteration of density. No evidence for acute infarction. EXTRAAXIAL SPACES: No fluid collections. No masses. ORBITS AND GLOBE: No intra- or extraconal masses. Normal contour of globe without masses. CALVARIUM: No fracture. PARANASAL SINUSES: No fluid or mucosal thickening. SOFT TISSUES: No mass or hematoma. OTHER: No other significant finding. IMPRESSION: NO ACUTE INTRACRANIAL IMAGING FINDINGS. EVIDENCE OF ACUTE STROKE: NO. COMMENT: Quality ID # [id number]: Final reports with documentation of one or more dose reduction techniques (e.g., Automated exposure control, adjustment of the mA and/or kV according to patient size, use of iterative reconstruction technique) TECHNICAL DOCUMENTATION: JOB ID: [id number] 2010 [employer]- All Rights Reserved Reading location - IP/workstation name: [email or web address]
--- NOTE | 2020-05-08 11:49 | RADIOLOGY REPORT (SQ) ---
EXAM DESCRIPTION: L SPINE WHOLE IMAGES COMPLETED DATE/TIME: 05/08/2020 11:13 am REASON FOR STUDY: pain COMPARISON: 04/16/2020 NUMBER OF VIEWS: Five views including obliques. TECHNIQUE: AP, lateral, oblique, and sacral radiographic images acquired of the lumbar spine. LIMITATIONS: None. FINDINGS: MINERALIZATION: Normal. SEGMENTATION: 5 [id number] lumbar vertebral bodies. ALIGNMENT: Straightening of the normal lumbar lordosis, possibly positional. VERTEBRAE: Maintained height. No fracture or worrisome bone lesion. DISCS: Mild disc height loss and osteophytosis predominantly at L3-S1. POSTERIOR ELEMENTS: Pedicles and facets are intact. No pars defect. Lower lumbar facet arthropathy. HARDWARE: None in the spine. PARASPINAL SOFT TISSUES: Normal. PELVIS: Intact as visualized. No fractures or worrisome bone lesions. SI joints intact. OTHER: No other significant finding. IMPRESSION: No evidence of acute bony abnormality of the lumbar spine. Mild lower lumbar degenerati ve disc disease and facet arthropathy. TECHNICAL DOCUMENTATION: JOB ID: [id number] 2010 [employer]- All Rights Reserved Reading location - IP/workstation name: [email or web address]
[2020-05-08 12:40] VITALS: BP 132/98
== END 2020-05-08 13:12 | disposition home or self-care (01) ==
LOC: ER 07:09
DX: R55 Syncope and collapse (principal); M54.41 Lumbago with sciatica, right side; M25.551 Pain in right hip; W11.XXXA Fall on and from ladder, initial encounter; I10 Essential (primary) hypertension; E11.9 Type 2 diabetes mellitus without complications
CPT/HCPCS: 99291; 99292; 96372; 72110; 70450; J3010

== ENCOUNTER → 2020-05-11 | Outpatient (CLI) | payer OTHER ==
--- NOTE | 2020-05-11 16:17 | RADIOLOGY REPORT (SQ) ---
EXAM DESCRIPTION: NM 3 PHASE BONE SCAN IMAGES COMPLETED DATE/TIME: 05/11/2020 3:55 pm REASON FOR STUDY: M84.351A STRESS FRACTURE, RIGHT FEMUR, INITIAL ENCOUNTER FOR FRACTURE M84.351A ST RESS FRACTURE, RIGHT FEMUR, INITIAL ENCOUNTER FOR COMPARISON: No available imaging studies for comparison. RADIONUCLIDE AND DOSE: 21.8 millicuries Tc99m MDP. The route of agent administration: Intravenous. ADDITIONAL DRUGS AND DOSES: None. TECHNIQUE: Following injection of the radiopharmaceutical, serial blood flow images acquired. Equil ibrium blood pool images then acquired. Routine delayed images at 3 hour acquired of the areas of cl inical concern with additional focused images as needed. AREA OF INTEREST: Right hip pain LIMITATIONS: Study is limited due to patient's clinical condition. Patient was unable to lie on the table supine only anterior flow studies were performed. Due to body habitus right left hips were do ne separately. The entire length of the femurs were not imaged. FINDINGS: VASCULAR FLOW IMAGES: No asymmetry or focal areas of hyperemia. BLOOD POOL IMAGES: No asymmetry or focal areas of soft-tissue hyper-perfusion. BONES: Normal visualization without areas of photopenia or increased bony uptake of radiopharmaceutic al. KIDNEYS: Symmetric excretion without obstruction. OTHER: No other significant finding. IMPRESSION: Limited 3 phase bone scan as described. No abnormal findings. COMMENT: Quality measure 147: Current bone scan is compared with any available plain radiographs, p rior bone scans, and CT/MRI. TECHNICAL DOCUMENTATION: JOB ID: [id number] 2010 [employer]- All Rights Reserved Reading location - IP/workstation name: [email or web address]
== END ==
LOC: RAD 11:33
PROVIDERS: ATTEND Family Medicine
DX: M84.351A Stress fracture, right femur, initial encounter for fracture (principal)
CPT/HCPCS: 78315; A9503; Q9969

== ENCOUNTER 2020-05-12 16:00 | Emergency (ER) | payer OTHER ==
[2020-05-12 16:07] VITALS: BP 173/75
[2020-05-12] MEDS ORDERED: MORPHINE SULFATE 10 MG/ML INJ IV ONE (16:33)
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
[2020-05-12 17:38] LABS: APPEARANCE,URINE CLOUDY; BILIRUBIN,URINE NEGATIVE (NEGATIVE); COLOR,URINE YELLOW; GLUCOSE, URINE 150 mg/dL (NEGATIVE); KETONES,URINE NEGATIVE (NEGATIVE); LEUKOCYTE ESTERASE,URINE TRACE (NEGATIVE); NITRITE,URINE NEGATIVE (NEGATIVE); PROTEIN,URINE 30 mg/dL (NEGATIVE); URINE SPECIFIC GRAVITY 1.031
[2020-05-12 17:49] LABS: ABSOLUTE EOSINOPHILS # (AUTO) 0.2 10^3/uL (0.0-0.6); ABSOLUTE LYMPHOCYTES (AUTO) 1.2 10^3/uL (0.5-4.7); ABSOLUTE MONOCYTES (AUTO) 0.4 10^3/uL (0.1-1.4); ABSOLUTE NEUT (AUTO) 3.8 10^3/uL (1.7-8.2); BASOPHILS % (AUTO) 0.8 % (0-2); EOSINOPHILS % (AUTO) 3.2 % (0-6); HEMATOCRIT 44.6 % (36.0-47.0); HEMOGLOBIN 14.8 g/dL (12.0-15.5); LYMPHOCYTES % (AUTO) 22.1 % (13-45); MEAN CORPUSCULAR HEMOGLOBIN 27.1 pg (27.0-33.4); MEAN CORPUSCULAR HGB CONC 33.3 g/dL (32.0-36.0); MEAN CORPUSCULAR VOLUME 82 fl (80-97); MONOCYTES % (AUTO) 7.6 % (3-13); PLATELET COUNT 239 10^3/uL (150-450); RED BLOOD COUNT 5.47 10^6/uL (3.72-5.28); RED CELL DISTRIBUTION WIDTH 14.5 % (11.5-14.0); SEGMENTED NEUTROPHILS % (AUTO) 66.3 % (42-78); TOTAL CELLS COUNTED % (AUTO) 100 %; WHITE BLOOD COUNT 5.7 10^3/uL (4.0-10.5)
[2020-05-12 18:07] LABS: ALBUMIN 4.2 g/dL (3.5-5.0); ALKALINE PHOSPHATASE 92 U/L (38-126); ANION GAP 7 (5-19); ASPARTATE AMINO TRANSFERASE 22 U/L (14-36); BILIRUBIN,TOTAL 0.7 mg/dL (0.2-1.3); BLOOD UREA NITROGEN 14 mg/dL (7-20); CALCIUM 9.8 mg/dL (8.4-10.2); CARBON DIOXIDE 30 mmol/L (22-30); CHLORIDE 98 mmol/L (98-107); GLUCOSE 228 mg/dL (75-110); POTASSIUM 4.4 mmol/L (3.6-5.0); TOTAL PROTEIN 7.8 g/dL (6.3-8.2)
[2020-05-12] MEDS ORDERED: NORMAL SALINE 1000 ML 1,000 ML IV ONE (18:16)
--- NOTE | 2020-05-12 18:34 | RADIOLOGY REPORT (SQ) ---
EXAM DESCRIPTION: CHEST SINGLE VIEW IMAGES COMPLETED DATE/TIME: 05/12/2020 6:22 pm REASON FOR STUDY: weakness COMPARISON: 05/02/2020 EXAM PARAMETERS: NUMBER OF VIEWS: One view. TECHNIQUE: Single frontal radiographic view of the chest acquired. RADIATION DOSE: NA LIMITATIONS: None. FINDINGS: LUNGS AND PLEURA: No opacities, masses or pneumothorax. No pleural effusion. MEDIASTINUM AND HILAR STRUCTURES: No masses. Contour normal. HEART AND VASCULAR STRUCTURES: Stable appearance. Normal vasculature. BONES: No acute findings. HARDWARE: None in the chest. OTHER: No other significant finding. IMPRESSION: 1. No ACUTE RADIOGRAPHIC FINDING IN THE CHEST. TECHNICAL DOCUMENTATION: JOB ID: [id number] 2010 [employer]- All Rights Reserved Reading location - IP/workstation name: [email or web address]
--- NOTE | 2020-05-13 02:28 | EKG REPORT ---
SEVERITY:- ABNORMAL ECG - SINUS RHYTHM RIGHT BUNDLE BRANCH BLOCK : Confirmed by: Micheline Berger MD 13-May-2020 02:27:36
== END 2020-05-12 19:30 | disposition left against medical advice (07) ==
LOC: ER 16:00
DX: M54.5 Low back pain (principal); R07.9 Chest pain, unspecified; W11.XXXA Fall on and from ladder, initial encounter; Z53.29 Procedure and treatment not carried out because of patient's decision for other reasons; R53.1 Weakness; I10 Essential (primary) hypertension; E11.9 Type 2 diabetes mellitus without complications; Z98.84 Bariatric surgery status
CPT/HCPCS: 36415; 71045; 80053; 81001; 83735; 84484; 85025; 93005; 93010; 99285

== ENCOUNTER → 2020-11-27 | Outpatient (CLI) | payer OTHER ==
--- NOTE | 2020-11-27 09:01 | WOMENS IMAGING REPORT ---
EXAM DESCRIPTION: 3D SCREENING MAMMO BILAT IMAGES COMPLETED DATE/TIME: 11/27/2020 7:45 am REASON FOR STUDY: ROUTINE BILATERAL SCREENING;Z12.31 Z12.31 ENCNTR SCREEN MAMMOGRAM FOR MALIGNANT N EOPLASM OF MARC COMPARISON: 2017 and subsequent EXAM PARAMETERS: Standard craniocaudal and mediolateral oblique views of each breast recorded using digital acquisition and breast tomosynthesis. Read with the assistance of CAD. .[facility] - [employer]2 [employer] Version 2.1 LIMITATIONS: None. FINDINGS: Findings present which are benign by mammographic criteria. No suspicious masses, calcific ations or architectural distortion. Pertinent benign findings: Stable benign bilateral calcifications. Benign mammographic findings may include one or more of the following: Smooth masses, popcorn/rim/coa rse calcifications, asymmetries, post-procedure changes, and lesions with long-standing stability. IMPRESSION: BENIGN MAMMOGRAPHIC FINDINGS. BIRADS 2 BREAST DENSITY: a. The breasts are almost entirely fatty. BIRAD: ASSESSMENT: 2 BENIGN FINDING(S) RECOMMENDATION: ROUTINE SCREENING COMMENT: The patient has been notified of the results by letter per SA requirements. Additional no tification policies are in place for contacting patient with suspicious or incomplete findings. Quality ID #[id number]: The [employer] recommends an annual screening mammogram for women aged 40 years or over. This facility utilizes a reminder system to ensure that all patients receive reminder letters, and/or direct phone calls for appointments. This includes reminders for routine scr eening mammograms, diagnostic mammograms, or other Breast Imaging Interventions when appropriate. Th is patient will be placed in the appropriate reminder system. TECHNICAL DOCUMENTATION: FINDING NUMBER: (1) ASSESSMENT: (1) JOB ID: [id number] 2010 [employer]- All Rights Reserved Reading location - IP/workstation name: [email or web address]
== END ==
LOC: WI 07:23
PROVIDERS: ATTEND Internal Medicine
DX: Z12.31 Encounter for screening mammogram for malignant neoplasm of breast (principal)
CPT/HCPCS: 77063; 77067